=== PATIENT | female | born 1955 | race African-American/Black ===

== ENCOUNTER → 2016-10-30 | Day surgery (SDC) | payer OTHER ==
[~2016-10-30] VITALS: Ht 162.6 cm; Wt 100.0 kg
[~2016-10-30] MED LIST: BENA10TA PO; GLIP10TA6 PO; HYALURONIDASE/LIDOCAINE/EPINEPHRINE/BUPIVACAINE 4.5 ML SYR LEFT EYE ONE; HYALURONIDASE/LIDOCAINE/EPINEPHRINE/BUPIVACAINE 6 ML SYR LEFT EYE ONE; HYALURONIDASE/LIDOCAINE/EPINEPHRINE/BUPIVACAINE 6 ML SYR ONE; INSU1INJ5 SQ; INSULIN HUMAN REGULAR 1,000 UNITS/10 ML VIAL ONE; METF1000 PO; MIDAZOLAM HCL 2 MG/2 ML VIAL ONE; PROPARACAINE HCL 0.5% OPHT SOLN 15 ML BTL LEFT EYE ONE; PROPOFOL 200 MG/20 ML AMP ONE; SIMV20TA PO; SODIUM CHLORID 0.9% 500 ML INJ 500 ML ONE; TOBRAMYCIN 0.3%/DEXAMETHASONE 0.1% OPHT SUSP 5 ML BTL ONE; TOBRAMYCIN/DEXAMETHASONE OPTH OINT 3.5 GM TUBE LEFT EYE ONE
[2016-10-30 06:50] VITALS: BP 156/96; PULSE 87; RESP 16; TEMP 98.1; O2SAT 97
[2016-10-30] MEDS: FLURBIPROFEN 0.03% OPHT SOLN 2.5 ML BTL LEFT EYE SCH ×4 (06:55→07:10)
[2016-10-30] MEDS: TROPICAMIDE 1% OPHT SOLN 15 ML BTL LEFT EYE SCH ×4 (06:55→07:10)
[2016-10-30] MEDS: PHENYLEPHRINE HCL 10% OPTH SOLN 5 ML BTL LEFT EYE SCH ×4 (06:55→07:10)
[2016-10-30] MEDS: CYCLOPENTOLATE HCL 1% OPHT SOLN 2 ML BTL LEFT EYE SCH ×4 (06:55→07:10)
[2016-10-30 07:00] VITALS: PULSE 82
[2016-10-30 08:15] VITALS: PULSE 74
--- NOTE | 2016-10-30 10:13 | MP ---
cc: SHAWN ROWE M.D. DATE OF SURGERY: 10/30/2016 [facility] #[id number] PREOPERATIVE DIAGNOSIS Visually significant cataract, left eye. POSTOPERATIVE DIAGNOSIS Visually significant cataract, left eye. OPERATION Phacoemulsification with posterior chamber lens implantation, left eye. SURGEON Shawn Rowe MD ANESTHESIA Retrobulbar with MAC. COMPLICATIONS None. PROCEDURE After informed consent was obtained, the patient was brought into the operative suite and placed on appropriate monitors by the Anesthesia Service. The patient had received a prior retrobulbar injection of local anesthetic by the Anesthesia Service in the holding area. The patient's operative eye was then prepped and draped in the usual sterile fashion. A wire lid speculum was placed. A paracentesis incision was made in the peripheral cornea with a 1 mm odalis keratome. The anterior chamber was filled with viscoelastic. The anterior chamber was then entered through a stepped, clear corneal incision using a sharp 3 mm odalis keratome. A circular tear capsulorrhexis was then made with a bent needle cystitome. Following hydrodissection of the lens nucleus with balanced saline, phaco-emulsification of the nucleus was performed using a modified chopping technique. The remaining cortex was removed with irrigation/aspiration. The prior two procedures were both performed using the handpieces of the [employer] phaco unit. The capsular bag was then filled with viscoelastic. The intraocular lens was then injected into the capsular bag and positioned. The type of intraocular lens and its power can be found elsewhere in this chart. The remaining viscoelastic was then removed from the anterior chamber with the IA handpiece. The anterior chamber was reformed with balanced saline. The wound was then closed securely with stromal hydration. It was found to be watertight to an intraocular pressure of at least 30 mmHg by palpation. A small amount of balanced salt solution was then removed through the paracentesis site and the intraocular pressure at the end of the case was approximately 20 by palpation. All drapes were then removed. TobraDex ointment was then placed in the eye, which was closed beneath a semi-pressure patch dressing. The patient tolerated this procedure well and left the operating room awake and alert. The patient is to follow-up in my office in the morning. MD KALI Lozano/ALVAREZ /10:04 AM /10:08 AM
[2016-10-30 10:15] VITALS: BP 145/85; PULSE 68; RESP 16; TEMP 98; O2SAT 98
== END | disposition home or self-care (01) ==
LOC: CSDC 06:14
PROVIDERS: ATTEND Optometrist Occupational Vision
DX: H25.812 Combined forms of age-related cataract, left eye (principal); I10 Essential (primary) hypertension; E11.9 Type 2 diabetes mellitus without complications; Z79.4 Long term (current) use of insulin
CPT/HCPCS: 00142; 66984; 82948; J1815; J2250; J7040; V2632

== ENCOUNTER → 2017-07-30 | Day surgery (SDC) | payer OTHER ==
[~2017-07-30] VITALS: Ht 160 cm; Wt 104.0 kg
[~2017-07-30] MED LIST changes: +ACETAMINOPHEN 325 MG TAB PO PRN; +CHLORHEXIDINE GLUCONATE 2 % 1 PACK (2 CLOTHS) TOPICAL PRN; +CYCLOPENTOLATE HCL 1% OPHT SOLN 2 ML BTL ONE; +CYCLOPENTOLATE HCL 1% OPHT SOLN 2 ML BTL RIGHT EYE SCH; +FLURBIPROFEN 0.03% OPHT SOLN 2.5 ML BTL RIGHT EYE SCH; -HYALURONIDASE/LIDOCAINE/EPINEPHRINE/BUPIVACAINE 4.5 ML SYR LEFT EYE ONE; -HYALURONIDASE/LIDOCAINE/EPINEPHRINE/BUPIVACAINE 6 ML SYR LEFT EYE ONE; +HYALURONIDASE/LIDOCAINE/EPINEPHRINE/BUPIVACAINE 6 ML SYR RIGHT EYE ONE; -INSULIN HUMAN REGULAR 1,000 UNITS/10 ML VIAL ONE; +INSULIN HUMAN REGULAR 1,000 UNITS/10 ML VIAL SQ PRN; +LACTATED RINGER'S 1000 ML IV PRN; +LIDOCAINE HCL 1% PF 30 ML VIAL ONE; +METOPROLOL TARTRATE 25 MG TAB PO PRN; -MIDAZOLAM HCL 2 MG/2 ML VIAL ONE; +PHENYLEPHRINE HCL 10% OPTH SOLN 5 ML BTL ONE; +PHENYLEPHRINE HCL 10% OPTH SOLN 5 ML BTL RIGHT EYE SCH; +POVIDONE IODINE 5% (ANTISEPSIS KIT) 4 APPLICATIONS EACH NARE PRN; -PROPARACAINE HCL 0.5% OPHT SOLN 15 ML BTL LEFT EYE ONE; +PROPARACAINE HCL 0.5% OPHT SOLN 15 ML BTL ONE; +PROPARACAINE HCL 0.5% OPHT SOLN 15 ML BTL RIGHT EYE ONE; +SODIUM CHLORID 0.9% 500 ML IV PRN; -TOBRAMYCIN 0.3%/DEXAMETHASONE 0.1% OPHT SUSP 5 ML BTL ONE; -TOBRAMYCIN/DEXAMETHASONE OPTH OINT 3.5 GM TUBE LEFT EYE ONE; +TOBRAMYCIN/DEXAMETHASONE OPTH OINT 3.5 GM TUBE ONE; +TROPICAMIDE 1% OPHT SOLN 15 ML BTL ONE; +TROPICAMIDE 1% OPHT SOLN 15 ML BTL RIGHT EYE SCH
[2017-07-30 07:35] VITALS: PULSE 84
[2017-07-30 08:15] VITALS: PULSE 79
[2017-07-30 09:17] VITALS: TEMP 98
[2017-07-30 09:40] VITALS: BP 161/89; PULSE 71; RESP 16; O2SAT 97
--- NOTE | 2017-07-30 09:46 | MP ---
cc: SHAWN ROWE M.D. [facility] #: [id number] DATE: 07/30/2017 PREOPERATIVE DIAGNOSIS: Visually significant cataract right eye. POSTOPERATIVE DIAGNOSIS: Visually significant cataract right eye. OPERATION: Phacoemulsification with posterior chamber lens implantation, right eye. SURGEON: Shawn Rowe MD ANESTHESIA: Retrobulbar with MAC. COMPLICATIONS: None. PROCEDURE: After informed consent was obtained, the patient was brought into the operative suite and placed on appropriate monitors by the Anesthesia Service. The patient had received a prior retrobulbar injection of local anesthetic by the Anesthesia Service in the holding area. The patient's operative eye was then prepped and draped in the usual sterile fashion. A wire lid speculum was placed. A paracentesis incision was made in the peripheral cornea with a 1 mm odalis keratome. The anterior chamber was filled with viscoelastic. The anterior chamber was then entered through a stepped, clear corneal incision using a sharp 3 mm odalis keratome. A circular tear capsulorrhexis was then made with a bent needle cystitome. Following hydrodissection of the lens nucleus with balanced saline, phacoemulsification of the nucleus was performed using a modified chopping technique. The remaining cortex was removed with irrigation/aspiration. The prior two procedures were both performed using the handpieces of the [employer] phaco unit. The capsular bag was then filled with viscoelastic. The intraocular lens was then injected into the capsular bag and positioned. The type of intraocular lens and its power can be found elsewhere in this chart. The remaining viscoelastic was then removed from the anterior chamber with the IA handpiece. The anterior chamber was reformed with balanced saline. The wound was then closed securely with stromal hydration. It was found to be watertight to an intraocular pressure of at least 30 mmHg by palpation. A small amount of balanced salt solution was then removed through the paracentesis site and the intraocular pressure at the end of the case was approximately 20 by palpation. All drapes were then removed. TobraDex ointment was then placed in the eye, which was closed beneath a semi-pressure patch dressing. The patient tolerated this procedure well and left the operating room awake and alert. The patient is to follow-up in my office in the morning. MD KALI Lozano/ROSLYN /9:19 AM /9:41 AM
== END | disposition home or self-care (01) ==
LOC: PHSDC 06:40
PROVIDERS: ATTEND Optometrist Occupational Vision
DX: H25.811 Combined forms of age-related cataract, right eye (principal); I12.9 Hypertensive chronic kidney disease with stage 1 through stage 4 chronic kidney disease, or unspecified chronic kidney disease; E11.22 Type 2 diabetes mellitus with diabetic chronic kidney disease; N18.9 Chronic kidney disease, unspecified; H47.233 Glaucomatous optic atrophy, bilateral; H40.003 Preglaucoma, unspecified, bilateral; H33.8 Other retinal detachments; E78.5 Hyperlipidemia, unspecified; Z79.4 Long term (current) use of insulin; Z79.899 Other long term (current) drug therapy
CPT/HCPCS: 00142; 66984; 82948; J7040; V2632

== ENCOUNTER 2018-03-06 00:39 | Inpatient (IN) | payer OTHER ==
[2018-03-06] VITALS (22 sets, daily range): BP systolic 157–234; BP diastolic 80–121; PULSE 68–96; RESP 16–20; TEMP 96.9–98.7; O2SAT 95–99
[~2018-03-06] VITALS: Ht 160 cm; Wt 103.2 kg
[~2018-03-06 00:39] MED LIST changes: -ACETAMINOPHEN 325 MG TAB PO PRN; -CHLORHEXIDINE GLUCONATE 2 % 1 PACK (2 CLOTHS) TOPICAL PRN; -CYCLOPENTOLATE HCL 1% OPHT SOLN 2 ML BTL ONE; -CYCLOPENTOLATE HCL 1% OPHT SOLN 2 ML BTL RIGHT EYE SCH; -FLURBIPROFEN 0.03% OPHT SOLN 2.5 ML BTL RIGHT EYE SCH; -HYALURONIDASE/LIDOCAINE/EPINEPHRINE/BUPIVACAINE 6 ML SYR ONE; -HYALURONIDASE/LIDOCAINE/EPINEPHRINE/BUPIVACAINE 6 ML SYR RIGHT EYE ONE; -INSULIN HUMAN REGULAR 1,000 UNITS/10 ML VIAL SQ PRN; -LACTATED RINGER'S 1000 ML IV PRN; -LIDOCAINE HCL 1% PF 30 ML VIAL ONE; -METOPROLOL TARTRATE 25 MG TAB PO PRN; -PHENYLEPHRINE HCL 10% OPTH SOLN 5 ML BTL ONE; -PHENYLEPHRINE HCL 10% OPTH SOLN 5 ML BTL RIGHT EYE SCH; -POVIDONE IODINE 5% (ANTISEPSIS KIT) 4 APPLICATIONS EACH NARE PRN; -PROPARACAINE HCL 0.5% OPHT SOLN 15 ML BTL ONE; -PROPARACAINE HCL 0.5% OPHT SOLN 15 ML BTL RIGHT EYE ONE; -PROPOFOL 200 MG/20 ML AMP ONE; -SODIUM CHLORID 0.9% 500 ML INJ 500 ML ONE; -SODIUM CHLORID 0.9% 500 ML IV PRN; -TOBRAMYCIN/DEXAMETHASONE OPTH OINT 3.5 GM TUBE ONE; -TROPICAMIDE 1% OPHT SOLN 15 ML BTL ONE; -TROPICAMIDE 1% OPHT SOLN 15 ML BTL RIGHT EYE SCH
[2018-03-06] MEDS ORDERED: SODIUM CHLOR 0.9% 1000 ML INJ 1,000 ML IV ONE (01:00)
--- NOTE | 2018-03-06 01:07 | PD ---
HPI . weakness Chief Complaint: Diabetic Time Seen by Provider: 00:57 Travel History International Travel<30 days: No Contact w/Intl Traveler<30days: No Traveled to known affect area: No History of Present Illness HPI Patient reports that she woke up this evening and she tried to stand up and felt like her legs were like spaghetti she was talking slowly to her according to her was helping her to get up out of the bath where she said that is what she was in the bathroom and felt very weak patient in the ER is awake alert however she is speaking as if she is intoxicated she has a slurring sound however she does not seem to be intoxicated she denies alcohol she denies sleeping pills she denies any new medications denies antidepressants or any Neurontin and Lyrica any sedate of medications. Neuro exam she has no focal weakness she has no sensory deficits she is able to give a good history she thinks all of her symptoms began about 11:00 2 hours prior to presentation no focal weakness is elicited no sensory deficit and she has inability to speak is just that she sounds slightly slurred [facility] Past Medical History Arthritis: No Asthma: Yes Autoimmune Disease: No Blood Disorders: No Heart Rhythm Problems: No Cancer: No Cardiovascular Problems: Yes (dvt in r leg in the past) High Cholesterol: No Chemotherapy: No Chest Pain: No Congestive Heart Failure: No COPD: No Cerebrovascular Accident: No Diabetes: Yes (TYPE 2 DIABETES) Diminished Hearing: No Endocrine: Yes GERD: No Glaucoma: No Genitourinary: No Headaches: Yes (MIGRAINES) Hepatitis: No Hiatal Hernia: No Hypertension: No Immune Disorder: No Kidney Stones: No Musculoskeletal: Yes (OSTEOARTHRITIS, SHOULDER IMPINGEMENT) Neurologic: Yes (DIABETIC NEUROPATHY) Psychiatric: No Reproductive: No Respiratory: Yes (SLEEP APNEA) Myocardial Infarction: No Radiation Therapy: No Renal Failure: No Seizures: No Sickle Cell Disease: No Sleep Apnea: No Thyroid Disease: No Ulcer: No Menopausal: Yes Past Surgical History Abdominal Surgery: No AICD: No Cardiac Surgery: No Ear Surgery: Yes (RIGHT EYE RETINA DETATCHMENT, LEFT EYE CATARACT) Endocrine Surgery: No Eye Surgery: No Genitourinary Surgery: No Gynecologic Surgery: Yes (total hysterectomy breast reduction) Hysterectomy: Yes (PARTIAL) Joint Replacement: No Oral Surgery: No Pacemaker: No Thoracic Surgery: No Other Surgery: Yes (1995 PARTIAL HYSTERECTOMY) Social History Alcohol Use: No Tobacco Use: No Substance Use: No Allergies-Medications (Allergen,Severity, Reaction): Coded Allergies: No Known Allergies (Verified , 07/30/17) Reported Meds & Prescriptions Reported Meds & Active Scripts Active Reported Glipizide 10 Mg Tab 10 Mg PO DAILY Take 30 minutes before a meal Simvastatin 20 Mg Tab 20 Mg PO HS Benazepril (Benazepril HCl) 10 Mg Tab 10 Mg PO DAILY Levemir Flextouch Pen Inj (Insulin Detemir) 300 unit/3 ML Pen 60 Units SQ DAILY Review of Systems Except as stated in HPI: all other systems reviewed are Neg Musculoskeletal: Positive: Weakness Neurologic: Positive: Slurred Speech Physical Exam Narrative GENERAL: awake alert and has slurred speech as if her teeth were loose in her head SKIN: Warm and dry. HEAD: Atraumatic. Normocephalic. EYES: Pupils equal and round. No scleral icterus. No injection or drainage. ENT: No nasal bleeding or discharge. Mucous membranes pink and moist. NECK: Trachea midline. No JVD. CARDIOVASCULAR: Regular rate and rhythm. RESPIRATORY: No accessory muscle use. Clear to auscultation. Breath sounds equal bilaterally. GASTROINTESTINAL: Abdomen soft, non-tender, nondistended. Hepatic and splenic margins not palpable. MUSCULOSKELETAL: Extremities without clubbing, cyanosis, or edema. No obvious deformities. NEUROLOGICAL: Awake and alert. No obvious cranial nerve deficits. Motor grossly within normal limits. Five out of 5 muscle strength in the arms and legs. thick slurring speech. 5/5 grocery bagger bilateral and legs lift 5/5 bilateral and no sensory deficits , PSYCHIATRIC: Pt speech is thick slurred like molasses in her mouth Appropriate mood and affect; insight and judgment normal. Data Data Last Documented VS Vital Signs Date Time Temp Pulse Resp B/P (MAP) Pulse Ox O2 Delivery O2 Flow Rate FiO2 03/06/18 02:41 73 16 221/103 (142) 97 Room Air 03/06/18 02:20 3.00 03/06/18 00:47 98.3 Orders Orders Complete Blood Count With Diff (03/06/18 00:58) Comprehensive Metabolic Panel (03/06/18 00:58) Lipase (03/06/18 00:58) Beta Hydroxybutyrate (Acetone) (03/06/18 00:58) Sodium Chlor 0.9% 1000 Ml Inj (Ns 1000 M (03/06/18 01:00) Ct Brain W/O Iv Contrast(Rout) (03/06/18 ) Drug Screen, Random Urine (03/06/18 01:19) Alcohol (Ethanol) (03/06/18 01:19) Tylenol (Acetaminophen) (03/06/18 01:19) Aspirin Chew (Aspirin Chew) (03/06/18 01:30) Labetalol Inj (Trandate Inj) (03/06/18 01:45) Cta Neck W Iv Contrast W 3d (03/06/18 ) Insulin Human Regular Inj (Novolin R Inj (03/06/18 02:45) Hydralazine Inj (Apresoline Inj) (03/06/18 02:45) Insulin Human Regular Inj (Novolin R Inj (03/06/18 02:45) Admit Order (Ed Use Only) (03/06/18 02:51) Labs Laboratory Tests Test 03/06/18 01:05 03/06/18 01:35 03/06/18 02:35 White Blood Count 5.2 TH/MM3 Red Blood Count 4.70 MIL/MM3 Hemoglobin 12.4 GM/DL Hematocrit 37.9 % Mean Corpuscular Volume 80.6 FL Mean Corpuscular Hemoglobin 26.3 PG Mean Corpuscular Hemoglobin Concent 32.6 % Red Cell Distribution Width 13.5 % Platelet Count 202 TH/MM3 Mean Platelet Volume 11.5 FL Neutrophils (%) (Auto) 46.0 % Lymphocytes (%) (Auto) 43.4 % Monocytes (%) (Auto) 6.6 % Eosinophils (%) (Auto) 1.8 % Basophils (%) (Auto) 2.2 % Neutrophils # (Auto) 2.5 TH/MM3 Lymphocytes # (Auto) 2.2 TH/MM3 Monocytes # (Auto) 0.3 TH/MM3 Eosinophils # (Auto) 0.1 TH/MM3 Basophils # (Auto) 0.1 TH/MM3 CBC Comment DIFF FINAL Differential Comment Blood Urea Nitrogen 8 MG/DL Creatinine 1.00 MG/DL Random Glucose 522 MG/DL Total Protein 8.7 GM/DL Albumin 2.8 GM/DL Calcium Level 9.0 MG/DL Alkaline Phosphatase 128 U/L Aspartate Amino Transf (AST/SGOT) 24 U/L Alanine Aminotransferase (ALT/SGPT) 24 U/L Total Bilirubin 0.3 MG/DL Sodium Level 134 MEQ/L Potassium Level 3.6 MEQ/L Chloride Level 100 MEQ/L Carbon Dioxide Level 28.2 MEQ/L Anion Gap 6 MEQ/L Estimat Glomerular Filtration Rate 68 ML/MIN Lipase 195 U/L B-Hydroxybutyrate 0.08 MMOL/L Acetaminophen Level LESS THAN 2.0 MCG/ML Ethyl Alcohol Level LESS THAN 3 MG/DL Urine Opiates Screen NEG Urine Barbiturates Screen NEG Urine Amphetamines Screen NEG Urine Benzodiazepines Screen NEG Urine Cocaine Screen NEG Urine Cannabinoids Screen NEG MDM Medical Decision Making Medical Screen Exam Complete: Yes Emergency Medical Condition: Yes Differential Diagnosis Differential diagnosis includes vertebral artery dissection causing cerebellar malfunction versus intoxication with alcohol causing slurring of speech and ataxia versus medication causing his symptoms versus ischemic event cerebral causing this event versus trauma to her cerebellar area causing the ataxia slurred speech versus anxiety causing dissociative behavior and slurred speech Narrative Course Patient CT has no findings patient is a CTA that has normal vertebral arteries normal carotid arteries patient has hypertension which is controlled with labetalol 10 mg and then 5 mg of hydralazine and patient's sugar is controlled with a liter of fluid and then 4 units IV sugar goes from 522 originally to 339 prior to the insulin and then is in the 200s after the sliding scale coverage patient is admitted for MRI/MRA in the morning Dr. Brock Ryan admits for [facility] I speak to follow-up neurology about the symptoms and decided that aspirin and then morning MRIs and neuro consult indicated patient is stable at this time symptoms are resolving. BP NOW 167 SBP PT BLOOD GLUCOSE CONTROLLED AND PT FEELS MUCH BETTER CTA neck normal MRI/MRA brain for Everardo Ribera MD March 06, 2018 01:07
--- NOTE | 2018-03-06 01:23 | RADRPT ---
EXAM DATE/TIME: 03/06/2018 01:12 [facility] COMPARISON: No previous studies available for comparison. INDICATIONS : Slurred speech with high blood pressure. RADIATION DOSE: 56.71 CTDIvol (mGy) MEDICAL HISTORY : Hypertension. Diabetes mellitus type 2. Deep venous thrombosis. SURGICAL HISTORY : Hysterectomy. ENCOUNTER: Initial ACUITY: 2 days PAIN SCALE: 0/10 LOCATION: cranial TECHNIQUE: Multiple contiguous axial images were obtained of the head. Using automated exposure control and adj ustment of the mA and/or kV according to patient size, radiation dose was kept as low as reasonably a chievable to obtain optimal diagnostic quality images. DICOM format image data is available electro nically for review and comparison. FINDINGS: CEREBRUM: The ventricles are normal for age. No evidence of midline shift, mass lesion, hemorrhage or acute in farction. No extra-axial fluid collections are seen. POSTERIOR FOSSA: The cerebellum and brainstem are intact. The 4th ventricle is midline. The cerebellopontine angle i s unremarkable. EXTRACRANIAL: The visualized portion of the orbits is intact. SKULL: The calvaria is intact. No evidence of skull fracture. CONCLUSION: Negative noncontrast head CT. Tima Judge MD on March 06, 2018 at 1:21 Board Certified Radiologist. This report was verified electronically.
[2018-03-06] MEDS ORDERED: ASPIRIN 81 MG CHEW TAB CHEW ONE (01:30)
[2018-03-06 01:31] LABS: AUTOMATED NEUTROPHIL # 2.5 TH/MM3 (1.8-7.7); BASOPHIL # 0.1 TH/MM3 (0-0.2); BASOPHIL % 2.2 % (0.0-2.0); EOSINOPHIL # 0.1 TH/MM3 (0-0.4); EOSINOPHIL % 1.8 % (0.0-4.0); HEMATOCRIT 37.9 % (35.0-46.0); HEMOGLOBIN 12.4 GM/DL (11.6-15.3); LYMPH % 43.4 % (9.0-44.0); LYMPHOCYTE # 2.2 TH/MM3 (1.0-4.8); MEAN CELL VOLUME 80.6 FL (80.0-100.0); MEAN CORPUSCULAR HEMOGLOBIN 26.3 PG (27.0-34.0); MEAN CORPUSCULAR HGB CONC 32.6 % (32.0-36.0); MEAN PLATELET VOLUME 11.5 FL (7.0-11.0); MONO % 6.6 % (0.0-8.0); MONOCYTE # 0.3 TH/MM3 (0-0.9); PLATELET COUNT 202 TH/MM3 (150-450); RED CELL DISTRIBUTION WIDTH 13.5 % (11.6-17.2); WHITE BLOOD COUNT 5.2 TH/MM3 (4.0-11.0)
[2018-03-06] MEDS ORDERED: GLIP10TA6 PO (01:43)
[2018-03-06 01:44] LABS: CHLORIDE 100 MEQ/L (98-107); SODIUM (NA) 134 MEQ/L (136-145)
[2018-03-06] MEDS ORDERED: LABETALOL HCL 100 MG/20 ML VIAL IV PUSH ONE (01:45)
[2018-03-06 01:48] LABS: ALBUMIN 2.8 GM/DL (3.4-5.0); BICARBONATE 28.2 MEQ/L (21.0-32.0); BLOOD UREA NITROGEN 8 MG/DL (7-18)
[2018-03-06 01:51] LABS: ALT (GPT) 24 U/L (10-53); AST (GOT) 24 U/L (15-37); GLOMERULAR FILTRATION RATE 68 ML/MIN (>89)
[2018-03-06 01:53] LABS: TOTAL BILIRUBIN ADULT 0.3 MG/DL (0.2-1.0); TOTAL PROTEIN 8.7 GM/DL (6.4-8.2)
[2018-03-06 02:23] LABS: ALKALINE PHOSPHATASE 128 U/L (45-117)
[2018-03-06 02:38] LABS: GLUCOSE,RANDOM 522 MG/DL (74-106)
[2018-03-06] MEDS ORDERED: hydrALAZINE HCL 20 MG/ML VIAL IV PUSH ONE (02:45)
[2018-03-06] MEDS ORDERED: INSULIN HUMAN REGULAR 1,000 UNITS/10 ML VIAL IV PUSH ONE ×2 (02:45)
[2018-03-06] MEDS ORDERED: IOHEXOL 350 MG/ML 10 ML VIAL (for RAD DIAG) IVCONTRAST ONE (02:55)
[2018-03-06] MEDS ORDERED: GLUCAGON 1 MG/ML VIAL OTHER PRN (03:00)
[2018-03-06] MEDS ORDERED: DEXTROSE 50% IN WATER 50 ML VIAL(D50) IV PUSH PRN (03:00)
--- NOTE | 2018-03-06 03:34 | RADRPT ---
EXAM DATE/TIME: 03/06/2018 02:52 [facility] COMPARISON: No previous studies available for comparison. INDICATIONS : Evaluate for carotid occlusion. Slurred speech. High blood pressure IV CONTRAST: 80 cc Omnipaque 350 (iohexol) IV RADIATION DOSE: 43.06 CTDIvol (mGy) MEDICAL HISTORY : Hypertension. Deep venous thrombosis. Diabetes mellitus type 2. SURGICAL HISTORY : Hysterectomy. ENCOUNTER: Initial ACUITY: 1 day PAIN SCALE: 0/10 LOCATION: Bilateral carotids Elevated flow velocities and ICA/CCA ratios have been found to correlate with increased degrees of vessel stenosis, calculated as percentage of diameter relative to a normal segment of distal ICA/CCA. TECHNIQUE: Volumetric scanning was performed using a multirow detector CT scanner. The data was post processed with a variety of visualization algorithms including full-volume maximum intensity pro jection, multiplanar sliding thin-slab reformation, curved-planar reformation, and surface-rendering techniques. Using automated exposure control and adjustment of the mA and/or kV according to patient size, radiation dose was kept as low as reasonably achievable to obtain optimal diagnostic quality i mages. DICOM format image data is available electronically for review and comparison. FINDINGS: AORTIC ARCH: There is a bovine origin of the great vessels from the aorta. No evidence of ostial narrowing. RIGHT CAROTID: The common carotid artery is intact. The carotid bulb has a normal configuration w ithout ulceration or narrowing. The internal carotid artery lumen is smooth without stenosis. The ex ternal carotid artery is intact. LEFT CAROTID: The common carotid artery is intact. The carotid bulb has a normal configuration w ithout ulceration or narrowing. The internal carotid artery lumen is smooth without stenosis. The e xternal carotid artery is intact. VERTEBRALS: The vertebral arteries have a symmetric diameter. No stenotic lesions are seen. CONCLUSION: Negative study with no evidence of carotid occlusion. Tima Judge MD on March 06, 2018 at 3:27 Board Certified Radiologist. This report was verified electronically.
[2018-03-06 04:42] LABS: ACETAMINOPHEN LESS THAN 2.0 MCG/ML (10.0-30.0)
[2018-03-06 06:53] LABS: BICARBONATE 28.7 MEQ/L (21.0-32.0); CALCIUM 8.6 MG/DL (8.5-10.1); CREATININE 0.65 MG/DL (0.50-1.00)
--- NOTE | 2018-03-06 07:19 | MH ---
cc: Brock Ryan MD DATE OF ADMISSION: 03/06/2018 ADMISSION DIAGNOSES: 1. Episode of slurred speech with discoordination of her left arm and trouble with walking and balance, questionable transient ischemic attack or slight stroke. 2. Accelerated hypertension. 3. Type 2 diabetes mellitus with increased hyperglycemia. 4. Hyperlipidemia. PERTINENT HISTORY: This is a 62-year-old black female who, last night, woke up. She tried to stand, but she felt like her legs were a little weak. She had trouble walking, felt that her balance was off when she got up to go the bathroom. She was making some slurring of her words, and she states to me that she felt like her left arm was not as coordinated, as well. She had no confusion, no double vision or blurred vision, no trouble with any numbness or tingling in her arms and legs. She states that her speech is back to normal now. She has gotten up and walked to the bathroom in the ED and states that was better than it was earlier in the night. When she came to the ED, her blood pressure was quite elevated; it was up as high as 234/106 and 218/121. Her blood sugar was quite elevated at 522. She has been given insulin and her blood sugar has come down. Her blood pressure has come down as well after labetalol, her most recent blood pressure reading being 157/93. The neurologist was consulted by the ED physician and recommended she be put on aspirin and also order MRI studies. She had a CT brain scan that was negative on admission and a CTA of the neck that showed no acute process. She is admitted for further evaluation, as mentioned MEDICAL HISTORY: She has type 2 diabetes mellitus for 12 years and has been on an oral agent and glipizide and Levemir insulin at night. she has hypertension and hyperlipidemia. Denies any heart disease. No prior stroke or seizure. No liver or kidney disease. No colon disease. She has had a negative colonoscopy about 10 years ago. No thyroid disease. No angina or heart failure. PAST SURGICAL HISTORY: She has had bilateral breast reduction and an elective . She had a total abdominal hysterectomy with 1 ovary removed, had a colonoscopy about 10 years. ALLERGIES: NONE. CURRENT MEDICATIONS: 1. She is on benazepril 10 mg a day. 2. Levemir FlexTouch Pen 300 units per 3 mL; she uses 60 units at night. 3. She is on glipizide 10 mg a day. 4. Simvastatin 20 mg a day. FAMILY HISTORY: Her mother and father are living. Mother is 83 and apparently has taken diabetes medicine in the past. Father is 84 and has diabetes. SOCIAL HISTORY: She is . Never smoked. She had 1 that was terminated by an . No alcohol. REVIEW OF SYSTEMS: GENERAL: No fever, chills, sweats. HEENT: Had no vision problem. No sore throat, no runny nose, no hearing complaints. CARDIOVASCULAR: No chest pain, orthopnea, PND. PULMONARY: No cough, hemoptysis, wheezing. GASTROINTESTINAL: No nausea, vomiting, constipation, diarrhea or rectal bleeding. GENITOURINARY: No dysuria, urgency, frequency, hematuria. MUSCULOSKELETAL: Without any pain. SKIN: Without rash. PSYCHIATRIC: Without complaints. NEUROLOGIC: As mentioned. PHYSICAL EXAMINATION: GENERAL: Pleasant black female in no distress. She is alert and oriented. VITAL SIGNS: Pulse 77, respiratory rate 16, BP 157/93, temperature is afebrile, pulse oximetry 97% on room air. HEENT: Pupils equal. Sclerae nonicteric. TMs clear. Nose negative. Mouth without inflammation or lesion. NECK: Without bruit. No JVD. HEART: Regular rate and rhythm. No murmurs, rubs or gallops. LUNGS: Clear. ABDOMEN: Soft, nontender, no masses. EXTREMITIES: No edema. Pulses 2+. SKIN: Negative. NEUROLOGIC: She is oriented x3. Sensation intact. Motor strength appears equal bilaterally. She did have trouble with [id number] testing of her left hand, with some dysmetria. Her speech did not appear to be slurred. I did not attempt to walk her this morning. LABORATORY DATA: As mentioned, her blood sugar was 522 on admission. Apparently her blood sugar on last Accu-Chek was 121, just checked at 5:57. Her sodium is 134, potassium 3.6, CO2 is 28.2, BUN 8, creatinine 1.0. GFR 68, alkaline phosphatase 128, total protein 8.7, albumin 2.8, lipase 195. White count 5.2, hemoglobin 12.4. Urine drug screen was negative. Beta hydroxybutyrate was normal at 0.08. CT brain scan showed no acute process. CTA of the neck showed no vertebral artery abnormality, and carotid arteries showed no evidence of occlusion. ASSESSMENT: As noted. PLAN: The patient will be put back on her Lotensin 10 mg a day, but the pharmacy will be substituting that with lisinopril 10 mg a day. She will be resumed on her Levemir 60 units tonight. She is going to be put on a diabetic diet and her glipizide will be ordered beginning this morning. Neurology has been consulted. She is on an aspirin daily. Further brain imaging is be done with an MRI of the brain. MD AMA Timmons/BHAVNA , 06:32 AM , 07:18 AM
--- NOTE | 2018-03-06 08:34 | RADRPT ---
EXAM DATE/TIME: 03/06/2018 08:25 [facility] COMPARISON: CTA CAROTID ARTERIES W 3D RECON, March 06, 2018, 2:52. CT BRAIN W/O CONTRAST, March 06, 2018, 1:12. INDICATIONS : Slurred speech. Unsteady gait. Left upper extremity weakness. MEDICAL HISTORY : Hypertension. Diabetes mellitus type 2. SURGICAL HISTORY : Hysterectomy. Breast augmentation. ENCOUNTER: Initial ACUITY: 1 day PAIN SCORE: 0/10 LOCATION: cranial Please note a normal MRA of the brain does not entirely exclude the possibility of a small aneurysm, nor the possibility of distal intracranial vessel disease. TECHNIQUE: 3D time of flight MRA was performed. Source images, multiplanar STS MIP, and 3D volume MIP reconstru ctions were reviewed. FINDINGS: There is excellent visualization of the major intracranial arteries out to the second-order branch ve ssels. There is no evidence for aneurysm, vessel truncation or stenosis, and no evidence for vascula r malformation. Posterior communicating arteries are not visualized on this exam, however, these were n't visualized on comparison CTA carotid arteries. CONCLUSION: Normal examination. Gema Kumar MD on March 06, 2018 at 8:27 Board Certified Radiologist. This report was verified electronically.
--- NOTE | 2018-03-06 08:45 | RADRPT ---
EXAM DATE/TIME: 03/06/2018 08:25 [place] COMPARISON: No previous studies available for comparison. INDICATIONS : Slurred speech. Unsteady gait. Left upper extremity weakness. MEDICAL HISTORY : Hyperthyroidism. Diabetes mellitus type 2. SURGICAL HISTORY : Hysterectomy. Breast augmentation. ENCOUNTER: Initial ACUITY: 1 day PAIN SCORE: 0/10 LOCATION: cranial TECHNIQUE: Multiplanar, multisequence MRI of the brain was performed without contrast. FINDINGS: CEREBRUM: The ventricles are normal for age. No evidence of midline shift, mass lesion, hemorrhage or acute in farction. No extraaxial fluid collections are seen. The pituitary gland and suprasellar cistern are normal in configuration. WHITE MATTER: There are scattered foci of increased T2 signal identified within the periventricular white matter an d within the region of the black radiata as well as within the left cerebellum. There is a focal are a of increased T2 signal identified within the right pelvis which is associated with restricted diffu melissa. POSTERIOR FOSSA: The cerebellum and brainstem are intact. The 4th ventricle is midline. The cerebellopontine angle is unremarkable. The cerebellar tonsils are normal in position. DIFFUSION IMAGING: Focal area of resected diffusion involving the right thalamus. EXTRACRANIAL: The visualized portions of the orbits and paranasal sinuses are unremarkable. CONCLUSION: Focal area for strict diffusion involving the right pelvis consistent with acute infarct. The scatter ed areas of increased T2 signal identified throughout the remainder of the brain are nonspecific and not associated with restricted diffusion. These likely reflect chronic small vessel ischemic change.. Gema Kumar MD on March 06, 2018 at 8:39 Board Certified Radiologist. This report was verified electronically.
[2018-03-06] MEDS ORDERED: LISINOPRIL 10 MG TAB PO SCH ×2 (09:00→21:00)
[2018-03-06] MEDS ORDERED: glipiZIDE 10 MG TAB PO SCH (09:00)
--- NOTE | 2018-03-06 09:55 | MB ---
cc: Marybeth Vazquez MD DATE: 03/06/2018 REASON FOR CONSULTATION: Stroke. HISTORY OF PRESENT ILLNESS: This is a 62-year-old woman that woke up last night trying to stand ,felt like her legs were weak. Trouble walking, balance was off. Had some slurring of speech and came in for symptoms. Found to have accelerated hypertension up to 234/106. Sugar was 522. She was given some insulin. Blood pressure has decreased after labetalol down to 157/93. Put on an aspirin and admitted to the hospital. Currently, she still states that her balance is a little bit off, and her speech is not back to normal, but it is improved. PAST MEDICAL HISTORY: Type 2 diabetes, hypertension, hyperlipidemia. PAST SURGICAL HISTORY: Breast reduction, hysterectomy, colonoscopy. ALLERGIES: NONE. CURRENT MEDICATIONS: 1. Benazepril 10 mg a day. 2. Levemir FlexTouch pen. 3. Glipizide 10 mg a day. 4. Simvastatin 20 mg a day. FAMILY HISTORY: Both parents are alive. Mother has diabetes. Father also had diabetes. SOCIAL HISTORY: , does not smoke, no alcohol. PHYSICAL EXAMINATION: GENERAL: Currently, pulse is 76, respiratory rate 16, blood pressure 179/92, sating at 99% on room air. NECK: Supple. No appreciable bruits. HEART: Regular. NEUROLOGIC: She is awake and alert. Her speech is mildly dysarthric, but she can repeat words. There is no aphasia. Pupils are reactive. Visual aviles full. Otherwise, face symmetrical and tongue midline. Motor kimble, no significant drift or leg lag. She did [id number] intact without any dysmetria bilaterally. Sensory is intact. DTRs are 1+. Toes withdraw. Gait is withheld at this time. Defer to PT for safety. LABORATORY DATA: Reviewed. Her glucose was 522 when she came in. Currently, it is 117. Hemoglobin A1c is pending. Lipids are pending. Albumin 2.8. Potassium was 3.2 this morning. Tox screen was negative. IMAGING STUDIES: Neck CTA was negative. MRA of the brain was negative for any acute findings. Brain MRI did show focal area of abnormality left thalamic region consistent with an acute infarct. Echo still pending. IMPRESSION: 1. Right thalamic infarct. 2. Hypertension, poor control. 3. Diabetes, poor control. RECOMMENDATIONS: Start her on aspirin therapy. Adequate blood pressure and diabetes management needs to be stressed. PT, OT, and speech therapy assessment. Continue her statin, adjusting dose depending on what her LDL level is and if stable, can be either discharged home with home PT or if PT deemed needed, then inpatient evaluation. MD OLGA Lizarraga/FROYLAN , 09:06 AM , 09:54 AM
[2018-03-06] MEDS: ASPIRIN EC 325 MG TABEC PO SCH (10:02)
[2018-03-06 11:14] LABS: CHOLESTEROL 160 MG/DL (120-200); TRIGLYCERIDES 77 MG/DL (42-150)
[2018-03-06 11:16] LABS: CHOLESTEROL/ HDL RATIO 2.42 RATIO; HDL CHOLESTEROL 65.9 MG/DL (40.0-60.0); LDL CHOLESTEROL 79 MG/DL (0-99)
[2018-03-06] MEDS ORDERED: LISINOPRIL 10 MG TAB PO ONE (13:30)
[2018-03-06] MEDS ORDERED: POTASSIUM CHLORIDE 20 MEQ CONTROLLED RELEASE TAB PO ONE (13:45)
[2018-03-06 14:43] LABS: HEMOGLOBIN A1C 12.4 % (4.3-6.0)
[2018-03-06] MEDS ORDERED: NON-FORMULARY DRUG (Simvastatin 20 MG) PO SCH (21:00)
[2018-03-06] MEDS ORDERED: INSULIN DETEMIR SQ SCH (21:00)
[2018-03-06] MEDS: INSULIN DETEMIR SQ SCH (21:00)
[2018-03-06] MEDS: PRAVASTATIN SOD 40 MG TAB PO SCH (21:56)
[2018-03-06] MEDS ORDERED: amLODIPine BESYLATE 5 MG TAB PO ONE (22:00)
[2018-03-06] MEDS ORDERED: LORazepam 0.5 MG TAB PO ONE (22:30)
[2018-03-07] VITALS (8 sets, daily range): BP systolic 161–199; BP diastolic 77–97; PULSE 73–89; RESP 19–20; TEMP 96.4–98.6; O2SAT 94–100
[2018-03-07 07:57] LABS: CALCIUM 8.8 MG/DL (8.5-10.1)
[2018-03-07] MEDS ORDERED: GLIMEPIRIDE 4 MG TAB PO SCH (08:00)
[2018-03-07 08:02] LABS: CREATININE 0.71 MG/DL (0.50-1.00)
[2018-03-07] MEDS: LISINOPRIL 20 MG TAB PO SCH ×2 (08:45→20:46)
[2018-03-07] MEDS: ASPIRIN EC 325 MG TABEC PO SCH (08:46)
[2018-03-07] MEDS: amLODIPine BESYLATE 5 MG TAB PO SCH ×2 (09:54→20:46)
[2018-03-07] MEDS ORDERED: cloNIDine HCL 0.1 MG TAB PO ONE (13:00)
--- NOTE | 2018-03-07 15:43 | HHI.PR ---
Subjective Remarks No shortness of breath, no chest pain, no abdominal pain Objective Vitals Vital Signs Date Time Temp Pulse Resp B/P (MAP) Pulse Ox O2 Delivery O2 Flow Rate FiO2 03/07/18 12:00 97.5 89 20 185/93 (123) 96 03/07/18 08:00 97.6 86 20 199/95 (129) 97 03/07/18 04:00 96.9 78 20 186/94 (124) 95 03/07/18 00:00 97.9 75 20 192/86 (121) 94 03/06/18 20:30 91 03/06/18 20:00 97.7 90 20 219/102 (141) 96 03/06/18 18:43 18 03/06/18 16:14 96 03/06/18 16:00 97.5 78 19 193/98 (129) 95 03/07/18 03/07/18 03/08/18 15:00 23:00 07:00 Intake Total 120 ml Balance 120 ml Intake Oral 120 ml Result Diagram: 03/06/18 0105 03/07/18 0611 Other Results Laboratory Tests Test 03/06/18 01:05 03/06/18 01:35 03/06/18 02:35 03/06/18 06:05 White Blood Count 5.2 TH/MM3 Red Blood Count 4.70 MIL/MM3 Hemoglobin 12.4 GM/DL Hematocrit 37.9 % Mean Corpuscular Volume 80.6 FL Mean Corpuscular Hemoglobin 26.3 PG Mean Corpuscular Hemoglobin Concent 32.6 % Red Cell Distribution Width 13.5 % Platelet Count 202 TH/MM3 Mean Platelet Volume 11.5 FL Neutrophils (%) (Auto) 46.0 % Lymphocytes (%) (Auto) 43.4 % Monocytes (%) (Auto) 6.6 % Eosinophils (%) (Auto) 1.8 % Basophils (%) (Auto) 2.2 % Neutrophils # (Auto) 2.5 TH/MM3 Lymphocytes # (Auto) 2.2 TH/MM3 Monocytes # (Auto) 0.3 TH/MM3 Eosinophils # (Auto) 0.1 TH/MM3 Basophils # (Auto) 0.1 TH/MM3 CBC Comment DIFF FINAL Differential Comment Blood Urea Nitrogen 8 MG/DL 6 MG/DL Creatinine 1.00 MG/DL 0.65 MG/DL Random Glucose 522 MG/DL 117 MG/DL Total Protein 8.7 GM/DL Albumin 2.8 GM/DL Calcium Level 9.0 MG/DL 8.6 MG/DL Alkaline Phosphatase 128 U/L Aspartate Amino Transf (AST/SGOT) 24 U/L Alanine Aminotransferase (ALT/SGPT) 24 U/L Total Bilirubin 0.3 MG/DL Sodium Level 134 MEQ/L 141 MEQ/L Potassium Level 3.6 MEQ/L 3.2 MEQ/L Chloride Level 100 MEQ/L 108 MEQ/L Carbon Dioxide Level 28.2 MEQ/L 28.7 MEQ/L Anion Gap 6 MEQ/L 4 MEQ/L Estimat Glomerular Filtration Rate 68 ML/MIN 112 ML/MIN Lipase 195 U/L B-Hydroxybutyrate 0.08 MMOL/L Acetaminophen Level LESS THAN 2.0 MCG/ML Ethyl Alcohol Level LESS THAN 3 MG/DL Urine Opiates Screen NEG Urine Barbiturates Screen NEG Urine Amphetamines Screen NEG Urine Benzodiazepines Screen NEG Urine Cocaine Screen NEG Urine Cannabinoids Screen NEG Hemoglobin A1c 12.4 % Triglycerides Level 77 MG/DL Cholesterol Level 160 MG/DL LDL Cholesterol 79 MG/DL HDL Cholesterol 65.9 MG/DL Cholesterol/HDL Ratio 2.42 RATIO Test 03/07/18 06:11 Blood Urea Nitrogen 10 MG/DL Creatinine 0.71 MG/DL Random Glucose 166 MG/DL Calcium Level 8.8 MG/DL Sodium Level 141 MEQ/L Potassium Level 3.5 MEQ/L Chloride Level 108 MEQ/L Carbon Dioxide Level 27.0 MEQ/L Anion Gap 6 MEQ/L Estimat Glomerular Filtration Rate 101 ML/MIN Imaging Last Impressions Neck CTA 03/06/18 0000 Signed Impressions: Service Date/Time: Tuesday, March 06, 2018 02:52 - CONCLUSION: Negative study with no evidence of carotid occlusion. Tima Judge MD Head Magnetic Resonance Angiography 03/06/18 0000 Signed Impressions: Service Date/Time: Tuesday, March 06, 2018 08:25 - CONCLUSION: Normal examination. Gema Kumar MD Head CT 03/06/18 0000 Signed Impressions: Service Date/Time: Tuesday, March 06, 2018 01:12 - CONCLUSION: Negative noncontrast head CT. Tima Judge MD Brain MRI 03/06/18 0000 Signed Impressions: Service Date/Time: Saturday, March 06, 2018 08:25 - CONCLUSION: Focal area for strict diffusion involving the right pelvis consistent with acute infarct. The scattered areas of increased T2 signal identified throughout the remainder of the brain are nonspecific and not associated with restricted diffusion. These likely reflect chronic small vessel ischemic change.. Gema Kumar MD Objective Remarks Exam: Pleasant black female in no distress HEENT: Pupils equal, mouth negative Neck: No JVD Heart: RRR with no murmurs Lungs: Clear Abdomen: Soft, nontender Extremities: No edema Neuro: Speech appears good, no motor or sensory deficit. Slight difficulty with finger to nose testing with his left hand A/P Assessment and Plan Assessment: --Right thalamic infarct --Hypertension with BP still high --Uncontrolled type 2 diabetes mellitus --Hyperlipidemia Plan: Add HCTZ 25mg daily for better blood pressure control. I increased her Glimepiride dose. 2D echo still pending. Hopefully blood pressure e and blood sugar better tomorrow. Continue Aspirin 325mg daily Brock Ryan MD March 07, 2018 15:43
[2018-03-07] MEDS: HYDROCHLOROTHIAZIDE 25 MG TAB PO SCH (16:38)
[2018-03-07] MEDS: GLIMEPIRIDE 4 MG TAB PO SCH (16:38)
[2018-03-07] MEDS: PRAVASTATIN SOD 40 MG TAB PO SCH (20:46)
[2018-03-07] MEDS: INSULIN DETEMIR SQ SCH (21:00)
[2018-03-08 00:30] VITALS: PULSE 64
[2018-03-08 04:18] VITALS: BP 164/91; PULSE 67; RESP 18; TEMP 97; O2SAT 97
[2018-03-08] MEDS: GLIMEPIRIDE 4 MG TAB PO SCH ×2 (06:22→16:22)
[2018-03-08 07:30] VITALS: PULSE 68
--- NOTE | 2018-03-08 08:04 | HHI.PR ---
Subjective Remarks Feeling better. Strength improved. Walking slowly in room without assistive device. I have advised her to use walker as directed. Sugars still a bit high and I have discussed the importance of compliance with diabetic diet. It was noted that she had a strawberry crush drink in the room this morning Objective Vitals Vital Signs Date Time Temp Pulse Resp B/P (MAP) Pulse Ox O2 Delivery O2 Flow Rate FiO2 03/08/18 04:18 97.0 67 18 164/91 (115) 97 03/08/18 00:30 64 03/07/18 22:49 96.4 73 20 166/95 (118) 99 03/07/18 21:00 76 03/07/18 19:37 97.7 84 20 180/97 (124) 100 03/07/18 16:00 98.6 79 19 161/77 (105) 95 03/07/18 12:00 97.5 89 20 185/93 (123) 96 03/07/18 08:00 97.6 86 20 199/95 (129) 97 GENERAL: Obese, no acute distress, cooperative. Slight dysarthria noted. SKIN: Warm and dry. HEAD: Normocephalic. EYES: No scleral icterus. No injection or drainage. Extraocular motion is intact. NECK: Supple, trachea midline. No JVD or lymphadenopathy. CARDIOVASCULAR: Regular rate and rhythm without murmurs, gallops, or rubs. RESPIRATORY: Breath sounds equal bilaterally. No accessory muscle use. GASTROINTESTINAL: Abdomen soft, non-tender, nondistended. Bowel sounds normal. MUSCULOSKELETAL: No cyanosis, or edema. Strength 5 out of 5 4 extremities. Slight dysmetria with left upper extremity. BACK: No CVA tenderness. Result Diagram: 03/06/18 0105 03/07/18 0611 Imaging Last Impressions Neck CTA 03/06/18 0000 Signed Impressions: Service Date/Time: Tuesday, March 06, 2018 02:52 - CONCLUSION: Negative study with no evidence of carotid occlusion. Tima Judge MD Head Magnetic Resonance Angiography 03/06/18 0000 Signed Impressions: Service Date/Time: Tuesday, March 06, 2018 08:25 - CONCLUSION: Normal examination. Gema Kumar MD Head CT 03/06/18 0000 Signed Impressions: Service Date/Time: Tuesday, March 06, 2018 01:12 - CONCLUSION: Negative noncontrast head CT. Tima Judge MD Brain MRI 03/06/18 0000 Signed Impressions: Service Date/Time: Tuesday, March 06, 2018 08:25 - CONCLUSION: Focal area for strict diffusion involving the right pelvis consistent with acute infarct. The scattered areas of increased T2 signal identified throughout the remainder of the brain are nonspecific and not associated with restricted diffusion. These likely reflect chronic small vessel ischemic change.. Gema Kumar MD Urinary Catheter: No Vascular Central Line Catheter: No A/P Problem List: (1) Right thalamic infarction ICD Codes: I63.9 - Cerebral infarction, unspecified Status: Acute Plan: Clinically appears much improved. Still slight incoordination with left hand. I have encouraged her to walk with assistive device as directed to avoid falls. She has been started on aspirin. Echo pending. Review of telemetry reveals primarily sinus rhythm with some occasional PVCs. There was a 4 beat run of PVCs this morning just after midnight appears. Patient remained asymptomatic (2) Uncontrolled type 2 diabetes mellitus ICD Codes: E11.65 - Type 2 diabetes mellitus with hyperglycemia Status: Chronic Plan: Patient has not been compliant with diabetic diet and medications as an outpatient. I have strongly encouraged her to be compliant and advised regarding dangers of noncompliance. We will continue medications and adjust as outpatient as appropriate. (3) Hyperlipidemia ICD Codes: E78.5 - Hyperlipidemia, unspecified Status: Chronic Plan: Fair control. Continue medication. (4) Hypertension ICD Codes: I10 - Essential (primary) hypertension Status: Chronic Plan: Blood pressure still somewhat elevated but overall much improved. Continue medications. Adjust as outpatient. Discharge Planning Hopefully discharge home later today. Echo is still pending. Problem Qualifiers (1) Uncontrolled type 2 diabetes mellitus: (2) Hypertension: Qualified Codes: I10 - Essential (primary) hypertension Kaushal Aranda MD PhD March 08, 2018 08:04
[2018-03-08] MEDS ORDERED: AMLO5 PO (08:09)
[2018-03-08] MEDS ORDERED: AMAR4TAB PO (08:09)
[2018-03-08] MEDS ORDERED: HYDR25TA5 PO (08:09)
[2018-03-08] MEDS ORDERED: INSU1INJ5 SQ (08:09)
[2018-03-08] MEDS ORDERED: ASPI325T33 PO (08:09)
[2018-03-08] MEDS ORDERED: WALKER WHEELS/F1 MIS (08:12)
--- NOTE | 2018-03-08 08:16 | HHI.DS ---
Discharge Summary Admission Date March 06, 2018 at 10:49 Admitting Diagnosis TIA (1) Right thalamic infarction Diagnosis: Principal ICD Codes: I63.9 - Cerebral infarction, unspecified Status: Acute (2) Uncontrolled type 2 diabetes mellitus Diagnosis: Secondary ICD Codes: E11.65 - Type 2 diabetes mellitus with hyperglycemia Status: Chronic (3) Hyperlipidemia Diagnosis: Secondary ICD Codes: E78.5 - Hyperlipidemia, unspecified Status: Chronic (4) Hypertension Diagnosis: Secondary ICD Codes: I10 - Essential (primary) hypertension Status: Chronic Consultants Dr. Vazquez-neurology Brief History This is a 62-year-old black female who, last night, woke up. She tried to stand, but she felt like her legs were a little weak. She had trouble walking, felt that her balance was off when she got up to go the bathroom. She was making some slurring of her words, and she states to me that she felt like her left arm was not as coordinated, as well. She had no confusion, no double vision or blurred vision, no trouble with any numbness or tingling in her arms and legs. She states that her speech is back to normal now. She has gotten up and walked to the bathroom in the ED and states that was better than it was earlier in the night. When she came to the ED, her blood pressure was quite elevated; it was up as high as 234/106 and 218/121. Her blood sugar was quite elevated at 522. She has been given insulin and her blood sugar has come down. Her blood pressure has come down as well after labetalol, her most recent blood pressure reading being 157/93. The neurologist was consulted by the ED physician and recommended she be put on aspirin and also order MRI studies. She had a CT brain scan that was negative on admission and a CTA of the neck that showed no acute process. She is admitted for further evaluation, as mentioned CBC/BMP: 03/06/18 0105 03/07/18 0611 Significant Findings Laboratory Tests Test 03/06/18 01:05 03/06/18 01:35 03/06/18 02:35 03/06/18 06:05 Mean Corpuscular Hemoglobin 26.3 PG (27.0-34.0) Mean Platelet Volume 11.5 FL (7.0-11.0) Basophils (%) (Auto) 2.2 % (0.0-2.0) Random Glucose 522 MG/DL (74-106) 117 MG/DL (74-106) Total Protein 8.7 GM/DL (6.4-8.2) Albumin 2.8 GM/DL (3.4-5.0) Alkaline Phosphatase 128 U/L (45-117) Sodium Level 134 MEQ/L (136-145) Estimat Glomerular Filtration Rate 68 ML/MIN (>89) Acetaminophen Level LESS THAN 2.0 MCG/ML Blood Urea Nitrogen 6 MG/DL (7-18) Potassium Level 3.2 MEQ/L (3.5-5.1) Chloride Level 108 MEQ/L (98-107) Anion Gap 4 MEQ/L (5-15) Hemoglobin A1c 12.4 % (4.3-6.0) HDL Cholesterol 65.9 MG/DL (40.0-60.0) Test 03/07/18 06:11 Random Glucose 166 MG/DL (74-106) Chloride Level 108 MEQ/L (98-107) Imaging Last 72 hours Impressions Neck CTA 03/06/18 0000 Signed Impressions: Service Date/Time: Tuesday, March 06, 2018 02:52 - CONCLUSION: Negative study with no evidence of carotid occlusion. Tima Judge MD Head Magnetic Resonance Angiography 03/06/18 0000 Signed Impressions: Service Date/Time: Tuesday, March 06, 2018 08:25 - CONCLUSION: Normal examination. Gema Kumar MD Head CT 03/06/18 0000 Signed Impressions: Service Date/Time: Tuesday, March 06, 2018 01:12 - CONCLUSION: Negative noncontrast head CT. Tima Judge MD Brain MRI 03/06/18 0000 Signed Impressions: Service Date/Time: Tuesday, March 06, 2018 08:25 - CONCLUSION: Focal area for strict diffusion involving the right pelvis consistent with acute infarct. The scattered areas of increased T2 signal identified throughout the remainder of the brain are nonspecific and not associated with restricted diffusion. These likely reflect chronic small vessel ischemic change.. Gema Kumar MD Hospital Course Patient admitted for difficulty with ambulation and was discovered to have a right thalamic infarct on MRI. Neurology and physical therapy were consulted. Patient was placed on telemetry and started on aspirin she was not on any anticoagulant coming in. She progressed well and vital signs remained relatively stable however her blood pressure was somewhat difficult to control. Echo overall OK. Blood pressure was allowed to run a bit high for the first day or so the medications were adjusted and at the time of discharge her pressures in the 160s over 90s range. Of course we would like her lower the less than 140/90 in the future. Blood pressure medications can be fine-tuned as outpatient. Her blood sugars were also an issue and she had sugars in the 500s on arrival. Her A1c is above 12 and she has not been compliant with her diet and medication regimen at home. I had a long discussion regarding the importance of controlling her sugars and being compliant with medication/diet recommendations. Hopefully she will be more compliant in the future. I have adjusted her Levemir to 35 units twice a day rather than 60 units once a day. Glimepiride 4 mg twice a day is also been added to her regimen. We are not resuming metformin if she had a lot of diarrhea on this in the past. Giving her habitus, she may benefit from an SGLT2 inhibitor in the future. Pt Condition on Discharge: Stable Discharge Disposition: Disch w/ Home Health Serv Discharge Instructions DIET: Follow Instructions for: Diabetic Diet Speech Therapy-Diet Recommends: Regular Activities you can perform: Weight Bearing as Joni Other Activity Instructions: Observe fall precautions. Follow up Referrals: Neurology PCP Follow-up New Medications: Walker with Front Wheels (Walker with Front Wheels) 1 Mis Mis EA .XX DIRECTED for stroke, #1 0 Refills Amlodipine (Norvasc) 5 Mg Tab 5 MG PO BID for htn, #[address] (Aspirin EC) 325 Mg Tabdr 81 MG PO DAILY for Stroke Prevention, #31 TAB Glimepiride (Amaryl) 4 Mg Tab 4 MG PO BIDAC for DM, #62 TAB Take with breakfast or the first main meal Hydrochlorothiazide (Hydrochlorothiazide) 25 Mg Tab 25 MG PO DAILY for htn, #31 TAB Changed Medications: Insulin Detemir Inj (Levemir Flextouch Pen Inj) 300 unit/3 ML Pen 35 UNITS SQ BID for Blood Sugar Management, #2 PEN 0 Refills (Changed from: 60 UNITS; DAILY) Continued Medications: Benazepril (Benazepril) 10 Mg Tab 10 MG PO DAILY for Blood Pressure Management, #30 TAB 0 Refills Simvastatin (Simvastatin) 20 Mg Tab 20 MG PO HS for Cholesterol Management, #30 TAB 0 Refills Discontinued Medications: Glipizide (Glipizide) 10 Mg Tab 10 MG PO DAILY for Blood Sugar Management, #30 TAB 0 Refills Take 30 minutes before a meal Kaushal Aranda MD PhD March 08, 2018 08:16
--- NOTE | 2018-03-08 08:18 | HHI.FF ---
Face to Face Verification Diagnosis: (1) Right thalamic infarction (2) Uncontrolled type 2 diabetes mellitus Physical Therapy Order: Evaluate and Treat, Improve ambulation, Strength and gait training Occupational Therapy Order: Fine motor coordination Home Health Nursing Order: Medical education Diabetic education Nursing assessment with vital signs I have seen patient Nena Johnson on 03/08/18. My clinical findings support the need for the requested home health care services because: Ltd mobility - disease progression Med compliance is questionable Limited ability to care for self High risk of falls I certify that my clinical findings support that this patient is homebound because: Unsteady gait/balance Unsafe to leave home unassisted Kaushal Aranda MD PhD March 08, 2018 08:18
[2018-03-08 08:50] VITALS: BP 168/101; PULSE 67; RESP 18; TEMP 96.2; O2SAT 97
[2018-03-08] MEDS: ASPIRIN EC 325 MG TABEC PO SCH (09:35)
[2018-03-08] MEDS: HYDROCHLOROTHIAZIDE 25 MG TAB PO SCH (09:36)
[2018-03-08] MEDS: LISINOPRIL 20 MG TAB PO SCH (09:36)
[2018-03-08] MEDS: amLODIPine BESYLATE 5 MG TAB PO SCH (09:36)
[2018-03-08 13:07] VITALS: BP 169/88; PULSE 76; RESP 14; TEMP 96.2; O2SAT 94
[2018-03-08 17:02] VITALS: BP 151/98; PULSE 70; RESP 16; TEMP 96.2; O2SAT 98
--- NOTE | 2018-03-08 17:31 | ECHRPT ---
Indication: TIA CONCLUSIONS Normal left ventricular size. Moderate concentric left ventricular hypertrophy. The left ventricular systolic function is normal with an estimated ejection fraction in the range of 55-60%. [id number] mitral valve regurgitation. Aortic valve sclerosis is present. There is trace tricuspid valve regurgitation. The estimated pulmonary arterial pressure is 30.8 mmHg. BP: 169 / 88 HR: 76 Rhythm: Sinus MEASUREMENTS (Male / Female) Normal Values Technical Quality:Fair 2D ECHO LV Diastolic Diameter PLAX 3.8 cm 4.2 - 5.9 / 3.9 - 5.3 cm LV Systolic Diameter PLAX 2.8 cm IVS Diastolic Thickness 1.5 cm 0.6 - 1.0 / 0.6 - 0.9 cm LVPW Diastolic Thickness 1.5 cm 0.6 - 1.0 / 0.6 - 0.9 cm LV Relative Wall Thickness 0.8 RV Internal Dim ED PLAX 2.3 cm LVOT Diameter 2.1 cm Aortic Root Diameter 3.2 cm LA Systolic Diameter LX 3.6 cm 3.0 - 4.0 / 2.7 - 3.8 cm M-MODE AV Cusp Separation MM 1.9 cm DOPPLER AV Peak Velocity 171.0 cm/s AV Peak Gradient 11.7 mmHg AV Mean Gradient 6.0 mmHg AV Velocity Time Integral 27.3 cm LVOT Peak Velocity 72.9 cm/s LVOT Peak Gradient 2.1 mmHg LVOT Velocity Time Integral 13.1 cm AV Area Cont Eq vti 1.7 cm AV Area Cont Eq pk 1.5 cm Mitral E Point Velocity 64.2 cm/s Mitral A Point Velocity 95.8 cm/s Mitral E to A Ratio 0.7 LV E' Lateral Velocity 5.6 cm/s Mitral E to LV E' Lateral Ratio 11.5 LV E' Septal Velocity 4.8 cm/s Mitral E to LV E' Septal Ratio 13.4 TR Peak Velocity 228.0 cm/s TR Peak Gradient 20.8 mmHg Right Atrial Pressure 10.0 mmHg Pulmonary Artery Systolic Pressu 30.8 mmHg Right Ventricular Systolic Press 30.8 mmHg PV Peak Velocity 53.4 cm/s PV Peak Gradient 1.1 mmHg FINDINGS LEFT VENTRICLE Normal left ventricular size. Moderate concentric left ventricular hypertrophy. The left ventricular systolic function is normal with an estimated ejection fraction in the range of 55-60%. RIGHT VENTRICLE Normal right ventricular size and systolic function. LEFT ATRIUM The left atrial size is normal. RIGHT ATRIUM The right atrial size is normal. ATRIAL SEPTUM No atrial level shunt is demonstrated by color flow Doppler interrogation. AORTA The aortic root and proximal ascending aorta are normal in size on limited imaging. MITRAL VALVE [id number] mitral valve regurgitation. AORTIC VALVE Aortic valve sclerosis is present. TRICUSPID VALVE There is trace tricuspid valve regurgitation. The estimated pulmonary arterial pressure is 30.8 mmHg. PULMONARY VALVE No pulmonary valve regurgitation or stenosis. VESSELS The inferior vena cava was not well visualized. PERICARDIUM No pericardial effusion. Jean-Claude Carranza MD, FACC, [facility] [place] (Electronically Signed) Final Date:08 Mar 2018 17:30
== END 2018-03-08 18:58 | disposition home health service (06) | DRG 66 ==
LOC: PHED 00:39 → PHEDA 02:54 → PHEDH 06:00 → PH3A 08:40 → OBSVTOIN 10:49
PROVIDERS: ADMIT Family Medicine; ATTEND Family Medicine
DX: I63.9 Cerebral infarction, unspecified (principal); E11.65 Type 2 diabetes mellitus with hyperglycemia; I10 Essential (primary) hypertension; R47.81 Slurred speech; R26.2 Difficulty in walking, not elsewhere classified; E78.5 Hyperlipidemia, unspecified; Z91.19 Patient's noncompliance with other medical treatment and regimen; Z91.14 Patient's other noncompliance with medication regimen; Z90.710 Acquired absence of both cervix and uterus; Z79.4 Long term (current) use of insulin
CPT/HCPCS: 70450; 70498; 70544; 70551; 80048; 80053; 80061; 80307; 82010; 82948; 83036; 83690; 85025; 93306; G8987-GP; G8988-GP; J0360; J1815; J7030; Q9967

== ENCOUNTER 2018-07-26 10:32 | Inpatient (IN) ==
[2018-07-26] MEDS: Sod Chloride 0.9% Inj 1,000 ML IV.SIG SCH (11:45)
--- NOTE | 2018-07-26 12:00 | XR ---
EXAM DATE: 07/26/2018 11:28 AM EDT AGE/SEX: 62 years / Female INDICATIONS: Fever CLINICAL DATA: This is the patient's initial encounter. Patient reports that signs and symptoms have been present for 1 day and indicates a pain score of 0/10. MEDICAL/SURGICAL HISTORY: Diabetes mellitus type II. . COMPARISON: [facility], CHEST SINGLE AP, 01/30/2014. . FINDINGS: A single AP view of the chest demonstrates the lungs to be symmetrically aerated without evidence of mass, infiltrate or effusion. The cardiomediastinal contours are unremarkable. Osseous structures a re intact. CONCLUSION: Negative for acute process Electronically signed by: Otf Neville MD 07/26/2018 11:58 AM EDT
[2018-07-26 12:03] LABS: Chloride 102 meq/L (98-107); Sodium 132 meq/L (136-145)
[2018-07-26 12:05] LABS: Hematocrit 30.6 % (35.0-46.0); Hemoglobin 10.4 gm/dL (11.6-15.3); Mean Corpuscular Hemoglobin 28.9 pg (27.0-34.0); Mean Corpuscular Volume 84.9 fL (80.0-100.0); Mean Platelet Volume 10.4 fL (7.0-11.0); Platelet Count 122 th/mm3 (150-450); Red Cell Distribution Width 12.6 % (11.6-17.2); White Blood Count 3.5 th/mm3 (4.0-11.0)
[2018-07-26 12:07] LABS: Albumin 3.2 g/dL (3.4-5.0); Anion Gap 15 meq/L (5-15); Blood Urea Nitrogen 65 mg/dL (7-18); Calcium 8.6 mg/dL (8.5-10.1); Carbon Dioxide 14.7 meq/L (21.0-32.0); Glucose,Random 164 mg/dL (74-106)
[2018-07-26] MEDS ORDERED: Acetaminophen 325 MG Tablet PO ONE (12:09)
[2018-07-26 12:10] LABS: Alanine Aminotransferase 44 U/L (10-53); Aspartate Aminotransferase 41 U/L (15-37); Glomerular Filtration Rate 13 mL/min (>89)
[2018-07-26 12:13] LABS: Alkaline Phosphatase 78 U/L (45-117)
[2018-07-26 12:22] LABS: Metamyelocytes 1 % (0-1); Monocytes 9 % (0-8)
[2018-07-26 12:23] LABS: Lymphocytes 33 % (9-44)
[2018-07-26 13:00] LABS: Clarity,Urine Clear (Clear); Color,Urine Yellow (Yellw/Straw); Glucose,Urine (UA) Negative (Negative); Leukocyte Esterase,Urine Negative (Negative); Nitrite,Urine Negative (Negative); Urobilinogen,Urine 0.2 mg/dL (Less than 2)
[2018-07-26 13:06] LABS: Bilirubin,Urine Negative (Negative); Ictotest,Urine Negative (Negative)
--- NOTE | 2018-07-26 13:09 | ED ---
HPI General Chief complaint: Weakness Stated complaint: Mouth taste funny has not eaten [id number] Time Seen by Provider: 07/26/18 11:27 History of Present Illness HPI narrative: This is a 62-year-old female with a history of CVA, diabetes mellitus, hypertension, hyperlipidemia, who presents today with aunt of generalized weakness. Patient states that she is been generally weak over the last several weeks to several months. She states she had a stroke in the late spring and since then she has been not feeling well. She reports that she has had poor appetite secondary to bad taste in her mouth. She states she was seen by an ENT physician who diagnosed her with bacterial pharyngitis. She states that she was just recently started on antibiotics despite seen the ENT physician several weeks ago. There is no reported fever by patient although she has fevers here. There is no reported chills. There is no reported URI symptoms. There is no reported UTI symptoms. There is no abdominal pain. The patient states that she has not been eating solids for several weeks to months. She is only drinking liquids. She reports normal urine output. Related Data Home Medications Medication Instructions Recorded Confirmed aspirin [Aspir-81] 81 mg PO DAILY 07/26/18 07/26/18 benazepril 10 mg PO DAILY 07/26/18 07/26/18 metformin 500 mg PO DAILY 07/26/18 07/26/18 simvastatin 20 mg PO QPM 07/26/18 07/26/18 sulfamethoxazole-trimethoprim 1 tab PO BID 07/26/18 07/26/18 [Bactrim DS] Allergies Allergy/AdvReac Type Severity Reaction Status Date / Time No Known Allergies Allergy Uncoded 07/30/17 07:34 Review of Systems ROS: all other systems reviewed are negative Constitutional Denies chills and Reports fever(s) (Denies but has fevers here.) Eyes Reports system reviewed and no additional complaints, except as docu ENT Denies dysphagia, Denies dizziness and Reports sore throat Cardiovascular Denies chest pain and Denies dyspnea Respiratory Denies chest congestion, Denies cough and Denies dyspnea Gastrointestinal Denies abdominal pain, Reports constipation, Denies nausea and Denies vomiting Genitourinary Denies urinary frequency and Denies dysuria Musculoskeletal Reports muscle weakness (Generalized diffuse), Denies numbness and Denies tingling Neurologic Denies dizziness, Denies headache(s) and Reports weakness (Generalized) [facility] Medical History Medical History Diabetes (Acute) Hypertension (Acute) High cholesterol (Acute) history (Acute) CVA (cerebral vascular accident) (Acute) TIA (transient ischemic attack) (Acute) Surgical History Surgical History History of partial hysterectomy (Acute) Hx of breast augmentation (Acute) Family History Family History Mother Diabetes Father Diabetes Father No problems noted. Social History Social History Substance History: No History of Abuse Second Hand Smoke Exposure: No Smoking Status: Never smoker How Often Do You Have a Drink Containing Alcohol: Never Recent Travel in [facility] within the Last 8 Weeks: No Recent Out of Country Travel within the Last 8 Weeks: No Immunization History Tetanus Immunization: Unsure Hx Influenza Vaccine This Season: No Exam Narrative Exam Narrative: GENERAL: Well-developed well-nourished ill-appearing female in no acute respiratory distress. SKIN: Focused skin assessment warm/dry. HEAD: Atraumatic. Normocephalic. EYES: No scleral icterus. No injection or drainage. ENT: No nasal bleeding or discharge. Mucous membranes pink and moist. No lymphadenopathy. NECK: Trachea midline. Supple. CARDIOVASCULAR: Regular rate and rhythm. No murmur appreciated. RESPIRATORY: No accessory muscle use. Clear to auscultation. Breath sounds equal bilaterally. GASTROINTESTINAL: Abdomen soft, non-tender, nondistended. Hepatic and splenic margins not palpable. MUSCULOSKELETAL: No obvious deformities. No clubbing. No cyanosis. No edema. NEUROLOGICAL: Awake and alert. No obvious cranial nerve deficits. Motor grossly within normal limits. Normal speech. Course Initial Documented Vital Signs Temperature 101.6 F H 07/26/18 10:54 Pulse Rate 115 H 07/26/18 10:54 Respiratory Rate 20 07/26/18 10:54 Blood Pressure 82/50 L 07/26/18 10:54 Pulse Oximetry 98 07/26/18 10:54 Last Documented Vital Signs Temperature 98 F 07/27/18 04:00 Pulse Rate 74 07/27/18 06:00 Respiratory Rate 14 07/27/18 06:00 Blood Pressure 102/57 L 07/27/18 04:00 Pulse Oximetry 97 07/26/18 20:00 Medical Decision Making MDM Narrative Medical decision making narrative: Is a 62-year-old female with a history of CVA , hypertension, diabetes mellitus, presents here with complaints of weakness. Patient also reports a funny taste in her mouth and not being able to eat food because of that. Patient states she is lost 25 pounds in the last several months. She reports this was not intentional. The patient appears to have acute kidney injury with a creatinine of above 3. Patient also has leukopenia. Case was discussed with Dr. Kaushal Aranda and the patient will be admitted to the hospital. She has been given 2 L of IV fluid which is brought her blood pressure from the 90s just above 100. She did have an another dip and was re- bolused. The patient is also been started on Zosyn for her fever. We are still on clear of the source. Medical Screen Exam Complete: Yes Emergency Medical Condition: Yes Differential Diagnosis Differential Diagnosis: Metabolic derangement versus UTI versus pneumonia Lab Data Result diagrams: 07/27/18 04:20 07/27/18 04:20 Lab Results 07/26/18 07/26/18 07/26/18 Range/Units 11:30 11:30 11:40 CBC w Diff Slide review pending WBC 3.5 L (4.0-11.0) th/mm3 RBC 3.60 L (4.00-5.30) mil/mm3 Hgb 10.4 L (11.6-15.3) gm/dL Hct 30.6 L (35.0-46.0) % MCV 84.9 (80.0-100.0) fL MCH 28.9 (27.0-34.0) pg MCHC 34.0 (32.0-36.0) % RDW 12.6 (11.6-17.2) % Plt Count 122 L (150-450) th/mm3 MPV 10.4 (7.0-11.0) fL Neut % (Auto) (16.0-70.0) % Lymph % (Auto) (9.0-44.0) % Charles % (Auto) (0.0-8.0) % Eos % (Auto) (0.0-4.0) % Baso % (Auto) (0.0-2.0) % Neut # (Auto) (1.8-7.7) th/mm3 Lymph # (Auto) (1.0-4.8) th/mm3 Charles # (Auto) (0.0-0.9) th/mm3 Eos # (Auto) (0.0-0.4) th/mm3 Baso # (Auto) (0.0-0.2) th/mm3 WBC Differential Manual diff final Seg Neuts % (Manual) 45 (16-70) % Band Neuts % (Manual) 12 H (0-6) % Lymphocytes % (Manual) 33 (9-44) % Monocytes % (Manual) 9 H (0-8) % Metamyelocytes % (Man) 1 (0-1) % Abs Neuts (Manual) 2.0 (1.8-7.7) th/mm3 Differential Comment . Retic Count (0.4-3.0) % Absolute Retic (20.0-150.0) mil/L Haptoglobin (30-200) mg/dL Sodium 132 L (136-145) meq/L Potassium 5.0 (3.5-5.1) meq/L Chloride 102 (98-107) meq/L Carbon Dioxide 14.7 L (21.0-32.0) meq/L Anion Gap 15 (5-15) meq/L BUN 65 H (7-18) mg/dL Creatinine 4.10 H (0.50-1.00) mg/dL Estimated GFR 13 L (>89) mL/min POC Glucose (68-110) mg/dl Random Glucose 164 H (74-106) mg/dL Lactic Acid 1.0 (0.4-2.0) mmol/L Calcium 8.6 (8.5-10.1) mg/dL Total Bilirubin 0.2 (0.2-1.0) mg/dL AST 41 H (15-37) U/L ALT 44 (10-53) U/L Alkaline Phosphatase 78 (45-117) U/L Lactate Dehydrogenase (84-246) U/L Total Protein 9.0 H (6.4-8.2) g/dL Albumin 3.2 L (3.4-5.0) g/dL Vitamin B12 (193-986) pg/mL Folate (3.1-17.5) ng/mL Urine Color (Yellw/Straw) Urine Clarity (Clear) Urine pH (5.0-8.5) Ur Specific [place] (1.002-1.035) Urine Protein (Neg-Trace) mg/dL Urine Glucose (UA) (Negative) mg/dL Urine Ketones (Negative) mg/dL Urine Occult Blood (Negative) Urine Nitrate (Negative) Urine Bilirubin (Negative) Urine Ictotest (Negative) Urine Urobilinogen (Less than 2) mg/dL Ur Leukocyte Esterase (Negative) Urine WBC (0-5) /hpf Ur Squamous Epith Cells (0-5) /hpf Urine Bacteria (None) /hpf Hyaline Casts (0-3) /lpf Micro UA Comment Ur Microscopic Review Urine Culture Comments Nasal Screen MRSA (PCR) (Negative) HIV 1&2 Ab/P24 Ag 4thGn (Nonreactive) 07/26/18 07/26/18 07/26/18 Range/Units 12:40 17:45 17:45 CBC w Diff WBC (4.0-11.0) th/mm3 RBC (4.00-5.30) mil/mm3 Hgb (11.6-15.3) gm/dL Hct (35.0-46.0) % MCV (80.0-100.0) fL MCH (27.0-34.0) pg MCHC (32.0-36.0) % RDW (11.6-17.2) % Plt Count (150-450) th/mm3 MPV (7.0-11.0) fL Neut % (Auto) (16.0-70.0) % Lymph % (Auto) (9.0-44.0) % Charles % (Auto) (0.0-8.0) % Eos % (Auto) (0.0-4.0) % Baso % (Auto) (0.0-2.0) % Neut # (Auto) (1.8-7.7) th/mm3 Lymph # (Auto) (1.0-4.8) th/mm3 Charles # (Auto) (0.0-0.9) th/mm3 Eos # (Auto) (0.0-0.4) th/mm3 Baso # (Auto) (0.0-0.2) th/mm3 WBC Differential Seg Neuts % (Manual) (16-70) % Band Neuts % (Manual) (0-6) % Lymphocytes % (Manual) (9-44) % Monocytes % (Manual) (0-8) % Metamyelocytes % (Man) (0-1) % Abs Neuts (Manual) (1.8-7.7) th/mm3 Differential Comment Retic Count (0.4-3.0) % Absolute Retic (20.0-150.0) mil/L Haptoglobin (30-200) mg/dL Sodium 134 L (136-145) meq/L Potassium 5.5 H (3.5-5.1) meq/L Chloride 108 H (98-107) meq/L Carbon Dioxide 14.7 L (21.0-32.0) meq/L Anion Gap 11 (5-15) meq/L BUN 61 H (7-18) mg/dL Creatinine 3.70 H (0.50-1.00) mg/dL Estimated GFR 15 L (>89) mL/min POC Glucose (68-110) mg/dl Random Glucose 158 H (74-106) mg/dL Lactic Acid (0.4-2.0) mmol/L Calcium 7.9 L (8.5-10.1) mg/dL Total Bilirubin (0.2-1.0) mg/dL AST (15-37) U/L ALT (10-53) U/L Alkaline Phosphatase (45-117) U/L Lactate Dehydrogenase (84-246) U/L Total Protein (6.4-8.2) g/dL Albumin (3.4-5.0) g/dL Vitamin B12 (193-986) pg/mL Folate (3.1-17.5) ng/mL Urine Color Yellow (Yellw/Straw) Urine Clarity Clear (Clear) Urine pH 6.0 (5.0-8.5) Ur Specific [place] 1.020 (1.002-1.035) Urine Protein Trace (Neg-Trace) mg/dL Urine Glucose (UA) Negative (Negative) mg/dL Urine Ketones Trace H (Negative) mg/dL Urine Occult Blood Negative (Negative) Urine Nitrate Negative (Negative) Urine Bilirubin Negative (Negative) Urine Ictotest Negative (Negative) Urine Urobilinogen 0.2 (Less than 2) mg/dL Ur Leukocyte Esterase Negative (Negative) Urine WBC 0-5 (0-5) /hpf Ur Squamous Epith Cells 0-5 (0-5) /hpf Urine Bacteria Moderate H (None) /hpf Hyaline Casts 4-10 H (0-3) /lpf Micro UA Comment Culture indicated Ur Microscopic Review Microscopic reviewed Urine Culture Comments Culture indicated Nasal Screen MRSA (PCR) (Negative) HIV 1&2 Ab/P24 Ag 4thGn Nonreactive (Nonreactive) 07/26/18 07/26/18 07/26/18 Range/Units 17:55 18:10 21:05 CBC w Diff WBC (4.0-11.0) th/mm3 RBC (4.00-5.30) mil/mm3 Hgb (11.6-15.3) gm/dL Hct (35.0-46.0) % MCV (80.0-100.0) fL MCH (27.0-34.0) pg MCHC (32.0-36.0) % RDW (11.6-17.2) % Plt Count (150-450) th/mm3 MPV (7.0-11.0) fL Neut % (Auto) (16.0-70.0) % Lymph % (Auto) (9.0-44.0) % Charles % (Auto) (0.0-8.0) % Eos % (Auto) (0.0-4.0) % Baso % (Auto) (0.0-2.0) % Neut # (Auto) (1.8-7.7) th/mm3 Lymph # (Auto) (1.0-4.8) th/mm3 Charles # (Auto) (0.0-0.9) th/mm3 Eos # (Auto) (0.0-0.4) th/mm3 Baso # (Auto) (0.0-0.2) th/mm3 WBC Differential Seg Neuts % (Manual) (16-70) % Band Neuts % (Manual) (0-6) % Lymphocytes % (Manual) (9-44) % Monocytes % (Manual) (0-8) % Metamyelocytes % (Man) (0-1) % Abs Neuts (Manual) (1.8-7.7) th/mm3 Differential Comment Retic Count (0.4-3.0) % Absolute Retic (20.0-150.0) mil/L Haptoglobin (30-200) mg/dL Sodium (136-145) meq/L Potassium (3.5-5.1) meq/L Chloride (98-107) meq/L Carbon Dioxide (21.0-32.0) meq/L Anion Gap (5-15) meq/L BUN (7-18) mg/dL Creatinine (0.50-1.00) mg/dL Estimated GFR (>89) mL/min POC Glucose 168 H 200 H (68-110) mg/dl Random Glucose (74-106) mg/dL Lactic Acid (0.4-2.0) mmol/L Calcium (8.5-10.1) mg/dL Total Bilirubin (0.2-1.0) mg/dL AST (15-37) U/L ALT (10-53) U/L Alkaline Phosphatase (45-117) U/L Lactate Dehydrogenase (84-246) U/L Total Protein (6.4-8.2) g/dL Albumin (3.4-5.0) g/dL Vitamin B12 (193-986) pg/mL Folate (3.1-17.5) ng/mL Urine Color (Yellw/Straw) Urine Clarity (Clear) Urine pH (5.0-8.5) Ur Specific [place] (1.002-1.035) Urine Protein (Neg-Trace) mg/dL Urine Glucose (UA) (Negative) mg/dL Urine Ketones (Negative) mg/dL Urine Occult Blood (Negative) Urine Nitrate (Negative) Urine Bilirubin (Negative) Urine Ictotest (Negative) Urine Urobilinogen (Less than 2) mg/dL Ur Leukocyte Esterase (Negative) Urine WBC (0-5) /hpf Ur Squamous Epith Cells (0-5) /hpf Urine Bacteria (None) /hpf Hyaline Casts (0-3) /lpf Micro UA Comment Ur Microscopic Review Urine Culture Comments Nasal Screen MRSA (PCR) Not detected (Negative) HIV 1&2 Ab/P24 Ag 4thGn (Nonreactive) 07/27/18 07/27/18 07/27/18 Range/Units 04:20 04:20 04:20 CBC w Diff Auto diff final WBC 2.1 L (4.0-11.0) th/mm3 RBC 3.06 L (4.00-5.30) mil/mm3 Hgb 8.4 L D (11.6-15.3) gm/dL Hct 26.4 L (35.0-46.0) % MCV 86.3 (80.0-100.0) fL MCH 27.6 (27.0-34.0) pg MCHC 31.9 L (32.0-36.0) % RDW 12.8 (11.6-17.2) % Plt Count 112 L (150-450) th/mm3 MPV 9.5 (7.0-11.0) fL Neut % (Auto) 78.2 H (16.0-70.0) % Lymph % (Auto) 19.5 (9.0-44.0) % Charles % (Auto) 2.0 (0.0-8.0) % Eos % (Auto) 0.1 (0.0-4.0) % Baso % (Auto) 0.2 (0.0-2.0) % Neut # (Auto) 1.7 L (1.8-7.7) th/mm3 Lymph # (Auto) 0.4 L (1.0-4.8) th/mm3 Charles # (Auto) 0.0 (0.0-0.9) th/mm3 Eos # (Auto) 0.0 (0.0-0.4) th/mm3 Baso # (Auto) 0.0 (0.0-0.2) th/mm3 WBC Differential . Seg Neuts % (Manual) (16-70) % Band Neuts % (Manual) (0-6) % Lymphocytes % (Manual) (9-44) % Monocytes % (Manual) (0-8) % Metamyelocytes % (Man) (0-1) % Abs Neuts (Manual) (1.8-7.7) th/mm3 Differential Comment . Retic Count 1.3 (0.4-3.0) % Absolute Retic 38.9 (20.0-150.0) mil/L Haptoglobin (30-200) mg/dL Sodium 138 (136-145) meq/L Potassium 5.3 H (3.5-5.1) meq/L Chloride 112 H (98-107) meq/L Carbon Dioxide 14.8 L (21.0-32.0) meq/L Anion Gap 11 (5-15) meq/L BUN 59 H (7-18) mg/dL Creatinine 3.10 H (0.50-1.00) mg/dL Estimated GFR 18 L (>89) mL/min POC Glucose (68-110) mg/dl Random Glucose 212 H (74-106) mg/dL Lactic Acid (0.4-2.0) mmol/L Calcium 7.5 L (8.5-10.1) mg/dL Total Bilirubin 0.3 (0.2-1.0) mg/dL AST 42 H (15-37) U/L ALT 38 (10-53) U/L Alkaline Phosphatase 59 (45-117) U/L Lactate Dehydrogenase (84-246) U/L Total Protein 7.2 D (6.4-8.2) g/dL Albumin 2.4 L D (3.4-5.0) g/dL Vitamin B12 (193-986) pg/mL Folate (3.1-17.5) ng/mL Urine Color (Yellw/Straw) Urine Clarity (Clear) Urine pH (5.0-8.5) Ur Specific [place] (1.002-1.035) Urine Protein (Neg-Trace) mg/dL Urine Glucose (UA) (Negative) mg/dL Urine Ketones (Negative) mg/dL Urine Occult Blood (Negative) Urine Nitrate (Negative) Urine Bilirubin (Negative) Urine Ictotest (Negative) Urine Urobilinogen (Less than 2) mg/dL Ur Leukocyte Esterase (Negative) Urine WBC (0-5) /hpf Ur Squamous Epith Cells (0-5) /hpf Urine Bacteria (None) /hpf Hyaline Casts (0-3) /lpf Micro UA Comment Ur Microscopic Review Urine Culture Comments Nasal Screen MRSA (PCR) (Negative) HIV 1&2 Ab/P24 Ag 4thGn (Nonreactive) 07/27/18 07/27/18 Range/Units 04:20 08:11 CBC w Diff WBC (4.0-11.0) th/mm3 RBC (4.00-5.30) mil/mm3 Hgb (11.6-15.3) gm/dL Hct (35.0-46.0) % MCV (80.0-100.0) fL MCH (27.0-34.0) pg MCHC (32.0-36.0) % RDW (11.6-17.2) % Plt Count (150-450) th/mm3 MPV (7.0-11.0) fL Neut % (Auto) (16.0-70.0) % Lymph % (Auto) (9.0-44.0) % Charles % (Auto) (0.0-8.0) % Eos % (Auto) (0.0-4.0) % Baso % (Auto) (0.0-2.0) % Neut # (Auto) (1.8-7.7) th/mm3 Lymph # (Auto) (1.0-4.8) th/mm3 Charles # (Auto) (0.0-0.9) th/mm3 Eos # (Auto) (0.0-0.4) th/mm3 Baso # (Auto) (0.0-0.2) th/mm3 WBC Differential Seg Neuts % (Manual) (16-70) % Band Neuts % (Manual) (0-6) % Lymphocytes % (Manual) (9-44) % Monocytes % (Manual) (0-8) % Metamyelocytes % (Man) (0-1) % Abs Neuts (Manual) (1.8-7.7) th/mm3 Differential Comment Retic Count (0.4-3.0) % Absolute Retic (20.0-150.0) mil/L Haptoglobin 198 (30-200) mg/dL Sodium (136-145) meq/L Potassium (3.5-5.1) meq/L Chloride (98-107) meq/L Carbon Dioxide (21.0-32.0) meq/L Anion Gap (5-15) meq/L BUN (7-18) mg/dL Creatinine (0.50-1.00) mg/dL Estimated GFR (>89) mL/min POC Glucose 240 H (68-110) mg/dl Random Glucose (74-106) mg/dL Lactic Acid (0.4-2.0) mmol/L Calcium (8.5-10.1) mg/dL Total Bilirubin (0.2-1.0) mg/dL AST (15-37) U/L ALT (10-53) U/L Alkaline Phosphatase (45-117) U/L Lactate Dehydrogenase 187 (84-246) U/L Total Protein (6.4-8.2) g/dL Albumin (3.4-5.0) g/dL Vitamin B12 1154 H (193-986) pg/mL Folate Greater than 20.0 H (3.1-17.5) ng/mL Urine Color (Yellw/Straw) Urine Clarity (Clear) Urine pH (5.0-8.5) Ur Specific [place] (1.002-1.035) Urine Protein (Neg-Trace) mg/dL Urine Glucose (UA) (Negative) mg/dL Urine Ketones (Negative) mg/dL Urine Occult Blood (Negative) Urine Nitrate (Negative) Urine Bilirubin (Negative) Urine Ictotest (Negative) Urine Urobilinogen (Less than 2) mg/dL Ur Leukocyte Esterase (Negative) Urine WBC (0-5) /hpf Ur Squamous Epith Cells (0-5) /hpf Urine Bacteria (None) /hpf Hyaline Casts (0-3) /lpf Micro UA Comment Ur Microscopic Review Urine Culture Comments Nasal Screen MRSA (PCR) (Negative) HIV 1&2 Ab/P24 Ag 4thGn (Nonreactive) Imaging Data Radiologist's impression: Chest X-Ray 07/26/18 11:28 CONCLUSION: Negative for acute process Abdomen/Bladder Ultrasound 07/27/18 00:00 CONCLUSION: 1. Negative renal sonogram. Discharge Plan Discharge Disposition Patient Disposition: 30 Still Patient Discharge Details Diagnosis: Sepsis, DILMA (acute kidney injury), Pancytopenia, Hypertension, Diabetes Physicians Team ED Provider: Enoc Alcantar Primary Care Provider: Naveen Wall Attending Provider: Kaushal Aranda Other Providers: Jeffry Cruz Interventions Interventions: ED Discharge Assessment Last Done: 07/26/18 15:30 Vital Signs Last Done: 07/26/18 14:21 Status ED Status: Left Department Discharge Information Discharge Date/Time: 07/26/18 15:20
[2018-07-26 13:13] LABS: Bacteria,Urine Moderate /hpf; Squamous Epithelial Cell,Urine 0-5 /hpf (0-5); WBC,Urine 0-5 /hpf (0-5)
[2018-07-26] MEDS ORDERED: Piperacil/Tazo 3.375 GM Premix 50 ML IV.SIG ONE (14:06)
[2018-07-26] MEDS ORDERED: Dextrose 50% in Water 50 ML Vial IV.PUSH PRN (14:30)
[2018-07-26] MEDS ORDERED: Sod Chloride 0.9% Inj 1,000 ML IV.SIG SCH (14:30)
[2018-07-26] MEDS ORDERED: Vancomycin Consult Pharmacy OTHER PRN (15:57)
[2018-07-26] MEDS ORDERED: Vancomycin Inj 1 GM/200 ML PIGGYBACK IV.SIG ONE (15:57)
[2018-07-26] MEDS ORDERED: MethylPREDNISolone Sod Succinate Inj 125 MG/2 ML Vial IV.PUSH ONE (15:58)
[2018-07-26] MEDS ORDERED: Acetaminophen 500 MG Tablet PO PRN (15:59)
--- NOTE | 2018-07-26 16:19 | P.HP ---
History of Present Illness Service: [facility] Adult med Primary Care Physician: Naveen Wall MD Chief Complaint: weakness, weight loss History of Present Illness: This is a 62-year-old female with a history of thalamic CVA, diabetes mellitus, hypertension, hyperlipidemia, who presents today with complaint of generalized weakness. Patient states that she is been generally weak over the last several weeks to several months. She states she had a stroke in the late spring and since then she has been not feeling well. She reports that she has had poor appetite secondary to "bad taste" in her mouth. She states she was seen by an ENT physician who diagnosed her with bacterial pharyngitis apparently via a throat culture. She states that she was just recently started on antibiotics last week despite being seen by the ENT physician several weeks ago. Apparently the antibiotic that was started is Bactrim although I cannot confirm that on review of outpatient EMR data. There is no reported fever by patient although she has had low-grade fevers here. There is no reported chills. There is no reported URI symptoms with the exception of occasional phlegm production. There is no reported UTI symptoms. There is no abdominal pain. The patient states that she has not been eating solids for several weeks to months. She is only drinking liquids. She has therefore stopped her diabetes medications as she was having low sugars. She reports a 25 pound weight loss over the last several months due to decreased appetite. she reports normal urine output. Workup thus far remarkable for slightly decreased white count of 3.5 with increased bands, hemoglobin 10.4 and platelet count 122. BUN elevated at 65 with a creatinine of 4.1 (baseline creatinine is typically around 1). Bicarb 14.7 and sodium 132. Serum lactate is 1 and blood sugar is in the 160s. 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 This includes certification that hospital inpatient services are reasonable and necessary and in the case of services not specified as inpatient-only under 42 CFR 419.22(n), that they are appropriately provided as inpatient services in accordance to with the 2-midnight benchmark under 43 CFR 412.3(e) Estimated Total Length of Stay (Days): 3 Plans for Post Hospital Care: Not yet determined Review of Systems Constitutional: Reports anorexia, Reports chills, Reports fatigue, Reports lack of energy, Reports malaise, Reports weakness, Reports weight loss, Denies body ache(s), Denies daytime sleepiness, Denies excessive sweating, Denies headache(s ), Denies increased appetite, Denies night sweats, Denies weight gain, Denies other Eyes: Denies blind spots, Denies blurry vision, Denies bulging eyes, Denies change in vision, Denies double vision, Denies discharge, Denies dry eyes, Denies floaters, Denies irritation, Denies itchy eyes, Denies loss of vision, Denies pain, Denies requires corrective lenses, Denies sensitivity to light, Denies other Ears, Nose, Mouth, and Throat: Reports hoarseness, Denies abnormal hearing, Denies bleeding gums, Denies bad breath, Denies change in voice, Denies dental pain, Denies difficulty swallowing, Denies dizziness, Denies dry mouth, Denies ear discharge, Denies ear pain, Denies facial pain, Denies headache(s), Denies hearing loss, Denies lip swelling, Denies nosebleed, Denies mouth lesions, Denies mouth pain, Denies nasal congestion, Denies nasal discharge, Denies nasal obstruction, Denies nasal trauma, Denies neck lump, Denies neck pain, Denies nose pain, Denies pain with swallowing, Denies poor balance, Denies post nasal drip, Denies ringing in the ears, Denies sinus pain, Denies sinus pressure , Denies sore throat, Denies throat swelling, Denies tongue swelling, Denies other Cardiovascular: Denies chest pain, Denies chest pain at rest, Denies chest pain with activity, Denies excessive sweating, Denies fainting, Denies fast heart rate, Denies foot swelling, Denies generalized swelling, Denies irregular heart rhythm, Denies leg pain with activity, Denies leg sores, Denies leg swelling, Denies lightheadedness, Denies radiating jaw, neck or arm pain, Denies rapid, pounding, or irregular heartbeat, Denies shortness of breath, Denies shortness of breath with activity, Denies shortness of breath when lying down, Denies shortness of breath causing sudden awakening, Denies slow heart rate, Denies other Respiratory: Denies change in phlegm color, Denies chest congestion, Denies cough, Denies coughing up blood, Denies excessive phlegm production, Denies pain on inspiration, Denies pain with cough, Denies shortness of breath, Denies shortness of breath with activity, Denies snoring, Denies stridor, Denies wheezing, Denies other Gastrointestinal: Denies abdominal pain, Denies belching, Denies black, tarry stools, Denies bloating, Denies bright, red blood in stools, Denies change in bowel habits, Denies constant urge to pass stool, Denies change in stools, Denies coffee ground vomit, Denies constipation, Denies cramping, Denies difficulty swallowing, Denies excessive passing of gas, Denies feeling full early, Denies heartburn, Denies incontinent of stools, Denies loose stools, Denies nausea, Denies pain with swallowing, Denies vomiting, Denies vomiting blood, Denies other Musculoskeletal: Denies abnormal walking, Denies back pain, Denies body aches, Denies decreased muscle mass, Denies deformity, Denies joint pain, Denies joint swelling, Denies limited joint movement, Denies loss of height, Denies muscle cramps, Denies muscle weakness, Denies neck pain, Denies numbness, Denies radiating pain into limb, Denies stiffness, Denies tingling, Denies other Neurologic: Reports weakness, Denies abnormal hearing, Denies abnormal movements , Denies abnormal speech, Denies abnormal walking, Denies behavioral changes, Denies burning sensations, Denies confusion, Denies dizziness, Denies fainting, Denies frequent falls, Denies headache(s), Denies lack of coordination, Denies localized weakness, Denies loss of vision, Denies memory loss, Denies numbness, Denies other visual disturbances, Denies radiating pain, Denies restless legs, Denies convulsions, Denies seizure-like activity, Denies sensory deficit, Denies tingling, Denies tingling/numbness/burning sensations, Denies tremor(s), Denies unsteadiness, Denies other PMFSH - History History Provided By: Patient - Medical History Medical History: Medical History (Last Reviewed 07/26/18 @ 16:10 by Kaushal Aranda MD, PhD) history CVA (cerebral vascular accident) Diabetes High cholesterol Hypertension TIA (transient ischemic attack) - Surgical History Surgical History: Surgical History (Last Reviewed 07/26/18 @ 16:10 by Kaushal Aranda MD, PhD) History of partial hysterectomy Hx of breast augmentation - Family History Family History: Family History (Last Updated 07/26/18 @ 16:11 by Kaushal Aranda MD, PhD) Mother Diabetes - Social History I have reviewed the patient's Social History: Yes - Tobacco History Second Hand Smoke Exposure: No Smoking Status: Never smoker - Alcohol History How Often Do You Have a Drink Containing Alcohol: Never - Substance Use History Substance History: No History of Abuse - Travel History Recent Travel in the [place] Within the Last 8 Weeks: No Recent Travel Out of the Country Within the Last 8 Weeks: No - Immunization History Tetanus Immunization: Unsure Hx Influenza Vaccine This Season: No Medications and Allergies Active Medications: Active Medications Acetaminophen (Tylenol) 500 mg PO Q6H PRN PRN Reason: temp >100.5 Dextrose (D50w Vial) 50 ml IV.PUSH UNSCH PRN PRN Reason: PER HYPOGLYCEMIA PROTOCOL Glucagon (Glucagon Inj) 1 mg OTHER PRN PRN PRN Reason: for Hypoglycemia Protocol Sodium Chloride (Ns Inj) 1,000 mls @ 0 mls/hr IV.SIG BOLUS AMBER Last Infusion: 07/26/18 12:47 Dose: Infused Sodium Chloride (Ns Inj) 1,000 mls @ 0 mls/hr IV.SIG BOLUS AMBER Last Infusion: 07/26/18 15:05 Dose: Infused Sodium Chloride (Ns Inj) 1,000 mls @ 125 mls/hr IV.CONT .Q8H AMBER Vancomycin/Sodium Chloride (Vancomycin Inj) 1 gm in 200 mls @ 200 mls/hr IV.SIG ONCE ONE Stop: 07/26/18 16:56 Piperacillin/Tazobactam/Dextrose (Zosyn 2.25 Gm Premix) 50 mls @ 100 mls/hr IV.SIG Q8H AMBER Insulin Aspart (Novolog Insulin Correctional Sugar Inj) 0 unit SQ ACHS AMBER; Protocol Methylprednisolone Sodium Succinate (Solumedrol Inj) 125 mg IV.PUSH ONCE ONE Stop: 07/26/18 15:59 Pantoprazole Sodium (Protonix) 40 mg PO DAILY [facility] Pharmacy Profile Note (Vancomycin Consult Pharmacy) 1 each OTHER UNSCH PRN PRN Reason: Pharmacy to dose Allergies Allergy/AdvReac Type Severity Reaction Status Date / Time No Known Allergies Allergy Uncoded 07/30/17 07:34 Home Medications Medication Instructions Recorded Confirmed Type aspirin [Aspir-81] 81 mg PO DAILY 07/26/18 07/26/18 History benazepril 10 mg PO DAILY 07/26/18 07/26/18 History metformin 500 mg PO DAILY 07/26/18 07/26/18 History simvastatin 20 mg PO QPM 07/26/18 07/26/18 History sulfamethoxazole-trimethoprim 1 tab PO BID 07/26/18 07/26/18 History [Bactrim DS] Exam Vital signs: Vital Signs 07/26/18 10:54 07/26/18 11:33 07/26/18 11:48 Temperature 101.6 F H Pulse Rate 115 H 106 H 106 H Respiratory Rate 20 20 Blood Pressure 82/50 L 115/61 Pulse Oximetry 98 97 97 07/26/18 12:04 07/26/18 12:47 07/26/18 13:32 Temperature 100 F H 99 F Pulse Rate 100 H 100 H 95 H Respiratory Rate 18 18 18 Blood Pressure 130/65 118/63 93/54 L Pulse Oximetry 95 98 95 07/26/18 14:15 07/26/18 14:21 07/26/18 14:51 Temperature Pulse Rate 93 H 92 H 90 Respiratory Rate 18 18 18 Blood Pressure 83/56 L 86/53 L 97/51 L Pulse Oximetry 96 94 L 97 07/26/18 15:20 Temperature Pulse Rate 90 Respiratory Rate Blood Pressure Pulse Oximetry Intake & Output 07/25/18 07/26/18 07/26/18 18:59 06:59 18:59 Intake Total 2049 Balance 2049 Weight 93 kg Intake: IV 2049 Zosyn 3.375 GM Premix 50 ML @ 50 / 50 100 mls/hr IV.SIG ONCE ONE Rx#: [id number] NS Inj 1,000 ML @ Wide Open IV. 1999 SIG BOLUS AMBER Rx#:[id number] Other: # Voids 1 Narrative: GENERAL: No acute distress, alert and oriented, recognizes me from previous hospital stay. Pleasant and cooperative. SKIN: Warm and dry. HEAD: Atraumatic. Normocephalic. EYES: Pupils equal and round. No scleral icterus. No injection or drainage. ENT: No nasal bleeding or discharge. Mucous membranes pink and moist. Oropharynx moist. Apparent mild thrush on geographic tongue tonsillar pillars slightly erythematous, no exudate appreciated. Uvula midline. NECK: Trachea midline. No JVD. No significant preauricular or precervical lymphadenopathy. CARDIOVASCULAR: Regular rate and rhythm. RESPIRATORY: No accessory muscle use. Clear to auscultation. Breath sounds equal bilaterally. GASTROINTESTINAL: Abdomen soft, non-tender, nondistended. Hepatic and splenic margins not palpable. MUSCULOSKELETAL: Extremities without clubbing, cyanosis, or edema. No obvious deformities. NEUROLOGICAL: Awake and alert. No obvious cranial nerve deficits. Motor grossly within normal limits. Five out of 5 muscle strength in the arms and legs. Normal speech with slight hoarseness noted. PSYCHIATRIC: Appropriate mood and affect; insight and judgment normal. Results - Labs CBC & Chem 7: 07/26/18 11:30 07/26/18 11:30 Labs: Laboratory Results - last 24 hr 07/26/18 07/26/18 07/26/18 11:30 11:30 11:40 CBC w Diff Slide review pending WBC 3.5 L RBC 3.60 L Hgb 10.4 L Hct 30.6 L MCV 84.9 MCH 28.9 MCHC 34.0 RDW 12.6 Plt Count 122 L MPV 10.4 WBC Differential Manual diff final Seg Neuts % (Manual) 45 Band Neuts % (Manual) 12 H Lymphocytes % (Manual) 33 Monocytes % (Manual) 9 H Metamyelocytes % (Man) 1 Abs Neuts (Manual) 2.0 Differential Comment . Sodium 132 L Potassium 5.0 Chloride 102 Carbon Dioxide 14.7 L Anion Gap 15 BUN 65 H Creatinine 4.10 H Estimated GFR 13 L Random Glucose 164 H Lactic Acid 1.0 Calcium 8.6 Total Bilirubin 0.2 AST 41 H ALT 44 Alkaline Phosphatase 78 Total Protein 9.0 H Albumin 3.2 L Urine Color Urine Clarity Urine pH Ur Specific Fenton Urine Protein Urine Glucose (UA) Urine Ketones Urine Occult Blood Urine Nitrate Urine Bilirubin Urine Ictotest Urine Urobilinogen Ur Leukocyte Esterase Urine WBC Ur Squamous Epith Cells Urine Bacteria Hyaline Casts Micro UA Comment Ur Microscopic Review Urine Culture Comments 07/26/18 12:40 CBC w Diff WBC RBC Hgb Hct MCV MCH MCHC RDW Plt Count MPV WBC Differential Seg Neuts % (Manual) Band Neuts % (Manual) Lymphocytes % (Manual) Monocytes % (Manual) Metamyelocytes % (Man) Abs Neuts (Manual) Differential Comment Sodium Potassium Chloride Carbon Dioxide Anion Gap BUN Creatinine Estimated GFR Random Glucose Lactic Acid Calcium Total Bilirubin AST ALT Alkaline Phosphatase Total Protein Albumin Urine Color Yellow Urine Clarity Clear Urine pH 6.0 Ur Specific Fenton 1.020 Urine Protein Trace Urine Glucose (UA) Negative Urine Ketones Trace H Urine Occult Blood Negative Urine Nitrate Negative Urine Bilirubin Negative Urine Ictotest Negative Urine Urobilinogen 0.2 Ur Leukocyte Esterase Negative Urine WBC 0-5 Ur Squamous Epith Cells 0-5 Urine Bacteria Moderate H Hyaline Casts 4-10 H Micro UA Comment Culture indicated Ur Microscopic Review Microscopic reviewed Urine Culture Comments Culture indicated - Imaging Impressions Chest X-Ray 07/26/18 11:28 CONCLUSION: Negative for acute process Caprini VTE Risk Assessment Caprini VTE Risk Assessment: Moderate/High Risk (score >= 2) Caprini Risk Assessment Model: Point Value = 1 Point Value = 2 Point Value = 3 Point Value = 5 Age 41-60 Minor surgery BMI > 25 kg/m2 Swollen legs Varicose veins or History of unexplained or recurrent spontaneous Oral contraceptives or hormone replacement Sepsis (< 1 month) Serious lung disease, including pneumonia (< 1 month) Abnormal pulmonary function Acute myocardial infarction Congestive heart failure (< 1 month) History of inflammatory bowel disease Medical patient at bed rest Age 61-74 Arthroscopic surgery Major open surgery (> 45 min) Laparoscopic surgery (> 45 min) Malignancy Confined to bed (> 72 hours) Immobilizing plaster cast Central venous access Age >= 75 History of VTE Family history of VTE Factor V Leiden Prothrombin [id number] Lupus anticoagulant Anticardiolipin antibodies Elevated serum homocysteine Heparin-induced thrombocytopenia Other congenital or acquired thrombophilia Stroke (< 1 month) Elective arthroplasty Hip, pelvis, or leg fracture Acute spinal cord injury (< 1 month) Prophylaxis Regimen: Total Risk Factor Score Risk Level Prophylaxis Regimen 0-1 Low Early ambulation 2 Moderate Order ONE of the following: *Sequential Compression Device (SCD) *Heparin 5000 units SQ BID 3-4 Higher Order ONE of the following medications: *Heparin 5000 units SQ TID *Enoxaparin/Lovenox 40 mg SQ daily (WT < 150 kg, CrCl > 30 mL/min) *Enoxaparin/Lovenox 30 mg SQ daily (WT < 150 kg, CrCl > 10-29 mL/min) *Enoxaparin/Lovenox 30 mg SQ BID (WT < 150 kg, CrCl > 30 mL/min) AND/OR *Sequential Compression Device (SCD) 5 or more Highest Order ONE of the following medications: *Heparin 5000 units SQ TID (Preferred with Epidurals) *Enoxaparin/Lovenox 40 mg SQ daily (WT < 150 kg, CrCl > 30 mL/min) *Enoxaparin/Lovenox 30 mg SQ daily (WT < 150 kg, CrCl > 10-29 mL/min) *Enoxaparin/Lovenox 30 mg SQ BID (WT < 150 kg, CrCl > 30 mL/min) AND *Sequential Compression Device (SCD) Assessment and Plan - Assessment (1) Sepsis Code(s): A41.9 - Sepsis, unspecified organism Status: Acute Plan: Patient appears to meet sepsis criteria with fever mild leukopenia with bandemia , hypotension and tachycardia. Questionable etiology but reportedly was diagnosed with a bacterial pharyngitis has been placed on Zosyn and I will add vancomycin at this point as unclear etiology. We will continue IV fluid as pressure seem to be responding. Will monitor at least initially in the intensive care unit. (2) DILMA (acute kidney injury) Code(s): N17.9 - Acute kidney failure, unspecified Status: Acute Plan: Possibly associated with recent antimicrobial selection peer will hold off on the Bactrim and obviously not provide metformin. Continue IV fluids and monitor urine output. (3) Diabetes Code(s): E11.9 - Type 2 diabetes mellitus without complications Status: Acute Plan: She has been holding her diabetic medications as she was having low sugars as an outpatient due to poor p.o. intake and weight loss. Will place on sliding scale insulin (4) High cholesterol Code(s): E78.00 - Pure hypercholesterolemia, unspecified Status: Acute Plan: Outpatient medication (5) Hypertension Code(s): I10 - Essential (primary) hypertension Status: Acute Plan: Will hold outpatient blood pressure medication as BP a bit low here. Continue to monitor. - Plan Code Status: Full Discussed Condition With: Patient, her nurse and ER provider (3) Diabetes Qualifiers: Diabetes mellitus type: type 2 Diabetes mellitus usp insulin use: with usp use (5) Hypertension Qualifiers: Hypertension type: essential hypertension Qualified Code(s): I10 - Essential (primary) hypertension
[2018-07-26] MEDS: Sod Chloride 0.9% Inj 1,000 ML IV.CONT SCH (16:31)
[2018-07-26] MEDS: Piperacil/Tazo 2.25 GM Premix 50 ML IV.SIG SCH (17:53)
[2018-07-26] MEDS: Insulin NovoLOG Aspart Correctional Sugar Inj SQ SCH ×2 (17:56→21:45)
[2018-07-26] MEDS ORDERED: Vancomycin Inj 1,000 MG in Sodium Chlor 0.9% Inj 250 ML IV.SIG ONE (18:00)
[2018-07-26 18:06] LABS: Potassium 5.5 meq/L (3.5-5.1)
[2018-07-26 18:08] LABS: Calcium 7.9 mg/dL (8.5-10.1); Carbon Dioxide 14.7 meq/L (21.0-32.0)
[2018-07-27] MEDS: Piperacil/Tazo 2.25 GM Premix 50 ML IV.SIG SCH ×3 (00:14→17:26)
[2018-07-27] MEDS: Sod Chloride 0.9% Inj 1,000 ML IV.CONT SCH ×3 (01:45→17:40)
[2018-07-27] MEDS ORDERED: Chlorhexidine Gluconate 2% 1 Pack (2 Cloths) TOPICAL PRN (04:00)
[2018-07-27] MEDS ORDERED: Chlorhexidine Gluconate 2% 1 Pack (2 Cloths) TOPICAL SCH (04:00)
[2018-07-27 05:02] LABS: Baso % (Auto) 0.2 % (0.0-2.0); Eos % (Auto) 0.1 % (0.0-4.0); Hematocrit 26.4 % (35.0-46.0); Hemoglobin 8.4 gm/dL (11.6-15.3); Lymph # (Auto) 0.4 th/mm3 (1.0-4.8); Lymph % (Auto) 19.5 % (9.0-44.0); Mean Corpuscular HGB Conc 31.9 % (32.0-36.0); Mean Corpuscular Hemoglobin 27.6 pg (27.0-34.0); Mean Corpuscular Volume 86.3 fL (80.0-100.0); Mean Platelet Volume 9.5 fL (7.0-11.0); Neut # (Auto) 1.7 th/mm3 (1.8-7.7); Neut % (Auto) 78.2 % (16.0-70.0); Platelet Count 112 th/mm3 (150-450); Red Blood Count 3.06 mil/mm3 (4.00-5.30); Red Cell Distribution Width 12.8 % (11.6-17.2); White Blood Count 2.1 th/mm3 (4.0-11.0)
[2018-07-27 05:10] LABS: Chloride 112 meq/L (98-107); Potassium 5.3 meq/L (3.5-5.1); Sodium 138 meq/L (136-145)
[2018-07-27 05:17] LABS: Calcium 7.5 mg/dL (8.5-10.1)
[2018-07-27 05:19] LABS: Albumin 2.4 g/dL (3.4-5.0); Anion Gap 11 meq/L (5-15); Blood Urea Nitrogen 59 mg/dL (7-18); Carbon Dioxide 14.8 meq/L (21.0-32.0); Glucose,Random 212 mg/dL (74-106)
[2018-07-27 05:27] LABS: Alanine Aminotransferase 38 U/L (10-53); Alkaline Phosphatase 59 U/L (45-117); Aspartate Aminotransferase 42 U/L (15-37); Glomerular Filtration Rate 18 mL/min (>89); Total Protein 7.2 g/dL (6.4-8.2)
--- NOTE | 2018-07-27 06:20 | P.PN ---
Subjective Interval history: Overall feeling better. Reports that the "bad taste" in her mouth seems a little bit improved as well. Reports that she has not had a bowel movement in several days but has not been eating much solid food. She has had good urine output overnight. Physical Exam Vital signs: Vital Signs 07/26/18 10:54 07/26/18 11:33 07/26/18 11:48 Temperature 101.6 F H Pulse Rate 115 H 106 H 106 H Respiratory Rate 20 20 Blood Pressure 82/50 L 115/61 Pulse Oximetry 98 97 97 07/26/18 12:04 07/26/18 12:47 07/26/18 13:32 Temperature 100 F H 99 F Pulse Rate 100 H 100 H 95 H Respiratory Rate 18 18 18 Blood Pressure 130/65 118/63 93/54 L Pulse Oximetry 95 98 95 07/26/18 14:15 07/26/18 14:21 07/26/18 14:51 Temperature Pulse Rate 93 H 92 H 90 Respiratory Rate 18 18 18 Blood Pressure 83/56 L 86/53 L 97/51 L Pulse Oximetry 96 94 L 97 07/26/18 15:20 07/26/18 15:32 07/26/18 15:36 Temperature Pulse Rate 90 86 Respiratory Rate 19 Blood Pressure 97/56 L Pulse Oximetry 96 07/26/18 16:01 07/26/18 17:01 07/26/18 18:00 Temperature Pulse Rate 86 84 84 Respiratory Rate 12 18 19 Blood Pressure 101/53 L 104/57 L Pulse Oximetry 97 97 98 07/26/18 18:12 07/26/18 19:00 07/26/18 20:00 Temperature 98.8 F Pulse Rate 84 84 84 Respiratory Rate 32 H 20 22 Blood Pressure 92/57 L 105/58 L 99/54 L Pulse Oximetry 97 96 97 07/26/18 21:00 07/26/18 22:01 07/26/18 23:00 Temperature Pulse Rate 82 84 84 Respiratory Rate 20 20 22 Blood Pressure 107/60 105/60 113/62 Pulse Oximetry 07/27/18 00:00 07/27/18 01:01 07/27/18 02:00 Temperature 99 F Pulse Rate 82 80 76 Respiratory Rate 18 16 15 Blood Pressure 108/59 L 103/62 Pulse Oximetry Intake & Output 07/26/18 07/26/18 07/27/18 06:59 18:59 06:59 Intake Total 2099 1450 / 1450 Output Total 200 / 200 Balance 2099 1250 / 1250 Weight 95 kg Intake: IV 2099 1250 / 1250 NS Inj 1,000 ML @ 125 mls/hr IV 1000 / 1000 .CONT .Q8H AMBER Rx#:[id number] Zosyn 2.25 GM Premix 50 ML @ 50 / 50 100 mls/hr IV.SIG Q8H AMBER Rx#: [id number] Zosyn 3.375 GM Premix 50 ML @ 50 / 50 100 mls/hr IV.SIG ONCE ONE Rx#: [id number] NS Inj 1,000 ML @ Wide Open IV. 1999 / 1999 SIG BOLUS AMBER Rx#:[id number] Vancomycin Inj 1,000 MG In NS 250 / 250 Inj 250 ML @ 250 mls/hr IV.SIG ONCE ONE Rx#:[id number] Oral 200 / 200 Output: Urine 200 / 200 Other: # Voids 1 1 # Bowel Movements 0 Weight On Admission 95 kg Narrative: GENERAL: Sleeping, arouses to voice. Alert and oriented pleasant. No acute distress. SKIN: Warm and dry. HEAD: Atraumatic. Normocephalic. EYES: Pupils equal and round. No scleral icterus. No injection or drainage. ENT: No nasal bleeding or discharge. Mucous membranes pink and moist. NECK: Trachea midline. No JVD. No significant anterior cervical lymphadenopathy. CARDIOVASCULAR: Regular rate and rhythm. RESPIRATORY: No accessory muscle use. Clear to auscultation. Breath sounds equal bilaterally. GASTROINTESTINAL: Abdomen soft, non-tender, nondistended. Bowel sounds normal. Hepatic and splenic margins not palpable. MUSCULOSKELETAL: Extremities without clubbing, cyanosis, or edema. No obvious deformities. NEUROLOGICAL: Awake and alert. No obvious cranial nerve deficits. Motor grossly within normal limits. Five out of 5 muscle strength in the arms and legs. Normal speech. PSYCHIATRIC: Appropriate mood and affect, but somewhat flat; insight and judgment normal. Results - Labs CBC & Chem 7: 07/27/18 04:20 07/27/18 04:20 Laboratory Results - last 24 hr 07/26/18 07/26/18 07/26/18 11:30 11:30 11:40 CBC w Diff Slide review pending WBC 3.5 L RBC 3.60 L Hgb 10.4 L Hct 30.6 L MCV 84.9 MCH 28.9 MCHC 34.0 RDW 12.6 Plt Count 122 L MPV 10.4 Neut % (Auto) Lymph % (Auto) Lamb % (Auto) Eos % (Auto) Baso % (Auto) Neut # (Auto) Lymph # (Auto) Lamb # (Auto) Eos # (Auto) Baso # (Auto) WBC Differential Manual diff final Seg Neuts % (Manual) 45 Band Neuts % (Manual) 12 H Lymphocytes % (Manual) 33 Monocytes % (Manual) 9 H Metamyelocytes % (Man) 1 Abs Neuts (Manual) 2.0 Differential Comment . Sodium 132 L Potassium 5.0 Chloride 102 Carbon Dioxide 14.7 L Anion Gap 15 BUN 65 H Creatinine 4.10 H Estimated GFR 13 L POC Glucose Random Glucose 164 H Lactic Acid 1.0 Calcium 8.6 Total Bilirubin 0.2 AST 41 H ALT 44 Alkaline Phosphatase 78 Total Protein 9.0 H Albumin 3.2 L Urine Color Urine Clarity Urine pH Ur Specific [place] Urine Protein Urine Glucose (UA) Urine Ketones Urine Occult Blood Urine Nitrate Urine Bilirubin Urine Ictotest Urine Urobilinogen Ur Leukocyte Esterase Urine WBC Ur Squamous Epith Cells Urine Bacteria Hyaline Casts Micro UA Comment Ur Microscopic Review Urine Culture Comments Nasal Screen MRSA (PCR) HIV 1&2 Ab/P24 Ag 4thGn 07/26/18 07/26/18 07/26/18 12:40 17:45 17:45 CBC w Diff WBC RBC Hgb Hct MCV MCH MCHC RDW Plt Count MPV Neut % (Auto) Lymph % (Auto) Lamb % (Auto) Eos % (Auto) Baso % (Auto) Neut # (Auto) Lymph # (Auto) Lamb # (Auto) Eos # (Auto) Baso # (Auto) WBC Differential Seg Neuts % (Manual) Band Neuts % (Manual) Lymphocytes % (Manual) Monocytes % (Manual) Metamyelocytes % (Man) Abs Neuts (Manual) Differential Comment Sodium 134 L Potassium 5.5 H Chloride 108 H Carbon Dioxide 14.7 L Anion Gap 11 BUN 61 H Creatinine 3.70 H Estimated GFR 15 L POC Glucose Random Glucose 158 H Lactic Acid Calcium 7.9 L Total Bilirubin AST ALT Alkaline Phosphatase Total Protein Albumin Urine Color Yellow Urine Clarity Clear Urine pH 6.0 Ur Specific P[place]roy 1.020 Urine Protein Trace Urine Glucose (UA) Negative Urine Ketones Trace H Urine Occult Blood Negative Urine Nitrate Negative Urine Bilirubin Negative Urine Ictotest Negative Urine Urobilinogen 0.2 Ur Leukocyte Esterase Negative Urine WBC 0-5 Ur Squamous Epith Cells 0-5 Urine Bacteria Moderate H Hyaline Casts 4-10 H Micro UA Comment Culture indicated Ur Microscopic Review Microscopic reviewed Urine Culture Comments Culture indicated Nasal Screen MRSA (PCR) HIV 1&2 Ab/P24 Ag 4thGn Nonreactive 07/26/18 07/26/18 07/26/18 17:55 18:10 21:05 CBC w Diff WBC RBC Hgb Hct MCV MCH MCHC RDW Plt Count MPV Neut % (Auto) Lymph % (Auto) Lamb % (Auto) Eos % (Auto) Baso % (Auto) Neut # (Auto) Lymph # (Auto) Lamb # (Auto) Eos # (Auto) Baso # (Auto) WBC Differential Seg Neuts % (Manual) Band Neuts % (Manual) Lymphocytes % (Manual) Monocytes % (Manual) Metamyelocytes % (Man) Abs Neuts (Manual) Differential Comment Sodium Potassium Chloride Carbon Dioxide Anion Gap BUN Creatinine Estimated GFR POC Glucose 168 H 200 H Random Glucose Lactic Acid Calcium Total Bilirubin AST ALT Alkaline Phosphatase Total Protein Albumin Urine Color Urine Clarity Urine pH Ur Specific [place] Urine Protein Urine Glucose (UA) Urine Ketones Urine Occult Blood Urine Nitrate Urine Bilirubin Urine Ictotest Urine Urobilinogen Ur Leukocyte Esterase Urine WBC Ur Squamous Epith Cells Urine Bacteria Hyaline Casts Micro UA Comment Ur Microscopic Review Urine Culture Comments Nasal Screen MRSA (PCR) Not detected HIV 1&2 Ab/P24 Ag 4thGn 07/27/18 07/27/18 04:20 04:20 CBC w Diff Auto diff final WBC 2.1 L RBC 3.06 L Hgb 8.4 L D Hct 26.4 L MCV 86.3 MCH 27.6 MCHC 31.9 L RDW 12.8 Plt Count 112 L MPV 9.5 Neut % (Auto) 78.2 H Lymph % (Auto) 19.5 Lamb % (Auto) 2.0 Eos % (Auto) 0.1 Baso % (Auto) 0.2 Neut # (Auto) 1.7 L Lymph # (Auto) 0.4 L Lamb # (Auto) 0.0 Eos # (Auto) 0.0 Baso # (Auto) 0.0 WBC Differential . Seg Neuts % (Manual) Band Neuts % (Manual) Lymphocytes % (Manual) Monocytes % (Manual) Metamyelocytes % (Man) Abs Neuts (Manual) Differential Comment . Sodium 138 Potassium 5.3 H Chloride 112 H Carbon Dioxide 14.8 L Anion Gap 11 BUN 59 H Creatinine 3.10 H Estimated GFR 18 L POC Glucose Random Glucose 212 H Lactic Acid Calcium 7.5 L Total Bilirubin 0.3 AST 42 H ALT 38 Alkaline Phosphatase 59 Total Protein 7.2 D Albumin 2.4 L D Urine Color Urine Clarity Urine pH Ur Specific [place] Urine Protein Urine Glucose (UA) Urine Ketones Urine Occult Blood Urine Nitrate Urine Bilirubin Urine Ictotest Urine Urobilinogen Ur Leukocyte Esterase Urine WBC Ur Squamous Epith Cells Urine Bacteria Hyaline Casts Micro UA Comment Ur Microscopic Review Urine Culture Comments Nasal Screen MRSA (PCR) HIV 1&2 Ab/P24 Ag 4thGn - Imaging Impressions Chest X-Ray 07/26/18 11:28 CONCLUSION: Negative for acute process Assessment and Plan - Assessment (1) Sepsis Code(s): A41.9 - Sepsis, unspecified organism Status: Acute Plan: Patient appears to meet sepsis criteria with fever mild leukopenia with bandemia , hypotension and tachycardia. Questionable etiology but reportedly was diagnosed with a bacterial pharyngitis has been placed on Zosyn and I added vancomycin at this point as unclear etiology. We will continue IV fluid as pressure seem to be responding. Vitals have remained relatively stable and blood pressure improved. Likely transfer to regular [facility] floor today. (2) DILMA (acute kidney injury) Code(s): N17.9 - Acute kidney failure, unspecified Status: Acute Plan: Possibly associated with recent antimicrobial selection. will hold off on the Bactrim and obviously not provide metformin. Continue IV fluids and monitor urine output. GFR improving. Potassium improved this morning. Good urine output. (3) Diabetes Code(s): E11.9 - Type 2 diabetes mellitus without complications Status: Acute Plan: She has been holding her diabetic medications as she was having low sugars as an outpatient due to poor p.o. intake and weight loss. Will place on sliding scale insulin (4) High cholesterol Code(s): E78.00 - Pure hypercholesterolemia, unspecified Status: Acute Plan: Outpatient medication (5) Hypertension Code(s): I10 - Essential (primary) hypertension Status: Acute Plan: Will hold outpatient blood pressure medication as BP a bit low here initially. Continue to monitor. (6) Pancytopenia Code(s): D61.818 - Other pancytopenia Status: Acute Plan: Possibly associated with recent Bactrim use. We will have hematology see the patient for an opinion. Monitor CBC. No obvious active bleeding noted. 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
[2018-07-27] MEDS ORDERED: MethylPREDNISolone Sod Succinate Inj 40 MG/ML Vial IV.PUSH ONE (06:21)
[2018-07-27] MEDS: Senna/Docusate Sodium 8.6/50 MG Tablet PO SCH (08:35)
[2018-07-27] MEDS: Insulin NovoLOG Aspart Correctional Sugar Inj SQ SCH ×4 (08:37→21:17)
--- NOTE | 2018-07-27 09:32 | US ---
EXAM DATE: 07/27/2018 12:00 AM EDT AGE/SEX: 62 years / Female INDICATIONS: Increased BUN/Creatinine. CLINICAL DATA: This is the patient's initial encounter. Patient reports that signs and symptoms have been present for 1 day and indicates a pain score of 0/10. MEDICAL/SURGICAL HISTORY: Diabetes. Transient ischemic attack. CVA. Hyperlipidemia. Hypertensi on. . Partial hysterectomy. Breast augmentation. COMPARISON: No prior exams available for comparison. MEASUREMENTS: Right Kidney:__11.7 x 4.7 x 5.1 cm Left Kidney:__9.9 x 5.4 x 5.1 cm FINDINGS: Right Kidney: Normal echotexture and cortical thickness. No mass or hydronephrosis. Left Kidney: Normal echotexture and cortical thickness. No mass or hydronephrosis. Bladder: Within normal limits given the degree of distension. Other: None. CONCLUSION: 1. Negative renal sonogram. Electronically signed by: Db Munson MD 07/27/2018 9:31 AM EDT
[2018-07-27] MEDS: Sod Chloride 0.9% Inj 1,000 ML IV.SIG SCH (10:28)
[2018-07-27 10:31] LABS: Reticulocyte Percent 1.3 % (0.4-3.0)
[2018-07-27] MEDS: Polyethylene Glycol 3350 17 GM Packet PO SCH (10:33)
[2018-07-27 10:41] LABS: Lactate Dehydrogenase 187 U/L (84-246)
[2018-07-27 11:06] LABS: Vitamin B12 1154 pg/mL (193-986)
--- NOTE | 2018-07-27 12:23 | P.DIET ---
Nutritional Evaluation Type of nutrition evaluation: initial Nutrition screening: Weight Loss > 10 lbs Subjective Subjective Comments: Refused dinner last night. Reports trouble swallowing, a bad taste in her mouth and poor appetite. Objective - Diagnosis Sepsis, DILMA, fever - Objective Body Mass Index: 36.1 % IBW: 175 (IBW = 120#) Body Weight Used for Calculations: Upper end of IBW (60 kg) Energy Needs - Lower Range (kCal/kg): 25 Energy Needs - Upper Range (kCal/kg): 30 Lower Limit kCal/kg (kCals): 1,500 Upper Limit kCal/kg (kCals): 1,800 Lower Limit Protein Factor (Grams per Kg): 1.0 Upper Limit Protein Factor (Grams per Kg): 1.5 Lower Protein Needs (Protein): 60 Upper Protein Needs (Protein): 90 Dietitian Reviewed in Medical Record: Current diet, Curent medications, Intake & Output, Labs, Medical history Diet Order: 1800 ADA Objective Comments: glu 212 Assessment Assessment: Pt is at high nutrition risk 2' to unintentional weight loss. RD will monitor po intake and assess for the need of supplements. Current diet is appropriate. If swallowing problems continue, please consult ST. Recommendations: Continue current diet Please record % of meal eaten in Feeding Assessment Dietitian to Monitor: Lab values, Intake & Output, Diet tolerance, Weight change , PO Intake, Swallow recommendations, Medical course
[2018-07-27 16:32] LABS: Hemoglobin A1c 7.8 % (4.3-6.0)
--- NOTE | 2018-07-27 17:28 | ECG ---
Date Performed: 07/26/2018 Time Performed: 11:52:08 PTAGE: 62 years EKG: SINUS TACHYCARDIA MODERATE T-WAVE ABNORMALITY, CONSIDER LATERAL ISCHEMIA Compared to previo us tracing, sinus rate is faster. Previously seen ST changes have improved ABNORMAL ECG PREVIOUS TRACING : 01/30/2014 22.43 DOCTOR: Edwin Howe Interpretating Date/Time 07/27/2018 17:27:10
--- NOTE | 2018-07-27 21:01 | MB ---
cc: Maggie Astudillo MD,Kaushal Flores MD PhD DATE: 07/27/2018 REFERRING PHYSICIAN: Kaushal Aranda MD, PhD CHIEF COMPLAINT: Dr. Aranda requested a consultation for Ms. King regarding pancytopenia. HISTORY OF PRESENT ILLNESS: Ms. King is a 62-year-old woman with a history of diabetes, hypertension, hyperlipidemia and obesity. She has a history of a thalamic CVA presenting with dysphagia and left-sided weakness in the spring of this year. She returned home with resolution of her weakness and dysphagia. Her main complaint was related to the bad taste. She had problems with sewage taste coming from the back of her throat. She explored the etiology of this with ENT and her primary physician. She was found to have pharyngitis and a bacterial infection. Bactrim was prescribed. Her dysphagia symptoms persist. The bad taste in her mouth continues to worsen to the point that she cannot swallow. She lost 25 pounds over the last 2 weeks. She was able to swallow milk to overcome the symptoms. She got transiently better with an oral antifungal. Because of progressive symptoms of weakness and weight loss, she came in to the emergency room for evaluation. During her ER visit, she was found to have pancytopenia with a white blood cell count of 3.5, hemoglobin 10.4, platelet count 122. MCV was 84.9. Her CBC from 02/2018 was completely normal. Additional finding is acute renal failure with a BUN of 65, creatinine of 4.10 with a glucose of 164. Laboratory evaluation coordinated by Dr. Aranda revealed a normal B12 and folate. She was taking supplements. LDH is normal. Haptoglobin and retic count are normal. The retic count is inappropriately low. Peripheral smear has been requested. She had a fever, low grade, at home and documented to be 101.6 in the emergency room. She has been afebrile since being brought to the floor. She has been hyperglycemic. She was surprised about the renal failure and the hyperglycemia, which she did not expect. She gives a history of an unprovoked right lower extremity deep vein thrombosis. She denies any precipitating event. She was placed on anticoagulant therapy with Coumadin for a year. She is off anticoagulant therapy now. She has had no recurrent events. Hematology/oncology is consulted for the pancytopenia. PAST MEDICAL HISTORY: Thalamic CVA; dysphagia; diabetes; hypertension; hyperlipidemia; history of right lower extremity deep vein thrombosis, unprovoked; obesity; acute renal failure; pancytopenia. PAST SURGICAL HISTORY: Significant for partial hysterectomy, breast augmentation. FAMILY HISTORY: Mother has diabetes. No significant family history of cancer. SOCIAL HISTORY: Denies any tobacco, alcohol or illicit drug use. She is and lives with her . ALLERGIES: NO KNOWN DRUG ALLERGIES. CURRENT MEDICATIONS: 1. Tylenol. 2. Chlorhexidine. 3. Diflucan. 4. NovoLog. 5. Protonix. 6. Vancomycin. 7. Zosyn. 8. MiraLAX. 9. Lelo-Colace. PHYSICAL EXAMINATION: VITAL SIGNS: Temperature 97.9, heart rate 74, respiratory rate 20, blood pressure 112/67, saturation 82%. GENERAL: Ms. Bearden is a well-developed, well-nourished woman who looks her stated age. HEENT: Her pupils are round and reactive to light and accommodation. There is mild asymmetry with the nasolabial fold less prominent on the left than on the right. Oropharynx is clear. NECK: Supple. LUNGS: Clear anteriorly. CARDIOVASCULAR: Reveals normal rate and rhythm. ABDOMEN: Large and benign. EXTREMITIES: No asymmetry. Good pulses. NEUROLOGIC: Nonfocal. She moves all 4 extremities. LABORATORY DATA: As described above. Ultrasounds of the kidneys are negative. ASSESSMENT AND PLAN: Ms. Bearden is a 62-year-old woman with multiple medical problems including hypertension, diabetes, hypercholesterolemia, presenting with fever, dysphagia, progressive after her thalamic stroke, and acute renal failure. I had a lengthy discussion with Ms. Bearden and her family present at the consultation and evaluation for her dysphagia and taste symptoms. She is clearly able to manipulate food with her oral and oropharynx. She seems to have trouble after she swallows with a sewage taste that backs up into her throat, taking away her appetite. She denies a prior history of gastroparesis. For evaluation of the dysphagia, which prompted her to be evaluated in the first place, we will consult neurology to see if a thalamic stroke can produce such symptoms. Gastroenterology is consulted for an esophageal dysmotility evaluation. Peripheral smear will be reviewed. A normal LDH and haptoglobin argues against a thrombotic thrombocytopenic purpura. She may be febrile for other reasons. The acute renal failure appears to be prerenal. She is receiving hydration support and control of her diabetes. Parvovirus will also be checked. She has pancytopenia. I have considered an ultrasound of the liver and spleen to rule out hypersplenism and fatty liver in light of her diabetes history. Interestingly, her CBC in February was completely normal. At present, no specific therapy is required for the pancytopenia. I am unable to exclude completely a possibility of a drug effect such as the Bactrim or current antibiotic. Currently, the decrease in hemoglobin is suspected to be dilutional. Stool for Hemoccult will be checked. She was microcytic in February, suggesting an iron deficiency. The high folic acid and B12 levels are possibly due to her supplement versus liver disease. There is suggestion of liver function abnormality with the hypoalbuminemia, but that may be from her decreased p.o. intake. Her AST is elevated. Ms. Bearden's and her family's questions were answered to their satisfaction. Deep venous thrombosis prophylaxis will be initiated in light of her history of deep vein thrombosis, unprovoked. MD ANDREA Canela/arcelia , 06:20 PM , 06:37 PM
[2018-07-27] MEDS: Heparin - SQ 10,000 UNITS/ML Vial SQ SCH (21:17)
[2018-07-28] MEDS: Piperacil/Tazo 2.25 GM Premix 50 ML IV.SIG SCH ×3 (00:45→16:45)
[2018-07-28] MEDS: Sod Chloride 0.9% Inj 1,000 ML IV.CONT SCH ×3 (02:25→16:45)
[2018-07-28 05:16] LABS: Baso % (Auto) 0.1 % (0.0-2.0); Eos % (Auto) 0.4 % (0.0-4.0); Hematocrit 25.5 % (35.0-46.0); Hemoglobin 8.2 gm/dL (11.6-15.3); Lymph # (Auto) 0.8 th/mm3 (1.0-4.8); Lymph % (Auto) 19.4 % (9.0-44.0); Mean Corpuscular HGB Conc 32.2 % (32.0-36.0); Mean Corpuscular Hemoglobin 27.8 pg (27.0-34.0); Mean Corpuscular Volume 86.4 fL (80.0-100.0); Mean Platelet Volume 10.1 fL (7.0-11.0); Mono # (Auto) 0.4 th/mm3 (0.0-0.9); Mono % (Auto) 8.4 % (0.0-8.0); Neut # (Auto) 3.2 th/mm3 (1.8-7.7); Neut % (Auto) 71.7 % (16.0-70.0); Platelet Count 132 th/mm3 (150-450); Red Blood Count 2.95 mil/mm3 (4.00-5.30); Red Cell Distribution Width 13.1 % (11.6-17.2); White Blood Count 4.4 th/mm3 (4.0-11.0)
[2018-07-28 05:23] LABS: Potassium 5.3 meq/L (3.5-5.1)
[2018-07-28 05:41] LABS: Albumin 2.5 g/dL (3.4-5.0); Calcium 7.2 mg/dL (8.5-10.1); Carbon Dioxide 13.2 meq/L (21.0-32.0); Total Protein 7.2 g/dL (6.4-8.2)
--- NOTE | 2018-07-28 06:39 | P.PN ---
Subjective Interval history: Feeling much better. The "bad taste" in her mouth is improving and she actually enjoyed eating some broth last night. She says is the first time she has had appropriate taste with food intake in several months. She denies ever having any trouble actually swallowing to states that the bad taste of made her not want to eat. Vital signs and renal indices improving as well. Physical Exam Vital signs: Vital Signs 07/27/18 08:00 07/27/18 13:00 07/27/18 16:00 Temperature 97.9 F 97.8 F Pulse Rate 78 74 76 Respiratory Rate 19 22 18 Blood Pressure 103/62 112/67 112/67 Pulse Oximetry 07/27/18 20:00 07/28/18 00:00 07/28/18 02:00 Temperature 98 F 98 F Pulse Rate 78 78 86 Respiratory Rate 24 20 17 Blood Pressure 112/64 97/56 L 103/60 Pulse Oximetry 97 95 07/28/18 04:00 Temperature 98.1 F Pulse Rate 68 Respiratory Rate 14 Blood Pressure 112/65 Pulse Oximetry Intake & Output 07/27/18 07/27/18 07/28/18 06:59 18:59 06:59 Intake Total 1500 / 1500 2300 / 2300 1850 / 1850 Output Total 200 / 200 1400 / 1400 Balance 1300 / 1300 900 / 900 1850 / 1850 Weight 95.4 kg 94.7 kg Intake: IV 1300 / 1300 2100 / 2100 1050 / 1050 NS Inj 1,000 ML @ 125 mls/hr IV 1000 / 1000 2000 / 2000 1000 / 1000 .CONT .Q8H AMBER Rx#:[id number] Zosyn 2.25 GM Premix 50 ML @ 50 / 50 100 / 100 50 / 50 100 mls/hr IV.SIG Q8H [facility]BER Rx#: [id number] Vancomycin Inj 1,000 MG In NS 250 / 250 Inj 250 ML @ 250 mls/hr IV.SIG ONCE ONE Rx#:[id number] Oral 200 / 200 200 / 200 800 / 800 Output: Urine 200 / 200 1400 / 1400 Other: # Voids 1 4 3 Date of Last Bowel Movement 07/27/18 # Bowel Movements 0 0 1 Narrative: GENERAL: Awake and more interactive today. Alert and oriented, pleasant. No acute distress. SKIN: Warm and dry. HEAD: Atraumatic. Normocephalic. EYES: Pupils equal and round. No scleral icterus. No injection or drainage. ENT: No nasal bleeding or discharge. Mucous membranes pink and moist. No obvious dental abscess noted. NECK: Trachea midline. No JVD. No significant anterior cervical lymphadenopathy. CARDIOVASCULAR: Regular rate and rhythm. RESPIRATORY: No accessory muscle use. Clear to auscultation. Breath sounds equal bilaterally. GASTROINTESTINAL: Abdomen soft, non-tender, nondistended. Bowel sounds normal. Hepatic and splenic margins not palpable. MUSCULOSKELETAL: Extremities without clubbing, cyanosis, or edema. No obvious deformities. NEUROLOGICAL: Awake and alert. No obvious cranial nerve deficits. Motor grossly within normal limits. Five out of 5 muscle strength in the arms and legs. Normal speech but slight dysarthria/lisp which is chronic. PSYCHIATRIC: Appropriate mood and affect, more animated; insight and judgment normal. Results - Labs CBC & Chem 7: 07/28/18 04:40 07/28/18 04:40 Laboratory Results - last 24 hr 07/26/18 07/27/18 07/27/18 11:30 04:20 04:20 CBC w Diff WBC RBC Hgb Hct MCV MCH MCHC RDW Plt Count MPV Neut % (Auto) Lymph % (Auto) Crook % (Auto) Eos % (Auto) Baso % (Auto) Neut # (Auto) Lymph # (Auto) Crook # (Auto) Eos # (Auto) Baso # (Auto) WBC Differential Differential Comment Smear Path Review Retic Count 1.3 Absolute Retic 38.9 Haptoglobin 198 Sodium Potassium Chloride Carbon Dioxide Anion Gap BUN Creatinine Estimated GFR POC Glucose Random Glucose Hemoglobin A1c 7.8 H Calcium Prot Corrected Calcium Total Bilirubin AST ALT Alkaline Phosphatase Lactate Dehydrogenase 187 Total Protein Albumin Vitamin B12 1154 H Folate Greater than 20.0 H 07/27/18 07/27/18 07/27/18 08:11 11:42 17:06 CBC w Diff WBC RBC Hgb Hct MCV MCH MCHC RDW Plt Count MPV Neut % (Auto) Lymph % (Auto) Crook % (Auto) Eos % (Auto) Baso % (Auto) Neut # (Auto) Lymph # (Auto) Crook # (Auto) Eos # (Auto) Baso # (Auto) WBC Differential Differential Comment Smear Path Review Retic Count Absolute Retic Haptoglobin Sodium Potassium Chloride Carbon Dioxide Anion Gap BUN Creatinine Estimated GFR POC Glucose 240 H 243 H 242 H Random Glucose Hemoglobin A1c Calcium Prot Corrected Calcium Total Bilirubin AST ALT Alkaline Phosphatase Lactate Dehydrogenase Total Protein Albumin Vitamin B12 Folate 07/27/18 07/27/18 07/28/18 18:08 20:43 04:40 CBC w Diff WBC RBC Hgb Hct MCV MCH MCHC RDW Plt Count MPV Neut % (Auto) Lymph % (Auto) Crook % (Auto) Eos % (Auto) Baso % (Auto) Neut # (Auto) Lymph # (Auto) Crook # (Auto) Eos # (Auto) Baso # (Auto) WBC Differential Differential Comment Smear Path Review Retic Count Absolute Retic Haptoglobin Sodium 140 Potassium 5.3 H Chloride 116 H Carbon Dioxide 13.2 L Anion Gap 11 BUN 42 H Creatinine 1.90 H Estimated GFR 32 L POC Glucose 242 H Random Glucose 226 H Hemoglobin A1c Calcium 7.2 L* Prot Corrected Calcium 7.2 L* Total Bilirubin 0.2 AST 43 H ALT 46 Alkaline Phosphatase 59 Lactate Dehydrogenase Total Protein 7.2 Albumin 2.5 L Vitamin B12 Folate 07/28/18 04:40 CBC w Diff Auto diff final WBC 4.4 RBC 2.95 L Hgb 8.2 L Hct 25.5 L MCV 86.4 MCH 27.8 MCHC 32.2 RDW 13.1 Plt Count 132 L MPV 10.1 Neut % (Auto) 71.7 H Lymph % (Auto) 19.4 Crook % (Auto) 8.4 H Eos % (Auto) 0.4 Baso % (Auto) 0.1 Neut # (Auto) 3.2 Lymph # (Auto) 0.8 L Crook # (Auto) 0.4 Eos # (Auto) 0.0 Baso # (Auto) 0.0 WBC Differential . Differential Comment . Smear Path Review Retic Count Absolute Retic Haptoglobin Sodium Potassium Chloride Carbon Dioxide Anion Gap BUN Creatinine Estimated GFR POC Glucose Random Glucose Hemoglobin A1c Calcium Prot Corrected Calcium Total Bilirubin AST ALT Alkaline Phosphatase Lactate Dehydrogenase Total Protein Albumin Vitamin B12 Folate Microbiology 07/26/18 11:30 Blood - Peripheral Aerobic Blood Culture - Preliminary gram positive cocci 07/26/18 11:30 Blood - Peripheral Anaerobic Blood Culture - Preliminary No growth in 1 day 07/26/18 12:40 Clean Catch Urine Urine Culture - Preliminary No growth in 24 hours 07/26/18 11:40 Blood - Peripheral Aerobic Blood Culture - Preliminary No growth in 1 day 07/26/18 11:40 Blood - Peripheral Anaerobic Blood Culture - Preliminary No growth in 1 day - Imaging Impressions Abdomen/Bladder Ultrasound 07/27/18 00:00 CONCLUSION: 1. Negative renal sonogram. Assessment and Plan - Assessment (1) Sepsis Code(s): A41.9 - Sepsis, unspecified organism Status: Acute Plan: Patient appears to meet sepsis criteria with fever mild leukopenia with bandemia , hypotension and tachycardia. Questionable etiology but reportedly was diagnosed with a bacterial pharyngitis has been placed on Zosyn and I added vancomycin at this point as unclear etiology. Clinically improving although 1 blood culture noted for gram-positive cocci in pairs and clusters. Vitals have remained relatively stable and blood pressure improved. Transferred to regular [facility] floor when bed available. (2) DILMA (acute kidney injury) Code(s): N17.9 - Acute kidney failure, unspecified Status: Acute Plan: Possibly associated with recent antimicrobial selection. will hold off on the Bactrim and obviously not provide metformin. Continue IV fluids and monitor urine output. GFR improving, but still with apparent metabolic acidosis. We will provide bicarbonate. Good urine output. (3) Dysgeusia Code(s): R43.2 - Parageusia Status: Acute Plan: Possibly associated with prior stroke however seems to be improving with current therapy. Neurology and GI have been consulted per chart review. She does not describe any obvious dysphagia or odynophagia. (4) Diabetes Code(s): E11.9 - Type 2 diabetes mellitus without complications Status: Acute Plan: She has been holding her diabetic medications as she was having low sugars as an outpatient due to poor p.o. intake and weight loss. Will continue sliding scale insulin. Her symptoms have not been consistent with classic gastroparesis. (5) High cholesterol Code(s): E78.00 - Pure hypercholesterolemia, unspecified Status: Acute Plan: Outpatient medication (6) Hypertension Code(s): I10 - Essential (primary) hypertension Status: Acute Plan: Will hold outpatient blood pressure medication as BP a bit low here initially. Continue to monitor. (7) Pancytopenia Code(s): D61.818 - Other pancytopenia Status: Acute Plan: Possibly associated with recent Bactrim use. Appreciate hematology input. Monitor CBC. No obvious active bleeding noted and hemoglobin relatively stable this morning. Stool Hemoccult pending. 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
[2018-07-28] MEDS: Heparin - SQ 10,000 UNITS/ML Vial SQ SCH ×2 (08:43→20:55)
[2018-07-28] MEDS: Senna/Docusate Sodium 8.6/50 MG Tablet PO SCH (08:44)
[2018-07-28] MEDS: Polyethylene Glycol 3350 17 GM Packet PO SCH (08:45)
--- NOTE | 2018-07-28 09:26 | CT ---
EXAM DATE: 07/28/2018 9:09 AM EDT AGE/SEX: 62 years / Female INDICATIONS: Dysphagia. Bad taste in her mouth causing decreased appetite and weight loss. CLINICAL DATA: This is the patient's initial encounter. Patient reports that signs and symptoms have been present for 3 months and indicates a pain score of 0/10. MEDICAL/SURGICAL HISTORY: Cerebrovascular disease. Diabetes. Hypertension. Hysterectomy. RADIATION DOSE: 15.83 CTDI (mGy) COMPARISON: [facility], CTA CAROTID ARTERIES W 3D RECON, 03/06/2018. . TECHNIQUE: Helical acquisition was performed using a multirow detector CT scanner without contrast. Using automated exposure control and adjustment of the mA and/or kV according to patient size, radiat ion dose was kept as low as reasonably achievable to obtain optimal diagnostic quality images. DICOM format image data is available electronically for review and comparison. FINDINGS: Nasopharynx: The nasopharyngeal airway has a normal configuration. No mucosal thickening or mass is seen. Oropharynx: The intrinsic muscles of the tongue are symmetric. The tonsillar pillars are intact. T he prevertebral soft tissues are not thickened. Larynx: The supraglottic, glottic, and infraglottic structures are intact. Parapharyngeal: The parapharyngeal space is intact. Salivary Glands: The parotid and submandibular glands are intact. Lymph Nodes: Minimal nonspecific 7 mm low lymph nodes low in the right neck. Minimal 4 to 5 mm group 2 lymph nodes in the left neck Bones: Unremarkable. CONCLUSION: 1. Nonspecific cervical adenopathy. Clinical correlation suggested. Electronically signed by: Otf Neville MD 07/28/2018 9:25 AM EDT
--- NOTE | 2018-07-28 09:37 | US ---
EXAM DATE: 07/28/2018 12:00 AM EDT AGE/SEX: 62 years / Female INDICATIONS: Elevated lab values. CLINICAL DATA: This is the patient's initial encounter. Patient reports that signs and symptoms have been present for 1 day and indicates a pain score of 0/10. MEDICAL/SURGICAL HISTORY: . Diabetes. Transient ischemic attack. CVA. Hyperlipidemia. Hypertens ion. . Partial hysterectomy. Breast augmentation. COMPARISON: [facility], US KIDNEY/RENAL/BLADDER, 07/27/2018. . MEASUREMENTS: Liver:__ 15.0 cm. Common Bile Duct:__ 4mm. Right Kidney:__ 10.5 x 4.4 x 4.3 cm. FINDINGS: Liver: Normal echotexture without focal lesion or ductal dilatation. Portal Vein: Hepatopedal flow seen in portal vein. Common Duct: No intraluminal mass or stone visualized. Gallbladder: Demonstrates no wall thickening or pericholecystic fluid. No stones visualized. Pancreas: Not well visualized. Right Kidney: Normal echotexture and cortical thickness. No mass or hydronephrosis. Other: None. CONCLUSION: 1. Normal ultrasound the liver. Electronically signed by: Otf Neville MD 07/28/2018 9:35 AM EDT
[2018-07-28] MEDS: Insulin NovoLOG Aspart Correctional Sugar Inj SQ SCH ×4 (09:59→21:07)
[2018-07-28 10:21] LABS: Vancomycin,Random 5.5 Comment
--- NOTE | 2018-07-28 11:48 | MB ---
cc: Lois Johnson MD,Kaushal Flores MD PhD DATE: 07/28/2018 REFERRING PHYSICIAN: Dr. Aranda. REASON FOR CONSULTATION: Weakness, weight loss. HISTORY OF PRESENT ILLNESS: Ms. Bearden is a very pleasant 62-year-old lady with history of thalamic CVA, diabetes, hypertension, hyperlipidemia, who was admitted to the hospital with generalized weakness. She has difficulty swallowing, a bad taste for approximately half year. She stated that after the CVA, she had some difficulty swallowing. She saw her primary care doctor. Since then, symptoms got worse, and she continued to have a bad taste in her mouth. She was evaluated by ENT physician. She was placed on antibiotics for bacterial pharyngitis, and after that she stated everything got worse. She denies any melena, hematemesis, hematochezia, abdominal pain. She has some weight loss, approximately 25 pounds, due to poor appetite. She is able to drink some liquids, and has not been able to eat solids for a couple of months. PAST MEDICAL HISTORY: As above and history of right lower extremity DVT, obesity, acute renal failure, pancytopenia. PAST SURGICAL HISTORY: Had partial hysterectomy, breast augmentation. 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 Denies any alcohol or drug use. FAMILY HISTORY: Mother has diabetes. ALLERGIES: NO KNOWN ALLERGIES. MEDICATIONS: She is on Tylenol, glucagon sodium, vancomycin, piperacillin, insulin, methylprednisolone, Protonix. REVIEW OF SYSTEMS: CONSTITUTIONAL: he denies any fever or chills. She does have weight loss. ENT: No alteration in baseline hearing or visual acuity, but she does have dysphagia and some bad taste in the mouth as discussed before. PULMONARY: Denies any cough, shortness of breath. CARDIOVASCULAR: Denies any palpitation or pedal edema. GASTROINTESTINAL: As above. GENITOURINARY: Denies dysuria or hematuria. HEMATOLOGICAL: No history of anemia or bleeding disorder. SKIN: No alteration on baseline skin lesion. NEUROLOGIC: No history of TIA or CVA kind of symptoms recently. MEDICATIONS: In the hospital, she is on: 1. Tylenol. 2. Chlorhexidine. 3. Diflucan. 4. NovoLog. 5. Protonix. 6. Vancomycin. 7. Zosyn. 8. MiraLax. 9. Lelo-Colace. CLINICAL PHYSICAL EXAMINATION: GENERAL: She is sitting comfortable in bed, in no acute distress. VITAL SIGNS: Stable. HEENT: PERRLA. NECK: No JVD. No lymphadenopathy. CHEST: Clear on auscultation and palpation. CARDIOVASCULAR: S1, S2. No murmur. ABDOMEN: Soft, nontender. Bowel sounds are present. CENTRAL NERVOUS SYSTEM: Awake, alert, oriented x3. No focal signs identified. LABORATORY DATA: Her labs were reviewed. Pancytopenia and decreased renal function. ASSESSMENT AND PLAN: Oropharyngeal dysphagia, possibly secondary to pharyngitis. The patient was evaluated by speech therapy. No etiology for her symptoms was found. Weight loss, most likely secondary to oropharyngeal dysphagia. RECOMMENDATIONS: Barium swallow. If this is negative, we will consider a repeat barium swallow with speech therapist. CT neck. Continue current regimen. Supportive care. PPIs. If the above is negative, consider upper endoscopy with possible dilatation Thank you for referring her to our office for consultation. Further recommendation will depend on the patient's clinical status and the above results. Lois Johnson MD BSB/ , 08:26 AM , 08:36 AM
[2018-07-28] MEDS ORDERED: Vancomycin Inj 1,700 MG in Sodium Chlor 0.9% Inj 500 ML IV.SIG SCH (16:00)
--- NOTE | 2018-07-28 22:32 | MB ---
cc: Martell Triplett MD, PhD DATE: 07/28/2018 REASON FOR CONSULTATION: Possible stroke. HISTORY OF PRESENT ILLNESS: This is a pleasant 62-year-old female who has a history of thalamic stroke in the past in February with left-sided weakness, as well as hypertension, hyperlipidemia. The patient states that the past several months, she developed different changes in taste burning tongue as well, which has been very progressive to evolve into a very bad taste with decreased appetite, decreased p.o. intake. She comes in with generalized weakness as well. She is not able to eat only able to drink liquids. PAST MEDICAL HISTORY: History of stroke in the past, history of diabetes. MEDICATIONS: 1. Calcium. 2. Tylenol. 3. Glucagon. 4. Protonix. 5. Vancomycin. 6. Zosyn. 7. MiraLax. 8. Lelo-Colace. NEUROLOGICAL EXAMINATION: VITAL SIGNS: Blood pressure is 112/77, pulse 81, respirations 20, temperature 96 degrees. NEUROLOGIC: Higher cortical functions normal. Cranial nerves are intact. Motor exam normal strength and tone of all groups. There is no drift. Fine motor skills are within normal limits. Reflexes are symmetric. IMAGING STUDIES: CT soft tissue neck, nonspecific cervical adenopathy. LABORATORY DATA: White count 3500, hemoglobin 10.4, hematocrit 30%, platelet count 122,000. Sodium is 140, potassium 5.3, chloride 116, the BUN is 42, creatinine 1.9, GFR 32, AST 43, ALT is 46. IMPRESSION: 1. History of thalamic stroke. Overall, stable. 2. Change in taste. RECOMMENDATIONS: Would like to get an MRI of the brain to rule out new stroke, rule out cribriform plate meningioma as well. Because of her history of stroke, would recommend aspirin 81 mg daily. Martell Triplett MD, PhD GILBERTO/randolph , 09:38 PM , 09:45 PM
[2018-07-29] MEDS: Sod Chloride 0.9% Inj 1,000 ML IV.CONT SCH ×2 (00:04→08:24)
[2018-07-29] MEDS: Piperacil/Tazo 2.25 GM Premix 50 ML IV.SIG SCH ×4 (01:53→23:42)
--- NOTE | 2018-07-29 08:16 | P.PN ---
Subjective Interval history: Overall feeling better. She is trying to eat more but still some taste are somewhat exaggerated to her particularly if there is anything sweet or sugary. Physical Exam Vital signs: Vital Signs 07/28/18 12:00 07/28/18 16:00 07/28/18 20:00 Temperature 98.6 F 97.8 F 96.9 F L Pulse Rate 70 79 81 Respiratory Rate 19 19 20 Blood Pressure 114/81 119/75 112/77 Pulse Oximetry 100 100 100 07/29/18 00:00 Temperature 98.5 F Pulse Rate 85 Respiratory Rate 20 Blood Pressure 138/62 Pulse Oximetry 98 Intake & Output 07/28/18 07/29/18 07/29/18 18:59 06:59 18:59 Intake Total 1820 / 1820 2046 Output Total 1450 / 1450 Balance 370 / 370 2046 Weight 98.6 kg Intake: IV 1100 / 1100 1567 / 1567 NS Inj 1,000 ML @ 125 mls/hr IV 1000 / 1000 1000 / 1000 .CONT .Q8H AMBER Rx#:[id number] Zosyn 2.25 GM Premix 50 ML @ 100 / 100 50 / 50 100 mls/hr IV.SIG Q8H AMBER Rx#: [id number] Vancomycin Inj 1,700 MG In NS 517 / 517 Inj 500 ML @ 250 mls/hr IV.SIG Q48H AMBER Rx#:[id number] Oral 720 / 720 480 / 480 Output: Urine 1450 / 1450 Other: # Voids 3 Date of Last Bowel Movement 07/27/18 Narrative: GENERAL: Awake and quite pleasant. Alert and oriented, pleasant. No acute distress. SKIN: Warm and dry. HEAD: Atraumatic. Normocephalic. EYES: Pupils equal and round. No scleral icterus. No injection or drainage. ENT: No nasal bleeding or discharge. Mucous membranes pink and moist. No obvious dental abscess noted. NECK: Trachea midline. No JVD. No significant anterior cervical lymphadenopathy. CARDIOVASCULAR: Regular rate and rhythm. RESPIRATORY: No accessory muscle use. Clear to auscultation. Breath sounds equal bilaterally. GASTROINTESTINAL: Abdomen soft, non-tender, nondistended. Bowel sounds normal. Hepatic and splenic margins not palpable. MUSCULOSKELETAL: Extremities without clubbing, cyanosis, or edema. No obvious deformities. NEUROLOGICAL: Awake and alert. No obvious cranial nerve deficits. Motor grossly within normal limits. Five out of 5 muscle strength in the arms and legs. Normal speech but slight dysarthria/lisp which is chronic and stable. PSYCHIATRIC: Appropriate mood and affect, more animated; insight and judgment normal. Results - Labs CBC & Chem 7: 07/28/18 04:40 07/28/18 04:40 Laboratory Results - last 24 hr 07/28/18 07/28/18 07/28/18 04:40 08:25 11:14 POC Glucose 241 H 251 H Ferritin 1295 H Random Vancomycin 5.5 07/28/18 07/28/18 07/29/18 16:16 20:59 07:44 POC Glucose 186 H 207 H 204 H Ferritin Random Vancomycin Microbiology 07/27/18 20:20 Stool Stool Occult Blood (GODWIN) - Final Hemoccult negative 07/26/18 11:30 Blood - Peripheral Aerobic Blood Culture - Preliminary gram positive cocci 07/26/18 11:30 Blood - Peripheral Anaerobic Blood Culture - Preliminary No growth in 2 days 07/26/18 11:40 Blood - Peripheral Aerobic Blood Culture - Preliminary No growth in 2 days 07/26/18 11:40 Blood - Peripheral Anaerobic Blood Culture - Preliminary No growth in 2 days 07/26/18 12:40 Clean Catch Urine Urine Culture - Final <10,000 cfu/mL mixed gram positive oralia - no further workup - Imaging Impressions Liver Ultrasound 07/28/18 00:00 CONCLUSION: 1. Normal ultrasound the liver. Soft Tissue Neck CT 07/28/18 00:00 CONCLUSION: 1. Nonspecific cervical adenopathy. Clinical correlation suggested. Assessment and Plan - Assessment (1) Sepsis Code(s): A41.9 - Sepsis, unspecified organism Status: Acute Plan: Patient appears to meet sepsis criteria with fever mild leukopenia with bandemia , hypotension and tachycardia. Questionable etiology but reportedly was diagnosed with a bacterial pharyngitis has been placed on Zosyn and I added vancomycin at this point as unclear etiology. Clinically improving although 1 blood culture noted for gram-positive cocci in pairs and clusters. Vitals have remained relatively stable and blood pressure improved. Transferred to regular [facility] floor when bed available. (2) DILMA (acute kidney injury) Code(s): N17.9 - Acute kidney failure, unspecified Status: Acute Plan: Possibly associated with recent antimicrobial selection. will hold off on the Bactrim and obviously not provide metformin. Continue IV fluids and monitor urine output. GFR improving, but still with apparent metabolic acidosis. We will provide bicarbonate. Good urine output. A.m. labs pending. (3) Dysgeusia Code(s): R43.2 - Parageusia Status: Acute Plan: Possibly associated with prior stroke however seems to be improving with current therapy. She does not describe any obvious dysphagia or odynophagia. Appreciate neurology and gastroenterology input. (4) Diabetes Code(s): E11.9 - Type 2 diabetes mellitus without complications Status: Acute Plan: She has been holding her diabetic medications as she was having low sugars as an outpatient due to poor p.o. intake and weight loss. Will continue sliding scale insulin. Her symptoms have not been consistent with classic gastroparesis. (5) High cholesterol Code(s): E78.00 - Pure hypercholesterolemia, unspecified Status: Acute Plan: Outpatient medication (6) Hypertension Code(s): I10 - Essential (primary) hypertension Status: Acute Plan: Will hold outpatient blood pressure medication as BP a bit low here initially. Continue to monitor. (7) Pancytopenia Code(s): D61.818 - Other pancytopenia Status: Acute Plan: Possibly associated with recent Bactrim use. Appreciate hematology input. Monitor CBC. No obvious active bleeding noted and hemoglobin relatively stable this morning. Stool Hemoccult negative. 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
[2018-07-29] MEDS: Senna/Docusate Sodium 8.6/50 MG Tablet PO SCH (08:18)
[2018-07-29] MEDS: Insulin NovoLOG Aspart Correctional Sugar Inj SQ SCH ×4 (08:19→20:01)
[2018-07-29] MEDS: Polyethylene Glycol 3350 17 GM Packet PO SCH (08:19)
[2018-07-29] MEDS: Heparin - SQ 10,000 UNITS/ML Vial SQ SCH ×3 (08:20→20:41)
[2018-07-29 09:19] LABS: Baso % (Auto) 0.3 % (0.0-2.0); Eos # (Auto) 0.1 th/mm3 (0.0-0.4); Eos % (Auto) 1.2 % (0.0-4.0); Hematocrit 24.1 % (35.0-46.0); Hemoglobin 8.3 gm/dL (11.6-15.3); Lymph # (Auto) 1.4 th/mm3 (1.0-4.8); Lymph % (Auto) 24.6 % (9.0-44.0); Mean Corpuscular HGB Conc 34.3 % (32.0-36.0); Mean Corpuscular Hemoglobin 28.8 pg (27.0-34.0); Mean Corpuscular Volume 83.9 fL (80.0-100.0); Mean Platelet Volume 9.7 fL (7.0-11.0); Mono # (Auto) 0.5 th/mm3 (0.0-0.9); Mono % (Auto) 8.7 % (0.0-8.0); Neut # (Auto) 3.6 th/mm3 (1.8-7.7); Neut % (Auto) 65.2 % (16.0-70.0); Platelet Count 143 th/mm3 (150-450); Red Blood Count 2.87 mil/mm3 (4.00-5.30); Red Cell Distribution Width 13.6 % (11.6-17.2); White Blood Count 5.6 th/mm3 (4.0-11.0)
[2018-07-29] MEDS ORDERED: Gadobutrol PF 10 MMOL/10 ML Vial (for RAD) IV.SIG ONE (10:15)
--- NOTE | 2018-07-29 10:39 | MR ---
EXAM DATE: 07/29/2018 9:44 AM EDT AGE/SEX: 62 years / Female INDICATIONS: CVA. Mental status changes. CLINICAL DATA: This is the patient's initial encounter. Patient reports that signs and symptoms have been present for 1 day and indicates a pain score of 0/10. MEDICAL/SURGICAL HISTORY: Diabetes mellitus type II. Hysterectomy. Breast augmentation and esther ract surgery. COMPARISON: [facility], MRI BRAIN W/O CONTRAST, 03/06/2018. . TECHNIQUE: Multiplanar, multisequence examination of the brain was performed without and with 9.8 ml Gadavist (gadobutrol) contrast as a single exam dose. FINDINGS: Cerebrum: The ventricles are normal for age. No evidence of midline shift, mass lesion, hemorrhage or acute infarction. There are tiny chronic lacunar infarcts in the basal ganglia. Basal ganglia. No extraaxial fluid collections are seen. The pituitary gland and suprasellar cistern are normal in con figuration. White Matter: On the FLAIR weighted images there are chronic small vessel ischemic changes again not ed with scattered punctate areas of increased signal again noted white matter. Posterior Fossa: The cerebellum and brainstem are intact. The 4th ventricle is midline. The cerebel lopontine angle is unremarkable. The cerebellar tonsils are normal in position. Diffusion Imaging: No focal areas of restricted diffusion are seen. No evidence of acute infarction . Extracranial: The visualized portions of the orbits and paranasal sinuses are unremarkable. Post Contrast: No abnormal areas of parenchymal or dural enhancement. No evidence of blood-brain ba rrier breakdown. CONCLUSION: 1. No acute hemorrhage or infarction. 2. Atrophy and chronic small vessel ischemic change. 3. Tiny chronic lacunar infarcts in the basal ganglia. Electronically signed by: Tima Judge MD 07/29/2018 10:37 AM EDT
[2018-07-29 13:10] LABS: Albumin 2.4 g/dL (3.4-5.0); Calcium 7.3 mg/dL (8.5-10.1); Carbon Dioxide 15.1 meq/L (21.0-32.0); Potassium 4.4 meq/L (3.5-5.1); Total Protein 7.1 g/dL (6.4-8.2)
--- NOTE | 2018-07-29 17:32 | P.PNGI ---
Subjective Interval history: Still dysgeusia.No nausea, vomiting .No dysphagia, odynophagia.CT neck noted.Ba swallow not resulted yet-as per patient was normal . Physical Exam Vital signs: Vital Signs 07/28/18 20:00 07/29/18 00:00 07/29/18 08:00 Temperature 96.9 F L 98.5 F 98 F Pulse Rate 81 85 77 Respiratory Rate 20 20 20 Blood Pressure 112/77 138/62 131/69 Pulse Oximetry 100 98 98 07/29/18 12:00 07/29/18 16:00 Temperature 97.8 F 96.4 F L Pulse Rate 98 H 78 Respiratory Rate 20 20 Blood Pressure 128/66 149/76 H Pulse Oximetry 100 98 Intake & Output 07/28/18 07/29/18 07/29/18 18:59 06:59 18:59 Intake Total 1820 / 1820 2047 / 2047 1650 / 1650 Output Total 1450 / 1450 Balance 370 / 370 2047 / 2047 1650 / 1650 Weight 98.6 kg Intake: IV 1100 / 1100 1567 / 1567 1650 / 1650 NS Inj 1,000 ML @ 125 mls/hr IV 1000 / 1000 1000 / 1000 1600 / 1600 .CONT .Q8H AMBER Rx#:[id number] Zosyn 2.25 GM Premix 50 ML @ 100 / 100 50 / 50 50 / 50 100 mls/hr IV.SIG Q8H AMBER Rx#: [id number] Vancomycin Inj 1,700 MG In NS 517 / 517 Inj 500 ML @ 250 mls/hr IV.SIG Q48H AMBER Rx#:[id number] Oral 720 / 720 480 / 480 Output: Urine 1450 / 1450 Other: # Voids 3 Date of Last Bowel Movement 07/27/18 07/28/18 - Constitutional no acute distress - Routine HEENT Exam Head: Present: normocephalic Eye: Present: EOMI, PERRL ENT: Present: mucous membranes moist - Routine Respiratory Exam Comments: normal - Routine Cardiovascular Exam Present: S1, S2 - Routine Abdominal Exam Present: soft, normoactive bowel sounds - Routine Extremities Exam Present: pulses intact, normal capillary refill - Routine Skin Exam Present: intact - Routine Neurological Exam Present: alert, oriented X3 - Routine Psychiatric Exam Present: normal affect Results - Labs CBC & Chem 7: 07/29/18 08:45 07/29/18 08:45 Laboratory Results - last 24 hr 07/28/18 07/29/18 07/29/18 20:59 07:44 08:45 CBC w Diff Auto diff final WBC 5.6 RBC 2.87 L Hgb 8.3 L Hct 24.1 L MCV 83.9 MCH 28.8 MCHC 34.3 RDW 13.6 Plt Count 143 L MPV 9.7 Neut % (Auto) 65.2 Lymph % (Auto) 24.6 [place] % (Auto) 8.7 H Eos % (Auto) 1.2 Baso % (Auto) 0.3 Neut # (Auto) 3.6 Lymph # (Auto) 1.4 [place] # (Auto) 0.5 Eos # (Auto) 0.1 Baso # (Auto) 0.0 WBC Differential . Differential Comment . Sodium Potassium Chloride Carbon Dioxide Anion Gap BUN Creatinine Estimated GFR POC Glucose 207 H 204 H Random Glucose Calcium Prot Corrected Calcium Total Bilirubin AST ALT Alkaline Phosphatase Total Protein Albumin 07/29/18 07/29/18 07/29/18 08:45 11:22 16:40 CBC w Diff WBC RBC Hgb Hct MCV MCH MCHC RDW Plt Count MPV Neut % (Auto) Lymph % (Auto) [place] % (Auto) Eos % (Auto) Baso % (Auto) Neut # (Auto) Lymph # (Auto) [place] # (Auto) Eos # (Auto) Baso # (Auto) WBC Differential Differential Comment Sodium 143 Potassium 4.4 D Chloride 117 H Carbon Dioxide 15.1 L Anion Gap 11 BUN 20 H Creatinine 1.30 H Estimated GFR 50 L POC Glucose 193 H 177 H Random Glucose 205 H Calcium 7.3 L* Prot Corrected Calcium 7.3 L* Total Bilirubin 0.3 AST 45 H ALT 57 H Alkaline Phosphatase 74 Total Protein 7.1 Albumin 2.4 L Microbiology 07/26/18 11:30 Blood - Peripheral Aerobic Blood Culture - Preliminary Staphylococcus coag negative 07/26/18 11:30 Blood - Peripheral Anaerobic Blood Culture - Preliminary No growth in 3 days 07/26/18 11:40 Blood - Peripheral Aerobic Blood Culture - Preliminary No growth in 3 days 07/26/18 11:40 Blood - Peripheral Anaerobic Blood Culture - Preliminary No growth in 3 days 07/27/18 20:20 Stool Stool Occult Blood ([facility]ODWIN) - Final Hemoccult negative - Imaging Impressions Head MRI 07/29/18 00:00 CONCLUSION: 1. No acute hemorrhage or infarction. 2. Atrophy and chronic small vessel ischemic change. 3. Tiny chronic lacunar infarcts in the basal ganglia. Assessment and Plan - Plan Dysgeusia possible secondary pharyngitis , on antibiotics , better Poor oral intake secondary to the above Pancytopenia -possible medication induced Elevated lfts -possible medication induced -us negative - Attending Attestation Recommendations Advance diet as tolerated fu gi when discharged egd/colon op unless indicated otherwise gi will sign off call us as needed
--- NOTE | 2018-07-29 19:29 | P.PNONC ---
Subjective Interval history: Resting comfortably in bed in no distress. Continues to have sore throat. Objective Vital Signs/Intake & Output: Vital Signs 07/28/18 20:00 07/29/18 00:00 07/29/18 08:00 Temperature 96.9 F L 98.5 F 98 F Pulse Rate 81 85 77 Respiratory Rate 20 20 20 Blood Pressure 112/77 138/62 131/69 Pulse Oximetry 100 98 98 07/29/18 12:00 07/29/18 16:00 Temperature 97.8 F 96.4 F L Pulse Rate 98 H 78 Respiratory Rate 20 20 Blood Pressure 128/66 149/76 H Pulse Oximetry 100 98 Intake & Output 07/29/18 07/29/18 07/30/18 06:59 18:59 06:59 Intake Total 2046 1900 / 190 Balance 2046 1900 / 1900 Weight 98.6 kg Intake: IV 1567 / 1567 1700 / 1700 NS Inj 1,000 ML @ 125 mls/hr IV 1000 / 1000 1600 / 1600 .CONT .Q8H AMBER Rx#:[id number] Zosyn 2.25 GM Premix 50 ML @ 50 / 50 100 / 100 100 mls/hr IV.SIG Q8H AMBER Rx#: [id number] Vancomycin Inj 1,700 MG In NS 517 / 517 Inj 500 ML @ 250 mls/hr IV.SIG Q48H AMBER Rx#:[id number] Oral 480 / 480 200 / 200 Other: # Voids 3 4 Date of Last Bowel Movement 07/28/18 # Bowel Movements 1 Result Diagrams: 07/30/18 07:10 07/30/18 07:10 Laboratory Results: Laboratory Results - last 24 hr 07/28/18 07/29/18 07/29/18 20:59 07:44 08:45 CBC w Diff Auto diff final WBC 5.6 RBC 2.87 L Hgb 8.3 L Hct 24.1 L MCV 83.9 MCH 28.8 MCHC 34.3 RDW 13.6 Plt Count 143 L MPV 9.7 Neut % (Auto) 65.2 Lymph % (Auto) 24.6 [place] % (Auto) 8.7 H Eos % (Auto) 1.2 Baso % (Auto) 0.3 Neut # (Auto) 3.6 Lymph # (Auto) 1.4 [place] # (Auto) 0.5 Eos # (Auto) 0.1 Baso # (Auto) 0.0 WBC Differential . Differential Comment . Sodium Potassium Chloride Carbon Dioxide Anion Gap BUN Creatinine Estimated GFR POC Glucose 207 H 204 H Random Glucose Calcium Prot Corrected Calcium Total Bilirubin AST ALT Alkaline Phosphatase Total Protein Albumin 07/29/18 07/29/18 07/29/18 08:45 11:22 16:40 CBC w Diff WBC RBC Hgb Hct MCV MCH MCHC RDW Plt Count MPV Neut % (Auto) Lymph % (Auto) [place] % (Auto) Eos % (Auto) Baso % (Auto) Neut # (Auto) Lymph # (Auto) [place] # (Auto) Eos # (Auto) Baso # (Auto) WBC Differential Differential Comment Sodium 143 Potassium 4.4 D Chloride 117 H Carbon Dioxide 15.1 L Anion Gap 11 BUN 20 H Creatinine 1.30 H Estimated GFR 50 L POC Glucose 193 H 177 H Random Glucose 205 H Calcium 7.3 L* Prot Corrected Calcium 7.3 L* Total Bilirubin 0.3 AST 45 H ALT 57 H Alkaline Phosphatase 74 Total Protein 7.1 Albumin 2.4 L Culture Results: Microbiology 07/26/18 11:30 Aerobic Blood Culture - Preliminary Blood - Peripheral Staphylococcus coag negative Anaerobic Blood Culture - Preliminary No growth in 3 days 07/26/18 11:40 Aerobic Blood Culture - Preliminary Blood - Peripheral No growth in 3 days Anaerobic Blood Culture - Preliminary No growth in 3 days 07/27/18 20:20 Stool Occult Blood ([facility]) - Final Stool Hemoccult negative 07/26/18 12:40 Urine Culture - Final Clean Catch Urine <10,000 cfu/mL mixed gram positive oralia - no further workup Imaging Studies: Impressions Head MRI 07/29/18 00:00 CONCLUSION: 1. No acute hemorrhage or infarction. 2. Atrophy and chronic small vessel ischemic change. 3. Tiny chronic lacunar infarcts in the basal ganglia. Medications: Active Medications Generic Name Dose Route Start Last Admin Trade Name Freq PRN Reason Stop Dose Admin Aspirin 81 mg 07/29/18 09:00 07/29/18 08:18 Aspirin Chew PO 81 mg DAILY AMBER Administration Calcium Carbonate 500 mg 07/28/18 09:00 07/29/18 08:18 Tums Chew CHEW 500 mg BID AMBER Administration Heparin Sodium (Porcine) 5,000 units 07/27/18 21:00 07/29/18 08:20 Heparin Inj SQ 5,000 units Q12HR AMBER Administration Sodium Chloride 1,000 mls @ 0 mls/hr 07/26/18 12:15 07/26/18 12:47 Ns Inj IV.SIG Infused BOLUS AMBER Infusion Wide Open Sodium Chloride 1,000 mls @ 0 mls/hr 07/26/18 14:30 07/26/18 15:05 Ns Inj IV.SIG Infused BOLUS AMBER Infusion Wide Open Piperacillin/Tazobactam/Dextrose 50 mls @ 100 mls/hr 07/26/18 17:00 07/29/18 18:05 Zosyn 2.25 Gm Premix IV.SIG Infused Q8H AMBER Infusion Vancomycin HCl 1,700 mg/ 517 mls @ 250 mls/hr 07/28/18 16:00 07/28/18 19:05 Sodium Chloride IV.SIG Infused Q48H AMBER Infusion Insulin Aspart 0 unit 07/26/18 17:00 07/29/18 17:07 Novolog Insulin Correctional Sugar Inj SQ 1 unit ACHS AMBER Administration Protocol Pantoprazole Sodium 40 mg 07/26/18 16:00 07/29/18 08:18 Protonix PO 40 mg DAILY AMBER Administration Polyethylene Glycol 17 gm 07/27/18 09:00 07/29/18 08:19 Miralax PO 17 gm DAILY AMBER Administration Senna/Docusate Sodium 1 tab 07/27/18 09:00 07/29/18 08:18 Lelo-Colace PO 1 tab DAILY AMBER Administration Objective Remarks: GENERAL: Well-nourished, well-developed patient. SKIN: Warm and dry. HEAD: Normocephalic. EYES: No scleral icterus. No injection or drainage. RESPIRATORY: No accessory muscle use. MUSCULOSKELETAL: Adequate muscle tone. NEUROLOGICAL: No obvious focal deficit. Awake, alert, and oriented x3. PSYCHIATRIC: Appropriate mood and affect; insight and judgment normal. Assessment/Plan - Plan 1. Pancyotpenia: WBC and platelet count slowly improving. Work up with normal LDH, reticulocyte count, folate vitamin B12. HIV WNL. Parvovirus pending. Ferritin elevated, however this is an acute phase reactant and can be elevated in liver injury. AST, ALT improving. Would recheck in outpatient setting. Possibly secondary to medication side effect vs viral illness. Continue to trend. If does not recover would consider bone marrow biopsy in the outpatient setting.
[2018-07-30] MEDS: Piperacil/Tazo 2.25 GM Premix 50 ML IV.SIG SCH (00:22)
[2018-07-30 07:35] LABS: Baso % (Auto) 0.2 % (0.0-2.0); Eos # (Auto) 0.2 th/mm3 (0.0-0.4); Eos % (Auto) 5.5 % (0.0-4.0); Hematocrit 23.7 % (35.0-46.0); Hemoglobin 8.2 gm/dL (11.6-15.3); Lymph # (Auto) 2.3 th/mm3 (1.0-4.8); Lymph % (Auto) 49.8 % (9.0-44.0); Mean Corpuscular HGB Conc 34.7 % (32.0-36.0); Mean Corpuscular Hemoglobin 28.8 pg (27.0-34.0); Mono # (Auto) 0.5 th/mm3 (0.0-0.9); Mono % (Auto) 10.6 % (0.0-8.0); Neut # (Auto) 1.5 th/mm3 (1.8-7.7); Neut % (Auto) 33.9 % (16.0-70.0); Platelet Count 151 th/mm3 (150-450); Red Blood Count 2.86 mil/mm3 (4.00-5.30); Red Cell Distribution Width 13.8 % (11.6-17.2); White Blood Count 4.5 th/mm3 (4.0-11.0)
[2018-07-30 07:41] LABS: Chloride 117 meq/L (98-107); Potassium 4.1 meq/L (3.5-5.1); Sodium 144 meq/L (136-145)
[2018-07-30 07:45] LABS: Albumin 2.2 g/dL (3.4-5.0); Anion Gap 10 meq/L (5-15); Blood Urea Nitrogen 10 mg/dL (7-18); Calcium 7.8 mg/dL (8.5-10.1); Carbon Dioxide 17.4 meq/L (21.0-32.0); Glucose,Random 179 mg/dL (74-106)
[2018-07-30 07:48] LABS: Alanine Aminotransferase 45 U/L (10-53); Aspartate Aminotransferase 29 U/L (15-37); Glomerular Filtration Rate 61 mL/min (>89)
[2018-07-30 07:50] LABS: Total Protein 6.7 g/dL (6.4-8.2)
[2018-07-30 07:51] LABS: Alkaline Phosphatase 67 U/L (45-117)
--- NOTE | 2018-07-30 08:16 | P.PN ---
Subjective Interval history: Overall states she is feeling better each day. She reports that she is eating more but her says he is not sure of this. She reports that sugars taste especially sweet to her and she cannot tolerate anything with much sugar in it at all. She also notes that things that are salty are somewhat exaggerated in her taste as well. She is able to drink fluids relatively well. Physical Exam Vital signs: Vital Signs 07/29/18 12:00 07/29/18 16:00 07/29/18 20:00 Temperature 97.8 F 96.4 F L 98.1 F Pulse Rate 98 H 78 113 H Respiratory Rate 20 20 18 Blood Pressure 128/66 149/76 H 136/65 Pulse Oximetry 100 98 94 L 07/30/18 00:00 07/30/18 04:00 Temperature 98.0 F Pulse Rate 104 H Respiratory Rate 18 16 Blood Pressure 125/78 Pulse Oximetry 95 Intake & Output 07/29/18 07/30/18 07/30/18 18:59 06:59 18:59 Intake Total 1900 / 1900 50 / 50 Balance 1900 / 1900 50 / 50 Weight 97.1 kg Intake: IV 1700 / 1700 50 / 50 NS Inj 1,000 ML @ 125 mls/hr IV 1600 / 1600 .CONT .Q8H AMBER Rx#:[id number] Zosyn 2.25 GM Premix 50 ML @ 100 / 100 50 / 50 100 mls/hr IV.SIG Q8H AMBER Rx#: [id number] Oral 200 / 200 Other: # Voids 4 3 Date of Last Bowel Movement 07/28/18 07/28/18 # Bowel Movements 1 Narrative: GENERAL: Awake and quite pleasant. Alert and oriented, pleasant. No acute distress. SKIN: Warm and dry. HEAD: Atraumatic. Normocephalic. EYES: Pupils equal and round. No scleral icterus. No injection or drainage. ENT: No nasal bleeding or discharge. Mucous membranes pink and moist. No obvious dental abscess noted. NECK: Trachea midline. No JVD. No significant anterior cervical lymphadenopathy. CARDIOVASCULAR: Regular rate and rhythm. No significant murmur appreciated. RESPIRATORY: No accessory muscle use. Clear to auscultation. Breath sounds equal bilaterally. GASTROINTESTINAL: Abdomen soft, non-tender, nondistended. Bowel sounds normal. Hepatic and splenic margins not palpable. MUSCULOSKELETAL: Extremities without clubbing, cyanosis, or edema. No obvious deformities. NEUROLOGICAL: Awake and alert. No obvious cranial nerve deficits. Motor grossly within normal limits. Five out of 5 muscle strength in the arms and legs. Normal speech but slight dysarthria/lisp which is chronic and stable. PSYCHIATRIC: Appropriate mood and affect, more animated; insight and judgment normal. Results - Labs CBC & Chem 7: 07/30/18 07:10 07/30/18 07:10 Laboratory Results - last 24 hr 07/29/18 07/29/18 07/29/18 08:45 08:45 11:22 CBC w Diff Auto diff final WBC 5.6 RBC 2.87 L Hgb 8.3 L Hct 24.1 L MCV 83.9 MCH 28.8 MCHC 34.3 RDW 13.6 Plt Count 143 L MPV 9.7 Neut % (Auto) 65.2 Lymph % (Auto) 24.6 [place] % (Auto) 8.7 H Eos % (Auto) 1.2 Baso % (Auto) 0.3 Neut # (Auto) 3.6 Lymph # (Auto) 1.4 [place] # (Auto) 0.5 Eos # (Auto) 0.1 Baso # (Auto) 0.0 WBC Differential . Differential Comment . Sodium 143 Potassium 4.4 D Chloride 117 H Carbon Dioxide 15.1 L Anion Gap 11 BUN 20 H Creatinine 1.30 H Estimated GFR 50 L POC Glucose 193 H Random Glucose 205 H Calcium 7.3 L* Prot Corrected Calcium 7.3 L* Total Bilirubin 0.3 AST 45 H ALT 57 H Alkaline Phosphatase 74 Total Protein 7.1 Albumin 2.4 L 07/29/18 07/29/18 07/30/18 16:40 19:56 07:10 CBC w Diff Auto diff final WBC 4.5 RBC 2.86 L Hgb 8.2 L Hct 23.7 L MCV 83.0 MCH 28.8 MCHC 34.7 RDW 13.8 Plt Count 151 MPV 9.0 Neut % (Auto) 33.9 Lymph % (Auto) 49.8 H [place] % (Auto) 10.6 H Eos % (Auto) 5.5 H Baso % (Auto) 0.2 Neut # (Auto) 1.5 L Lymph # (Auto) 2.3 [place] # (Auto) 0.5 Eos # (Auto) 0.2 Baso # (Auto) 0.0 WBC Differential . Differential Comment . Sodium Potassium Chloride Carbon Dioxide Anion Gap BUN Creatinine Estimated GFR POC Glucose 177 H 194 H Random Glucose Calcium Prot Corrected Calcium Total Bilirubin AST ALT Alkaline Phosphatase Total Protein Albumin 07/30/18 07/30/18 07:10 07:27 CBC w Diff WBC RBC Hgb Hct MCV MCH MCHC RDW Plt Count MPV Neut % (Auto) Lymph % (Auto) [place] % (Auto) Eos % (Auto) Baso % (Auto) Neut # (Auto) Lymph # (Auto) [place] # (Auto) Eos # (Auto) Baso # (Auto) WBC Differential Differential Comment Sodium 144 Potassium 4.1 Chloride 117 H Carbon Dioxide 17.4 L Anion Gap 10 BUN 10 Creatinine 1.10 H Estimated GFR 61 L POC Glucose 196 H Random Glucose 179 H Calcium 7.8 L Prot Corrected Calcium Total Bilirubin 0.3 AST 29 ALT 45 Alkaline Phosphatase 67 Total Protein 6.7 Albumin 2.2 L Microbiology 07/26/18 11:30 Blood - Peripheral Aerobic Blood Culture - Preliminary Staphylococcus coag negative 07/26/18 11:30 Blood - Peripheral Anaerobic Blood Culture - Preliminary No growth in 3 days 07/26/18 11:40 Blood - Peripheral Aerobic Blood Culture - Preliminary No growth in 3 days 07/26/18 11:40 Blood - Peripheral Anaerobic Blood Culture - Preliminary No growth in 3 days - Imaging Impressions Head MRI 07/29/18 00:00 CONCLUSION: 1. No acute hemorrhage or infarction. 2. Atrophy and chronic small vessel ischemic change. 3. Tiny chronic lacunar infarcts in the basal ganglia. Assessment and Plan - Assessment (1) Sepsis Code(s): A41.9 - Sepsis, unspecified organism Status: Acute Plan: Patient appears to meet sepsis criteria with fever mild leukopenia with bandemia , hypotension and tachycardia. Questionable etiology but reportedly was diagnosed with a bacterial pharyngitis has been placed on Zosyn and I added vancomycin at this point as unclear etiology. Clinically improving although 1 blood culture noted for coag negative staph. This could be contaminant.. Vitals have remained relatively stable and blood pressure improved. Will convert her to oral Augmentin. (2) DILMA (acute kidney injury) Code(s): N17.9 - Acute kidney failure, unspecified Status: Acute Plan: Possibly associated with recent antimicrobial selection. will hold off on the Bactrim and obviously not provide metformin. GFR and serum bicarbonate improving. Hopefully discharge home tomorrow. (3) Dysgeusia Code(s): R43.2 - Parageusia Status: Acute Plan: Possibly associated with prior stroke however seems to be improving with current therapy. She does not describe any obvious dysphagia or odynophagia. Appreciate neurology and gastroenterology input. (4) Diabetes Code(s): E11.9 - Type 2 diabetes mellitus without complications Status: Acute Plan: She has been holding her diabetic medications as she was having low sugars as an outpatient due to poor p.o. intake and weight loss. Will continue sliding scale insulin. Her symptoms have not been consistent with classic gastroparesis. (5) High cholesterol Code(s): E78.00 - Pure hypercholesterolemia, unspecified Status: Acute Plan: Outpatient medication (6) Hypertension Code(s): I10 - Essential (primary) hypertension Status: Acute Plan: BP meds were held as blood pressure was initially low. BP is improving. Continue to monitor. (7) Pancytopenia Code(s): D61.818 - Other pancytopenia Status: Acute Plan: Possibly associated with recent Bactrim use. Appreciate hematology input. Monitor CBC. No obvious active bleeding noted and hemoglobin relatively stable this morning. Stool Hemoccult negative. - Plan Code Status: full Discussed Condition With: Patient and her Discharge Planning: Hopefully discharge home in 1-2 days (1) Sepsis Qualifiers: Sepsis type: sepsis due to unspecified organism Qualified Code(s): A41.9 - Sepsis, unspecified organism (4) Diabetes Qualifiers: Diabetes mellitus type: type 2 Diabetes mellitus intermediate insulin use: with intermediate use (6) Hypertension Qualifiers: Hypertension type: essential hypertension Qualified Code(s): I10 - Essential (primary) hypertension
[2018-07-30] MEDS: Senna/Docusate Sodium 8.6/50 MG Tablet PO SCH (08:20)
[2018-07-30] MEDS: Polyethylene Glycol 3350 17 GM Packet PO SCH (08:20)
[2018-07-30] MEDS: Heparin - SQ 10,000 UNITS/ML Vial SQ SCH ×2 (08:21→20:45)
[2018-07-30] MEDS: Insulin NovoLOG Aspart Correctional Sugar Inj SQ SCH ×4 (08:22→20:45)
[2018-07-30] MEDS: Amoxicillin/Clavulanate 875/125 MG Tablet PO SCH ×2 (08:35→20:45)
--- NOTE | 2018-07-30 09:44 | FL ---
EXAM DATE: 07/28/2018 12:00 AM EDT AGE/SEX: 62 years / Female INDICATIONS: Dysphagia. Patient has loss of appetite due to foul taste in back of throat when swallo wing therefore suffering weight loss. CLINICAL DATA: This is the patient's subsequent encounter. Patient reports that signs and symptoms h ave been present for 2 weeks and indicates a pain score of 0/10. MEDICAL/SURGICAL HISTORY: Diabetes. Hypercholesterolemia. Hypertension. CVA. TIA. Hysterect mitchel. Breast augmentation. COMPARISON: No prior exams available for comparison. FLUORO TIME: 0.7 IMAGE COUNT: 52 FINDINGS: Air-contrast views of the hypopharynx demonstrate a normal mucosal surface without filling defect. R apid sequence images of the hypopharynx and cervical esophagus during the passage of barium demonstra te a normal swallowing function. No evidence of aspiration. Multiphasic examination of the esophagu s demonstrates no esophageal fold thickening, ulceration, or filling defect. The gastroesophageal ju nction demonstrates a small hiatal hernia. CONCLUSION: Minimal hiatal hernia at the gastroesophageal junction. Examination is otherwise within normal limits . Electronically signed by: Vincenzo Neville MD 07/30/2018 9:43 AM EDT
--- NOTE | 2018-07-30 12:42 | P.DS ---
Date of admission: 07/26/18 14:12 Primary care physician: Naveen Wall MD Attending physician on discharge: Kaushal Aranda Brief History from admission: This is a 62-year-old female with a history of thalamic CVA, diabetes mellitus, hypertension, hyperlipidemia, who presents today with complaint of generalized weakness. Patient states that she is been generally weak over the last several weeks to several months. She states she had a stroke in the late spring and since then she has been not feeling well. She reports that she has had poor appetite secondary to "bad taste" in her mouth. She states she was seen by an ENT physician who diagnosed her with bacterial pharyngitis apparently via a throat culture. She states that she was just recently started on antibiotics last week despite being seen by the ENT physician several weeks ago. Apparently the antibiotic that was started is Bactrim although I cannot confirm that on review of outpatient EMR data. There is no reported fever by patient although she has had low-grade fevers here. There is no reported chills. There is no reported URI symptoms with the exception of occasional phlegm production. There is no reported UTI symptoms. There is no abdominal pain. The patient states that she has not been eating solids for several weeks to months. She is only drinking liquids. She has therefore stopped her diabetes medications as she was having low sugars. She reports a 25 pound weight loss over the last several months due to decreased appetite. she reports normal urine output. Workup thus far remarkable for slightly decreased white count of 3.5 with increased bands, hemoglobin 10.4 and platelet count 122. BUN elevated at 65 with a creatinine of 4.1 (baseline creatinine is typically around 1). Bicarb 14.7 and sodium 132. Serum lactate is 1 and blood sugar is in the 160s. 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 [employer] No tobacco, alcohol or illicit drug use DS: Diagnosis - Discharge Diagnosis (1) Sepsis Status: Acute (2) DILMA (acute kidney injury) Status: Acute (3) Dysgeusia Status: Chronic (4) Diabetes Status: Chronic (5) High cholesterol Status: Chronic (6) Hypertension Status: Chronic (7) Pancytopenia Status: Acute DS: Medications - Discharge Medications Prescriptions: amoxicillin-pot clavulanate 1 tab PO Q12HR #10 tab pantoprazole 40 mg PO DAILY #31 tab DS: Summary Hospital Course: Pt admitted for increasing weakness and appx 25 lb wt loss over last few months due to persistent "bad taste" in her mouth. She reportedly had been dx with Strep infection as outpt and was started on Bactrim [employer]. On admission she was noted to have some low grade fevers, leukopenia, hypotension and DILMA which were thought to be c/w sepsis syndrome. She was placed on IV zosyn, Vanco and IVF. Her renal indices responded slowly and were near her baseline values at d/c. She was noted to be more pancytopenic and hematology consult was obtained. It was thought that her DILMA and pancytopenia were possibly due to Bactrim use and she was advised against such use in the future. Blood cltx were neg save 1 cltx which grew coag neg Staph. Urine cltx noted for <10,000 cfu. Stool hemoccult negative. Will be d/c home on Augmentin 875mg bid for 5 days. Neurology and GI consults were additionally obtained re: her taste disturbance and swallowing issues. Some of her taste disturbance is likely due to prior thalamic stroke given onset of symptoms after her stroke in February 2018. Her symptoms were not c/w classic gastroparesis or physical dysphagia. MRI brain revealed no acute findings. Barium swallow was done and revealed no significant abnormality...small hiatal hernia was noted. She remained afebrile, CBC and metabolic indices improved. She was encouraged to eat more calories and avoid sweets since she seemed especially sensitive to sugars. Sugars were monitored during hospital course and were covered with SSI. Metformin will be resumed at ma and she will monitor as outpt. - Time Spent with Patient Total time spent providing and/or coordinating discharge services: Less than 30 minutes - Quality: VTE Deep Vein Thrombosis/Pulmonary Embolism Present on Admission: No Exam Vital signs: Vital Signs 07/29/18 16:00 07/29/18 20:00 07/30/18 00:00 Temperature 96.4 F L 98.1 F 98.0 F Pulse Rate 78 113 H 104 H Respiratory Rate 20 18 18 Blood Pressure 149/76 H 136/65 125/78 Pulse Oximetry 98 94 L 95 07/30/18 04:00 07/30/18 08:00 07/30/18 12:00 Temperature 96.5 F L 97.2 F L Pulse Rate 71 74 Respiratory Rate 16 18 18 Blood Pressure 158/69 H 166/87 H Pulse Oximetry 98 100 Intake & Output 07/29/18 07/30/18 07/30/18 18:59 06:59 18:59 Intake Total 1900 / 1900 50 / 50 Balance 1900 / 1900 50 / 50 Weight 97.1 kg Intake: IV 1700 / 1700 50 / 50 NS Inj 1,000 ML @ 125 mls/hr IV 1600 / 1600 .CONT .Q8H AMBER Rx#:[id number] Zosyn 2.25 GM Premix 50 ML @ 100 / 100 50 / 50 100 mls/hr IV.SIG Q8H AMBER Rx#: [id number] Oral 200 / 200 Other: # Voids 4 3 Date of Last Bowel Movement 07/28/18 07/28/18 # Bowel Movements 1 Narrative: GENERAL: Sleeping, arouses to voice. Alert and oriented, pleasant. No acute distress. SKIN: Warm and dry. HEAD: Atraumatic. Normocephalic. EYES: Pupils equal and round. No scleral icterus. No injection or drainage. ENT: No nasal bleeding or discharge. Mucous membranes pink and moist. No obvious dental abscess noted. NECK: Trachea midline. No JVD. No significant anterior cervical lymphadenopathy. CARDIOVASCULAR: Regular rate and rhythm. No significant murmur appreciated. RESPIRATORY: No accessory muscle use. Clear to auscultation. Breath sounds equal bilaterally. GASTROINTESTINAL: Abdomen soft, non-tender, nondistended. Bowel sounds normal. No guarding or rebound. Hepatic and splenic margins not palpable. MUSCULOSKELETAL: Extremities without clubbing, cyanosis, or edema. No obvious deformities. NEUROLOGICAL: Awake and alert. No obvious cranial nerve deficits. Motor grossly within normal limits. Five out of 5 muscle strength in the arms and legs. Normal speech but slight dysarthria/lisp which is chronic and stable. PSYCHIATRIC: Appropriate mood and affect, more animated; insight and judgment normal. Results Procedures completed during hospitalization: none Labs on day of discharge: Labs from last 24 hours 07/30/18 07/30/18 07/30/18 11:36 07:27 07:10 CBC w Diff WBC RBC Hgb Hct MCV MCH MCHC RDW Plt Count MPV Neut % (Auto) Lymph % (Auto) Mccracken % (Auto) Eos % (Auto) Baso % (Auto) Neut # (Auto) Lymph # (Auto) [place] # (Auto) Eos # (Auto) Baso # (Auto) WBC Differential Differential Comment Sodium 144 Potassium 4.1 Chloride 117 H Carbon Dioxide 17.4 L Anion Gap 10 BUN 10 Creatinine 1.10 H Estimated GFR 61 L POC Glucose 188 H 196 H Random Glucose 179 H Calcium 7.8 L Prot Corrected Calcium Total Bilirubin 0.3 AST 29 ALT 45 Alkaline Phosphatase 67 Total Protein 6.7 Albumin 2.2 L 07/30/18 07/29/18 07/29/18 07:10 19:56 16:40 CBC w Diff Auto diff final WBC 4.5 RBC 2.86 L Hgb 8.2 L Hct 23.7 L MCV 83.0 MCH 28.8 MCHC 34.7 RDW 13.8 Plt Count 151 MPV 9.0 Neut % (Auto) 33.9 Lymph % (Auto) 49.8 H M[place]rack[place] % (Auto) 10.6 H Eos % (Auto) 5.5 H Baso % (Auto) 0.2 Neut # (Auto) 1.5 L Lymph # (Auto) 2.3 [place]rack[place] # (Auto) 0.5 Eos # (Auto) 0.2 Baso # (Auto) 0.0 WBC Differential . Differential Comment . Sodium Potassium Chloride Carbon Dioxide Anion Gap BUN Creatinine Estimated GFR POC Glucose 194 H 177 H Random Glucose Calcium Prot Corrected Calcium Total Bilirubin AST ALT Alkaline Phosphatase Total Protein Albumin 07/29/18 08:45 CBC w Diff WBC RBC Hgb Hct MCV MCH MCHC RDW Plt Count MPV Neut % (Auto) Lymph % (Auto) [place]rack[place] % (Auto) Eos % (Auto) Baso % (Auto) Neut # (Auto) Lymph # (Auto) [place]rack[place] # (Auto) Eos # (Auto) Baso # (Auto) WBC Differential Differential Comment Sodium 143 Potassium 4.4 D Chloride 117 H Carbon Dioxide 15.1 L Anion Gap 11 BUN 20 H Creatinine 1.30 H Estimated GFR 50 L POC Glucose Random Glucose 205 H Calcium 7.3 L* Prot Corrected Calcium 7.3 L* Total Bilirubin 0.3 AST 45 H ALT 57 H Alkaline Phosphatase 74 Total Protein 7.1 Albumin 2.4 L Preliminary micro results at discharge 07/26/18 11:30 Aerobic Blood Culture - Preliminary Blood - Peripheral Staphylococcus coag negative Anaerobic Blood Culture - Preliminary No growth in 4 days 07/26/18 11:40 Aerobic Blood Culture - Preliminary Blood - Peripheral No growth in 4 days Anaerobic Blood Culture - Preliminary No growth in 4 days - Impressions ITS Impressions Chest X-Ray 07/26/18 11:28 CONCLUSION: Negative for acute process Abdomen/Bladder Ultrasound 07/27/18 00:00 CONCLUSION: 1. Negative renal sonogram. Barium Swallow X-Ray 07/28/18 00:00 CONCLUSION: Minimal hiatal hernia at the gastroesophageal junction. Examination is otherwise within normal limits. Liver Ultrasound 07/28/18 00:00 CONCLUSION: 1. Normal ultrasound the liver. Soft Tissue Neck CT 07/28/18 00:00 CONCLUSION: 1. Nonspecific cervical adenopathy. Clinical correlation suggested. Head MRI 07/29/18 00:00 CONCLUSION: 1. No acute hemorrhage or infarction. 2. Atrophy and chronic small vessel ischemic change. 3. Tiny chronic lacunar infarcts in the basal ganglia. Discharge Plan - Discharge Disposition Patient Disposition: Discharge Home - Discharge Condition Condition: Stable - Discharge Order Discharge Orders: Discharge Order (Routine); Ordered 07/31/18 Ordered By: Kaushal Aranda - Discharge Details Anticipated Discharge Date: 07/31/18 - Physicians Team Primary Care Provider: Naveen Wall Attending Provider: Kaushal Aranda Other Providers: Vic Cruz MD ; Lois Johnson MD ; Martell Triplett MD, PhD
[2018-07-30 19:52] LABS: Parvovirus B19 IgG 1.4; Parvovirus B19 IgM 0.1
--- NOTE | 2018-07-31 06:42 | P.PN ---
Subjective Interval history: Feeling well. Was able to eat [employer] fries yesterday with no salt and tolerated quite well. She has been walking around the room and in the halls regularly per her and her 's report. She is desirous of discharge. She was able to tolerate the oral antibiotic. Physical Exam Vital signs: Vital Signs 07/30/18 08:00 07/30/18 12:00 07/30/18 16:00 Temperature 96.5 F L 97.2 F L 98.0 F Pulse Rate 71 74 86 Respiratory Rate 18 18 18 Blood Pressure 158/69 H 166/87 H 149/74 H Pulse Oximetry 98 100 97 07/30/18 20:00 07/30/18 23:50 Temperature 98.3 F 98.4 F Pulse Rate 82 80 Respiratory Rate 20 20 Blood Pressure 158/71 H 168/81 H Pulse Oximetry 99 98 Intake & Output 07/30/18 07/30/18 07/31/18 06:59 18:59 06:59 Intake Total 50 / 50 720 / 720 Balance 50 / 50 720 / 720 Weight 97.1 kg 97.1 kg Intake: IV 50 / 50 Zosyn 2.25 GM Premix 50 ML @ 50 / 50 100 mls/hr IV.SIG Q8H AMBER Rx#: [id number] Oral 720 / 720 Other: # Voids 3 4 Date of Last Bowel Movement 07/28/18 07/30/18 # Bowel Movements 1 Narrative: GENERAL: Sleeping, arouses to voice. Alert and oriented, pleasant. No acute distress. SKIN: Warm and dry. HEAD: Atraumatic. Normocephalic. EYES: Pupils equal and round. No scleral icterus. No injection or drainage. ENT: No nasal bleeding or discharge. Mucous membranes pink and moist. No obvious dental abscess noted. NECK: Trachea midline. No JVD. No significant anterior cervical lymphadenopathy. CARDIOVASCULAR: Regular rate and rhythm. No significant murmur appreciated. RESPIRATORY: No accessory muscle use. Clear to auscultation. Breath sounds equal bilaterally. GASTROINTESTINAL: Abdomen soft, non-tender, nondistended. Bowel sounds normal. No guarding or rebound. Hepatic and splenic margins not palpable. MUSCULOSKELETAL: Extremities without clubbing, cyanosis, or edema. No obvious deformities. NEUROLOGICAL: Awake and alert. No obvious cranial nerve deficits. Motor grossly within normal limits. Five out of 5 muscle strength in the arms and legs. Normal speech but slight dysarthria/lisp which is chronic and stable. PSYCHIATRIC: Appropriate mood and affect, more animated; insight and judgment normal. Results - Labs CBC & Chem 7: 07/30/18 07:10 07/30/18 07:10 Laboratory Results - last 24 hr 07/28/18 07/30/18 07/30/18 04:40 07:10 07:10 CBC w Diff Auto diff final WBC 4.5 RBC 2.86 L Hgb 8.2 L Hct 23.7 L MCV 83.0 MCH 28.8 MCHC 34.7 RDW 13.8 Plt Count 151 MPV 9.0 Neut % (Auto) 33.9 Lymph % (Auto) 49.8 H Garland % (Auto) 10.6 H Eos % (Auto) 5.5 H Baso % (Auto) 0.2 Neut # (Auto) 1.5 L Lymph # (Auto) 2.3 Garland # (Auto) 0.5 Eos # (Auto) 0.2 Baso # (Auto) 0.0 WBC Differential . Differential Comment . Sodium 144 Potassium 4.1 Chloride 117 H Carbon Dioxide 17.4 L Anion Gap 10 BUN 10 Creatinine 1.10 H Estimated GFR 61 L POC Glucose Random Glucose 179 H Calcium 7.8 L Total Bilirubin 0.3 AST 29 ALT 45 Alkaline Phosphatase 67 Total Protein 6.7 Albumin 2.2 L Parvovirus B19 IgG Ab 1.4 H Parvovirus B19 IgM Ab 0.1 07/30/18 07/30/18 07/30/18 07:27 11:36 16:18 CBC w Diff WBC RBC Hgb Hct MCV MCH MCHC RDW Plt Count MPV Neut % (Auto) Lymph % (Auto) Garland % (Auto) Eos % (Auto) Baso % (Auto) Neut # (Auto) Lymph # (Auto) Garland # (Auto) Eos # (Auto) Baso # (Auto) WBC Differential Differential Comment Sodium Potassium Chloride Carbon Dioxide Anion Gap BUN Creatinine Estimated GFR POC Glucose 196 H 188 H 194 H Random Glucose Calcium Total Bilirubin AST ALT Alkaline Phosphatase Total Protein Albumin Parvovirus B19 IgG Ab Parvovirus B19 IgM Ab 07/30/18 20:42 CBC w Diff WBC RBC Hgb Hct MCV MCH MCHC RDW Plt Count MPV Neut % (Auto) Lymph % (Auto) Garland % (Auto) Eos % (Auto) Baso % (Auto) Neut # (Auto) Lymph # (Auto) Garland # (Auto) Eos # (Auto) Baso # (Auto) WBC Differential Differential Comment Sodium Potassium Chloride Carbon Dioxide Anion Gap BUN Creatinine Estimated GFR POC Glucose 172 H Random Glucose Calcium Total Bilirubin AST ALT Alkaline Phosphatase Total Protein Albumin Parvovirus B19 IgG Ab Parvovirus B19 IgM Ab Microbiology 07/26/18 11:30 Blood - Peripheral Aerobic Blood Culture - Preliminary Staphylococcus coag negative 07/26/18 11:30 Blood - Peripheral Anaerobic Blood Culture - Preliminary No growth in 4 days 07/26/18 11:40 Blood - Peripheral Aerobic Blood Culture - Preliminary No growth in 4 days 07/26/18 11:40 Blood - Peripheral Anaerobic Blood Culture - Preliminary No growth in 4 days - Imaging Impressions Barium Swallow X-Ray 07/28/18 00:00 CONCLUSION: Minimal hiatal hernia at the gastroesophageal junction. Examination is otherwise within normal limits. - Procedures none Assessment and Plan - Assessment (1) Sepsis Code(s): A41.9 - Sepsis, unspecified organism Status: Acute Plan: Patient met sepsis criteria on admission with fever mild leukopenia with bandemia, hypotension and tachycardia. Questionable etiology but reportedly was diagnosed with a bacterial pharyngitis. initially treated with Zosyn and vancomycin. Converted to Augmentin orally yesterday. Clinically improving although 1 blood culture noted for coag negative staph. This could be contaminant. Vitals have remained relatively stable and blood pressure improved. (2) DILMA (acute kidney injury) Code(s): N17.9 - Acute kidney failure, unspecified Status: Acute Plan: Possibly associated with recent antimicrobial selection. will hold off on the Bactrim and obviously not provide metformin. GFR and serum bicarbonate improving. Plan discharge home today.. (3) Dysgeusia Code(s): R43.2 - Parageusia Status: Chronic Plan: Possibly associated with prior stroke however seems to be improving with current therapy. She does not describe any obvious dysphagia or odynophagia. Appreciate neurology and gastroenterology input. (4) Diabetes Code(s): E11.9 - Type 2 diabetes mellitus without complications Status: Chronic Plan: She has been holding her diabetic medications as she was having low sugars as an outpatient due to poor p.o. intake and weight loss. Will resume metformin at discharge. Her symptoms have not been consistent with classic gastroparesis. (5) High cholesterol Code(s): E78.00 - Pure hypercholesterolemia, unspecified Status: Chronic Plan: Outpatient medication (6) Hypertension Code(s): I10 - Essential (primary) hypertension Status: Chronic Plan: BP meds were held as blood pressure was initially low. BPs are slightly elevated now. Will resume benazepril at discharge. Continue to monitor. (7) Pancytopenia Code(s): D61.818 - Other pancytopenia Status: Acute Plan: Possibly associated with recent Bactrim use. Appreciate hematology input. Monitor CBC. No obvious active bleeding noted and hemoglobin relatively stable this morning. Stool Hemoccult negative. Outpatient follow-up with hematology. - Plan Discharge Planning: discharge home today. 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
[2018-07-31] MEDS: Amoxicillin/Clavulanate 875/125 MG Tablet PO SCH ×2 (07:37→08:11)
[2018-07-31] MEDS: Senna/Docusate Sodium 8.6/50 MG Tablet PO SCH ×2 (07:37→08:12)
[2018-07-31] MEDS: Lisinopril 10 MG Tablet PO SCH ×2 (07:37→08:12)
[2018-07-31] MEDS: Polyethylene Glycol 3350 17 GM Packet PO SCH ×2 (07:38→08:12)
[2018-07-31] MEDS: Insulin NovoLOG Aspart Correctional Sugar Inj SQ SCH (07:38)
[2018-07-31] MEDS: Heparin - SQ 10,000 UNITS/ML Vial SQ SCH (08:12)
[2018-07-31 08:32] LABS: Potassium 3.7 meq/L (3.5-5.1)
[2018-07-31 08:35] VITALS: BP 156/72; PULSE 69; RESP 16; TEMP 97.6; O2SAT 97
[2018-07-31 08:40] LABS: Carbon Dioxide 17.8 meq/L (21.0-32.0)
[2018-07-31 08:44] LABS: Baso % (Auto) 0.4 % (0.0-2.0); Eos # (Auto) 0.3 th/mm3 (0.0-0.4); Eos % (Auto) 6.1 % (0.0-4.0); Hematocrit 25.5 % (35.0-46.0); Hemoglobin 8.6 gm/dL (11.6-15.3); Lymph # (Auto) 1.6 th/mm3 (1.0-4.8); Lymph % (Auto) 34.8 % (9.0-44.0); Mean Corpuscular HGB Conc 33.8 % (32.0-36.0); Mean Corpuscular Hemoglobin 28.3 pg (27.0-34.0); Mean Corpuscular Volume 83.5 fL (80.0-100.0); Mono # (Auto) 0.4 th/mm3 (0.0-0.9); Neut # (Auto) 2.3 th/mm3 (1.8-7.7); Neut % (Auto) 50.7 % (16.0-70.0); Platelet Count 181 th/mm3 (150-450); Red Blood Count 3.05 mil/mm3 (4.00-5.30); Red Cell Distribution Width 13.3 % (11.6-17.2); White Blood Count 4.6 th/mm3 (4.0-11.0)
[2018-08-01] MEDS ORDERED: Pharmacy Ordered Lab Info OTHER ONE (15:45)
== END 2018-07-31 10:06 | disposition home or self-care (01) ==
LOC: PHED 10:32 → PHEDA 14:12 → PHICU 15:35 → PH3 07-28 17:38
PROVIDERS: ADMIT Family Medicine; ATTEND Family Medicine